=== PATIENT | female | born 1985 | race Caucasian/White ===

== ENCOUNTER 2016-11-05 18:17 | Inpatient (IN) | payer OTHER ==
[2016-11-06] MEDS ORDERED: Mineral Oil Sterile, TOPICAL* 25 ML BTL ONE (03:20)
[2016-11-06] MEDS ORDERED: Acetaminophen TAB* 325 MG PO PRN (07:33)
[2016-11-06] MEDS ORDERED: Glycerin ADULT SUPP PR PRN (07:33)
[2016-11-06] MEDS ORDERED: Oxytocin in LR* 20 UNITS/1,000 ML BAG IVPB SCH (08:00)
[2016-11-06] MEDS ORDERED: Simethicone CHEW TAB* 80 MG PO SCH (08:30)
[2016-11-06] MEDS: Ibuprofen TAB* 600 MG PO PRN ×3 (08:32→20:18)
[2016-11-06] MEDS: Witch Hazel PAD* JAR TOPICAL PRN (08:37)
[2016-11-06] MEDS: Dibucaine 1% 28.35 GM TUBE PR PRN (08:37)
[2016-11-06] MEDS ORDERED: OXYTOCIN* 10 UNITS/ML 1 ML VIAL ONE (09:26)
[2016-11-06] MEDS: Docusate CAP* 100 MG PO SCH ×2 (11:22→20:19)
[2016-11-07] MEDS: Ibuprofen TAB* 600 MG PO PRN ×3 (06:06→18:02)
[2016-11-07 07:07] LABS: Hematocrit 28 % (35-47); Hemoglobin 9.5 g/dl (12.0-16.0); Mean Corpuscular HGB Conc 33 g/dl (31-36); Mean Corpuscular Hemoglobin 31 pg (27-31); Mean Corpuscular Volume 92 fL (80-97); Mean Platelet Volume 9 um3 (7.4-10.4); Red Blood Count 3.08 10^6/ul (4.0-5.4); Red Cell Distribution Width 13 % (10.5-15)
--- NOTE | 2016-11-07 07:29 | PTEDU ---
Patient Name: SHONDA ARREDONDO SHONDA ARREDONDO selected video: Follow Me Mum: [facility] to view on 017 at 7:28:49 AM [id number]
--- NOTE | 2016-11-07 08:23 | PTEDU ---
Patient Name: SHONDA ARREDONDO SHONDA ARREDONDO selected video: Follow Me Mum: [facility] [place] [facility] to view on 017 at 8:22:51 [id number]
[2016-11-07] MEDS: Docusate CAP* 100 MG PO SCH ×3 (09:34→21:19)
[2016-11-07] MEDS: Ferrous Gluconate TAB* 324 MG TAB PO SCH ×2 (09:34→21:19)
[2016-11-08] MEDS: Ibuprofen TAB* 600 MG PO PRN ×2 (00:27→09:06)
[2016-11-08 08:12] VITALS: BP 111/57
[2016-11-08] MEDS: Docusate CAP* 100 MG PO SCH (09:01)
[2016-11-08] MEDS: Ferrous Gluconate TAB* 324 MG TAB PO SCH (09:01)
[2016-11-08] MEDS: Dibucaine 1% 28.35 GM TUBE PR PRN (10:41)
[2016-11-08] MEDS: Witch Hazel PAD* JAR TOPICAL PRN (10:41)
== END 2016-11-08 11:20 | disposition home or self-care (01) | DRG 775 ==
LOC: MCHOBOUT 18:17 → MCHOB 19:20
PROVIDERS: ADMIT Nurse Practitioner; ATTEND Nurse Practitioner
PROC: 4A1HX4Z Monitoring of Products of Conception, Cardiac Electrical Activity, External Approach (ICD-10-PCS; principal; 2016-11-05)
PROC: 10E0XZZ Delivery of Products of Conception, External Approach (ICD-10-PCS; 2016-11-05)
PROC: 0KQM0ZZ Repair Perineum Muscle, Open Approach (ICD-10-PCS; 2016-11-05)
PROC: 0W8NXZZ Division of Female Perineum, External Approach (ICD-10-PCS; 2016-11-05)
DX: O48.0 Post-term pregnancy (principal); O90.81 Anemia of the puerperium; O70.1 Second degree perineal laceration during delivery; Z37.0 Single live birth; Z3A.40 40 weeks gestation of pregnancy
CPT/HCPCS: 36415; 85025; A9270-GY; J2590

== ENCOUNTER 2019-07-25 06:00 | Inpatient (IN) | payer BC ==
--- OUTSIDE RECORDS SUMMARY | 2019-07-25 06:04 | XMS REPORT | Continuity of Care Document ---
:1985 External Reference #:[id number] Author Name Abida Perez MD (transmitted by agent of provider Makayla Serrano) Address [address] [place] [address] Problems Active Problems Provider Date Multigravida Danika Moncada CNM Onset: 03/26/2019 Placenta previa Danika Moncada CNM Onset: 03/26/2019 Social History Type Date Description Comments Sex Unknown Cigarette Use Does Not Smoke Cigarettes ETOH Use Alcohol Use Prior To 1 Glass of Wine Per Day Tobacco Use Start: Unknown Patient has never smoked Recreational Drug Use Does Not Use Drugs Smoking Status Reviewed: 07/20/19 Patient has never smoked Exercise Type/Frequency Exercises regularly Seat Belt/Car Seat Always uses seat belt EDITH: 11/05/2016 Estimated Date of Based on LMP Delivery Allergies, Adverse Reactions, Alerts Description No Known Drug Allergies Medications Active Medications SIG Qnty Indications Ordering Provider Date Breast Pump electric breast 1units Z39.1 Maryanne Pappas, 04/27/2019 Misc pump for lactating CNM mother Vitamins Unknown Medications Administered in Office Medication SIG Qnty Indications Ordering Provider Date Doc Med RSN No Tbco SCRN Abida Perez MD 07/20/2019 Injection PT SCRN Tbco Id as Non User Abida Perez MD 07/20/2019 Injection Immunizations CPT Code Status Date Vaccine Lot # [id number] Given 06/22/2019 Tetnus, Diptheria Toxoids And Acellular Pertussis, [id number] PT > 7Yrs Old [id number] Given 08/10/2016 Tetnus, Diptheria Toxoids And Acellular Pertussis, [id number] PT > 7Yrs Old Vital Signs Date Vital Result Comment 07/20/2019 3:02pm BP Systolic 124 mmHg BP Diastolic 76 mmHg Body Temperature 98.4 F Heart Rate 82 /min Respiratory Rate 16 /min Height 65.50 inches 5'5.50" Weight 176.00 lb BMI (Body Mass Index) 28.8 kg/m2 Last Menstrual Period 1291670 2 Parity 1 01/19/2019 1:12pm BP Systolic 112 mmHg BP Diastolic 68 mmHg Height 65.50 inches 5'5.50" Weight 137.00 lb BMI (Body Mass Index) 22.4 kg/m2 Last Menstrual Period 0046924 2 Parity 1 Results Test Acquired Date Facility Test Result H/L Range Note CBC Auto 07/19/2019 [facility] White Blood 11.8 10^3/uL High 3.5-10.8 [place] [address] Count [phone] Red Blood Count 3.60 10^6/uL Low 3.70-4.87 Hemoglobin 11.4 g/dL Low 12.0-16.0 Hematocrit 32 % Low 35-47 Mean Corpuscular Volume 90 fL Normal 80-97 Mean Corpuscular Hemoglobin 32 pg High 27-31 Mean Corpuscular HGB Conc 35 g/dL Normal 31-36 Red Cell Distribution Width 13 % Normal 10-15 Platelet Count 188 10^3/uL Normal 150-450 Mean Platelet Volume 8.0 fL Normal 7.4-10.4 Abs Neutrophils 9.0 10^3/uL High 1.5-7.7 Abs Lymphocytes 1.6 10^3/uL Normal 1.0-4.8 Abs Monocytes 1.1 10^3/uL High 0-0.8 Abs Eosinophils 0.1 10^3/uL Normal 0-0.6 Abs Basophils 0.1 10^3/uL Normal 0-0.2 Abs Nucleated RBC 0.0 10^3/uL Granulocyte % 76.3 % Lymphocyte % 13.1 % Monocyte % 9.1 % Eosinophil % 0.8 % Basophil % 0.7 % Nucleated Red Blood Cells % 0.0 Manual 07/19/2019 [facility] Immature 9.0 % Normal 0-9 [place] [address] Granulocytes [phone] Neutrophil % 67.0 % Band % 5.0 % Normal 0-8 Lymphocytes % 17.0 % Monocytes % 6.0 % Eosinophils % 1.0 % Metamyelocytes % 2.0 % Normal 0-2 Myelocytes % 2.0 % High 0-1 RBC Morphology Normal Normal Type And Screen 07/19/2019 [facility] Patient Blood [place] [address] [phone] Antibody Screen NEGATIVE Laboratory test 07/19/2019 [facility] 0.0 1 [place] [address] Hemoglobin [phone] Stain Laboratory test 07/11/2019 [facility] Genital For GRP SEE RESULT 2 [place] [address] B Strep Only BELOW [phone] Laboratory test 06/01/2019 [facility] Glucose 1 HR 98 mg/dL Normal 70-16 3 [place] [address] Post Prandial 0 [phone] CBC With No 06/01/2019 [facility] White Blood 10.0 Normal 3.5- 1 [place] [address] Count 10^3/uL 0.8 [phone] Red Blood Count 3.61 10^6/uL Low 3.70-4.87 Hemoglobin 11.4 g/dL Low 12.0-16.0 Hematocrit 34 % Low 35-47 Mean Corpuscular Volume 93 fL Normal 80-97 Mean Corpuscular Hemoglobin 32 pg High 27-31 Mean Corpuscular HGB Conc 34 g/dL Normal 31-36 Red Cell Distribution Width 13 % Normal 10-15 Platelet Count 191 10^3/uL Normal 150-450 Mean Platelet Volume 8.0 fL Normal 7.4-10.4 Laboratory test finding 03/26/2019 [facility] PDF Report SEE IMAGE [id number] Serum Integrated 03/26/2019 [facility] Interpretation: SEE NOTE 4 Screen, Part 2(MA) Risk for Ontd <1:5000 Age Risk Down Syndrome 1:480 GUILLAUME Down Syndrome Risk <1:5000 <1:270 GUILLAUME Trisomy 18 Risk <1:5000 <1:100 Calc'd Gestational Age 19.9 Afp, Serum 52.4 ng/mL Afp MoM 0.90 5 hCG, Serum 21.3 IU/mL hCG MoM 1.02 Estriol, Free 1.73 ng/mL Estriol MoM 0.95 Inhibin A, Dimeric 151 pg/mL Inhibin A MoM 0.78 Elise-A 65598.5 ng/mL 6 Elise-A MoM 14.50 7 Referring Physician Name CHARLOTTE Referring Physician Phone ON TEST REQ ABOV <SEE NOTE> 8 Referring Physician Npi [id number] Specimen # from Part 1 [id number] Date of 1985 Collection Date 03/26/2019 Maternal Weight 137 lbs Est'd Date of Delivery 08/14/2019 Mother's Ethnic Origin Insulin Depend Diabetic NO Repeat Specimen NO Number of Fetuses 1 Hx Of Neural Tube Defects NOT GIVEN Cigarette smoker NO 9 Laboratory test 02/19/2019 [facility] Miscellaneous Test See Comment [address] [place] [address] [phone] Zika Screen 02/05/2019 [facility] Zika Screen [place], SEE RESULT 11 [place] [place] [address] Serum BELOW [phone] Zika Screen [place], Urine SEE RESULT BELOW 12 Laboratory test finding 02/02/2019 [facility] PDF Report SEE IMAGE [id number] Serum Integrated 02/02/2019 [facility] Comment: SEE NOTE 13 Screen, Part 1 ([place]) Referring Physician Name DANIKA CHOUDHURYKIRILLCAROL Referring Physician Phone ON ABOVE Referring Physician Npi [id number] Date of 1985 Collection Date 02/02/2019 Maternal Weight 137 lbs Est'd Date of Delivery 08/14/2019 EDITH Determined by LMP Mother's Ethnic Origin Number of Fetuses 1 Insulin Depend Diabetic NO Repeat Specimen NO Hx Of Neural Tube Defects NOT GIVEN Prev Down Synd NO Donor Egg NOT GIVEN Donor Age: Egg Retrieval NOT GIVEN Cigarette smoker NO 1 Hemoglobin Interpretation: % Cells Volume of Maternal Hemorrhage 0.0 - 0.0045 Up to 15 ml 0.0046 - 0.0090 15 - 30 ml 0.0091 - 0.0135 30 - 45 ml 0.0136 - 0.0180 45 - 60 ml 0.0181 - 0.0225 60 - 75 ml 2 SEE RESULT BELOW Name: SHONDA ARREDONDO : [address]: Ricci Rudolph DO Acct: [id number] Unit: [id number] AGE: 33 Location: [facility] Re07/11/19 SEX: F Status: REG REF SPEC: [id number] VON: 07/11/19-[address]: Ricci Rudolph DO REQ: [id number] RECD: 07/11/19 STATUS: COMP _ SOURCE: RAJ/ANEESH/GOLD SPDESC: ORDERED: Blanca Seguran COMMENTS: [id number] QUERIES: Is Patient Penicillin Allergic? N Is patient penicillin allergic and/or sensitivities needed? N Provider Requisition # C77#[id number]_ Procedure Result Reported Site Group B Strep Culture Screen Final 07/13/19- 0809 ML Group B Strep Screen Negative * [facility] - Main Lab . END OF REPORT DEPARTMENT OF PATHOLOGY, [address] [place] [address] Phi Vazquez M.D. Director [facility] # [id number] 3 [id number] SCREEN NEGATIVE FOR OPEN NTD, DOWN SYNDROME AND TRISOMY 18. 5 Reference Range: <2.50 IDD <1.90 TWINS <4.00 TWINS IDD <3.50 TRIPLETS <4.50 6 This test was performed using a kit that has not been cleared or approved by the FDA. The analytical performance characteristics of this test have been determined by [employer] [facility]. This test should not be used for diagnosis without confirmation by other medically established means. 7 The Serum Integrated Screen combines ELISE-A in the first trimester with AFP, unconjugated estriol, intact hCG and Inhibin A in the second trimester. This provides a useful screening test for detection of open neural tube defects, Down syndrome and Trisomy 18. It should be noted that normal results can never guarantee the of a normal baby and that 2 to 3 percent of newborns have some type of physical or mental defect, many of which are undetectable through any known diagnostic technique. Interpretation reviewed by: Sherley Baltazar, Ph.D., [facility]. 8 ON TEST REQ ABOVE 9 This is a screening test, not a diagnostic test. This risk assessment is based on demographic data provided by the ordering physician. Please notify the laboratory promptly if any data are incorrect. It has been observed that patients who smoke cigarettes during may have a slightly increased risk of having a false positive GUILLAUME screen for Down Syndrome or trisomy 18. If you have questions concerning this report: For clinical consultation, call ; For technical questions, call ext [phone]; For recalculations, fax to . For additional information, please refer to http://[employer]/faq/FAQ78 (This link is being provided for informational/educational purposes only.) 10 Test Result Flag Unit RefValue Controlled Substance Monitoring, U List Patient's Not Provided Current Medications ADDITIONAL INFORMATION Accuracy and completeness of declared medications on reports solely dependent on information submitted by client. Creatinine, U 23.2 mg/dL Specific [place] 1.006 pH 5.4 Oxidants Negative REFERENCE VALUE Cutoff: 200 mg/L Comment Normal Amphetamines Negative ng/mL REFERENCE VALUE Cutoff: 500 Barbiturates Negative ng/mL REFERENCE VALUE Cutoff: 200 Cocaine Negative ng/mL REFERENCE VALUE Cutoff: 150 Phencyclidine Negative ng/mL Cutoff: 25 Tetrahydrocannabinol Negative ng/mL Cutoff: 50 ADDITIONAL INFORMATION This report is intended for use in clinical monitoring or management of patients. It is not intended for use in employment-related testing. Codeine Not Detected ng/mL Cutoff: 25 Tylenol 3 Tzluxtf-2-kstg- Not Detected ng/mL glucuronide Metabolite of codeine REFERENCE VALUE Cutoff: 100 Morphine Not Detected ng/mL Cutoff: 25 Luana Ham MS Contin; Also a minor metabolite (10%) of codeine and can be seen in low concentrations (<2,000 ng/mL) with poppy seed ingestion. Pzwsyfqi-0-mces- Not Detected ng/mL glucuronide Metabolite of morphine REFERENCE VALUE Cutoff: 100 6-monoacetylmorphine Not Detected ng/mL Cutoff: 25 Metabolite of heroin Hydrocodone Not Detected ng/mL Cutoff: 25 Lortab, [place], Vicodin; Also a very minor metabolite of codeine and impurity (<1%) of oxycodone. Norhydrocodone Not Detected ng/mL Cutoff: 25 Metabolite of hydrocodone Dihydrocodeine Not Detected ng/mL Cutoff: 25 Metabolite of hydrocodone Hydromorphone Not Detected ng/mL Cutoff: 25 Dilaudid, Exalgo; Also a metabolite of hydrocodone and a minor (<5%) metabolite of morphine. Hydromorphone-3- Not Detected ng/mL beta-glucuronide Metabolite of hydromorphone REFERENCE VALUE Cutoff: 100 Oxycodone Not Detected ng/mL Cutoff: 25 Endocet, Percocet, Oxycontin Noroxycodone Not Detected ng/mL Cutoff: 25 Metabolite of oxycodone Oxymorphone Not Detected ng/mL Cutoff: 25 Numorphan, Opana; Also a metabolite of oxycodone. Ywavgfhppqe-0-vndg- Not Detected ng/mL glucuronide Metabolite of oxymorphone REFERENCE VALUE Cutoff: 100 Noroxymorphone Not Detected ng/mL Cutoff: 25 Metabolite of oxymorphone Fentanyl Not Detected ng/mL Cutoff: 2 Actiq, Duragesic, Fentora Norfentanyl Not Detected ng/mL Cutoff: 2 Metabolite of fentanyl Meperidine Not Detected ng/mL Cutoff: 25 Demerol Normeperidine Not Detected ng/mL Cutoff: 25 Metabolite of meperidine Naloxone Not Detected ng/mL Cutoff: 25 Narcan Flyhydru-8-whwa- Not Detected ng/mL glucuronide Metabolite of naloxone REFERENCE VALUE Cutoff: 100 Methadone Not Detected ng/mL Cutoff: 25 Dolophine EDDP Not Detected ng/mL Cutoff: 25 Metabolite of methadone Propoxyphene Not Detected ng/mL Cutoff: 25 Darvon, Darvocet Norpropoxyphene Not Detected ng/mL Cutoff: 25 Metabolite of propoxyphene Tramadol Not Detected ng/mL Cutoff: 25 Tradol, Ultram, Ultracet O-desmethyltramadol Not Detected ng/mL Cutoff: 25 Metabolite of tramadol Tapentadol Not Detected ng/mL Cutoff: 25 Nucynta N- Not Detected ng/mL Cutoff: 50 desmethyltapentadol Metabolite of tapentadol Tapentadol-beta- Not Detected ng/mL glucuronide Metabolite of tapentadol REFERENCE VALUE Cutoff: 100 Buprenorphine Not Detected ng/mL Cutoff: 5 Buprenex, Suboxone Norbuprenorphine Not Detected ng/mL Cutoff: 5 Metabolite of buprenorphine Norbuprenorphine Not Detected ng/mL Cutoff: 20 glucuronide Metabolite of buprenorphine Opioid See Comment Interpretation No opioids were detected. The absence of expected drug(s) and/or drug metabolite(s) may indicate non-compliance, altered pharmacokinetics, inappropriate timing of specimen collection relative to drug administration, diluted/adulterated urine, or limitations of testing. ADDITIONAL INFORMATION This test was developed and its performance characteristics determined by [facility] in a manner consistent with CLIA requirements. This test has not been cleared or approved by the U.S. Food and Drug Administration. Alprazolam Not Detected ng/mL Cutoff: 10 Xanax Alpha- Not Detected ng/mL Cutoff: 10 Hydroxyalprazolam Metabolite of Alprazolam Alpha- Not Detected ng/mL Cutoff: 50 Hydroxyalprazolam Glucuronide Metabolite of Alprazolam Chlordiazepoxide Not Detected ng/mL Cutoff: 10 Librium Clobazam Not Detected ng/mL Cutoff: 10 Frisium, Onfi N-Desmethylclobazam Not Detected ng/mL Metabolite of Clobazam REFERENCE VALUE Cutoff: 200 Clonazepam Not Detected ng/mL Cutoff: 10 Klonopin, Rivotril 7-aminoclonazepam Not Detected ng/mL Cutoff: 10 Metabolite of Clonazepam Diazepam Not Detected ng/mL Cutoff: 10 Valium Nordiazepam Not Detected ng/mL Cutoff: 10 Metabolite of Chlordiazepoxide, Diazepam, or Prazepam. Flunitrazepam Not Detected ng/mL Cutoff: 10 Rohypnol 7-aminoflunitrazepam Not Detected ng/mL Cutoff: 10 Metabolite of Flunitrazepam Flurazepam Not Detected ng/mL Cutoff: 10 Dalmane 2-Hydroxy Ethyl Not Detected ng/mL Cutoff: 10 Flurazepam Metabolite of Flurazepam Lorazepam Not Detected ng/mL Cutoff: 10 Ativan Lorazepam Not Detected ng/mL Cutoff: 50 Glucuronide Metabolite of Lorazepam Midazolam Not Detected ng/mL Cutoff: 10 Versed Alpha-Hydroxy Not Detected ng/mL Cutoff: 10 Midazolam Metabolite of Midazolam Oxazepam Not Detected ng/mL Cutoff: 10 Serax; Also a metabolite of Chlordiazepoxide, Diazepam, or Temazepam. Oxazepam Glucuronide Not Detected ng/mL Cutoff: 50 Metabolite of Oxazepam Prazepam Not Detected ng/mL Cutoff: 10 Centrax Temazepam Not Detected ng/mL Cutoff: 10 Restoril; Also a metabolite of Diazepam. Temazepam Not Detected ng/mL Cutoff: 50 Glucuronide Metabolite of Temazepam Triazolam Not Detected ng/mL Cutoff: 10 Halcion Alpha-Hydroxy Not Detected ng/mL Cutoff: 10 Triazolam Metabolite of Triazolam Zolpidem Not Detected ng/mL Cutoff: 10 Ambien Zolpidem Phenyl-4- Not Detected ng/mL Cutoff: 10 Carboxylic acid Metabolite of Zolpidem Benzodiazepine See Comment Interpretation No benzodiazepines were detected. The absence of expected drug(s) and/or drug metabolite(s) may indicate non-compliance, altered pharmacokinetics, inappropriate timing of specimen collection relative to drug administration, diluted/adulterated urine, or limitations of testing. ADDITIONAL INFORMATION This test was developed and its performance characteristics determined by [facility] in a manner consistent with CLIA requirements. This test has not been cleared or approved by the U.S. Food and Drug Administration. Test Performed by: [facility] [place] [address] Sales Trader: Nadir Goodson M.D. Ph.D.; CLIA# [id number] 11 SEE RESULT BELOW Name: SHONDA ARREDONDO : [address]: Briseyda Lozano MD Acct: [id number] Unit: [id number] AGE: 33 Location: [facility] Re02/05/19 SEX: F Status: REG REF SPEC: [id number] VON: 02/05/[address] [facility] [address]: Briseyda Lozano MD REQ: [id number] RECD: 02/05/19 STATUS: COMP _ SOURCE: SERUM SPDESC: ORDERED: Zika Screen, S COMMENTS: [id number] Procedure Result Reported Site Zika Screen [facility], Serum Final 02/13/19- 0825 ML Zika virus RNA by real-time RT-PCR*:NOT DETECTED Zika Serology Zika IgM Rapid Test No serologic evidence of recent Zika virus infection detected.If this specimen was collected < 8 days after symptom onset or < 3 weeks after exposure, negative results shouldbe confirmed by collecting another specimen in 3 weeks. If the specimen was collected > 8 days after symptomonset or > 3 weeks after exposure, negative results suggest the absence of current or recent infection. [id number] collected: Negative Please see additional information about zika virus at: Fact Sheet for Patients: Understanding Results from theZika IgM Rapid Test http://[employer]/wp-content/uploads//For-patients.p df Fact Sheet for Healthcare Providers: Interpreting Zika IgM Rapid Test Results http://[employer]/wp-content/uploads//Sqo-cjqtne-now e-workes.pdf For detailed test interpretation guidance, please visit: https://health.[place].gov/diseases/zika_virus/providers.htm CONTINUED ON NEXT PAGE DEPARTMENT OF PATHOLOGY, [address] [place] [address] Phi Vazquez M.D. Director [facility] # [id number] Patient: SHONDA ARREDONDO [id number] (Continued) Specimen: [id number] Collected: 02/05/19 Received: 02/05/19 (Continued) Procedure Result Reported Site Zika Screen [facility], Serum Final (continued) 02/13/19824 Flavivirus Polyvalent Microsphere Immunofluorescence Assay (IgG+IgM+IgA)* Results suggest the absence of Zika and dengue antibodies. If recent infection is suspected collect another specimen in three weeks. Zika Polyvalent Microsphere Immunofluorescence Assay [id number] collected 02/05/19Result:Non-Reactive Dengue Polyvalent Microsphere Immunofluorescence Assay [id number] collected 02/05/19Result:Non-Reactive * The performance characteristics of this test were determined by the [facility]. It has not been cleared or approved by the U.S.Food and Drug Administration. Cross reactivity frequently occurs in serologic testing. Test Performed by: [facility] of [address] [address] * ML - Main Lab . END OF REPORT DEPARTMENT OF PATHOLOGY, [address] [place] [address] Phi Vazquez M.D. Director [facility] # [id number] 12 SEE RESULT BELOW Name: SHONDA ARREDONDO : [address]: Briseyda Lozano MD Acct: [id number] Unit: [id number] AGE: 33 Location: [facility] Re02/05/19 SEX: F Status: REG REF SPEC: [id number] VNO: 02/05/[address] [facility] [address]: Briseyda Lozano MD REQ: [id number] RECD: 02/05/19 STATUS: COMP _ SOURCE: URINE SPDESC: ORDERED: Zika Screen, Ur COMMENTS: [id number] Procedure Result Reported Site Zika Screen [facility], Urine Final 02/13/19- 0826 ML Zika virus RNA by real-time RT-PCR*:NOT DETECTED * The performance characteristics of this test were determined by the [facility]. It has not been cleared or approved by the U.S.Food and Drug Administration. Cross reactivity frequently occurs in serologic testing. Test Performed by: [facility] [address] [place] [address] * ML - Main Lab . END OF REPORT DEPARTMENT OF PATHOLOGY, [address] [place] [address] Phi Vazquez M.D. Director [facility] # [id number] 13 Thank you for submitting this patients Part 1 specimen. Please submit her Part 2 specimen between 02/20/2019-04/16/2019 (15.0 and 22.9 weeks gestation) with 02/20/2019-03/05/2019 (15.0 and 16.9 weeks gestation) being optimal. When submitting Part 2, please include the following Specimen # from Part 1: [id number] This test was developed and its analytical performance characteristics have been determined by [employer] [facility]. It has not been cleared or approved by FDA. This assay has been validated pursuant to the CLIA regulations and is used for clinical purposes. For additional information, please refer to http://education.[employer].Prelert/faq/FAQ91 (This link is being provided for informational/educational purposes only.) It has been observed that patients who smoke cigarettes during may have a slightly increased risk of having a false positive GUILLAUME screen for Down Syndrome or trisomy 18. If you have questions concerning this report: For clinical consultation, call ; For technical questions, call ext [phone]; For recalculations, fax to . Procedures Date Code Description Status 07/20/2019 08285 Biophysical Profile Without Non Stress Test Completed 07/05/2019 87123 Biophysical Profile Without Non Stress Test Completed 07/05/2019 24984 Echography Uterus Follow-Up Or Repeat Completed 06/28/2019 63244 Biophysical Profile W/ NST Completed 06/28/2019 09546 Non-Stress Test Completed 06/22/2019 40698 Biophysical Profile Without Non Stress Test Completed 06/22/2019 33832 Echography Uterus Limited Completed 06/08/2019 16228 Biophysical Profile Without Non Stress Test Completed 06/08/2019 53248 Echography Uterus Follow-Up Or Repeat Completed 03/26/2019 60737 Echography Uterus Complete Completed Medical Devices Description No Information Available Encounters Type Date Location Provider Dx Diagnosis Office Visit 07/20/2019 [facility] Office Abida Perez, O34.211 Matern care for low 3:00p MD transverse scar from prev del Assessments Date Code Description Provider 07/20/2019 O44.13 Complete placenta previa with hemorrhage, Abida Perez MD third trimester 07/20/2019 O34.211 Maternal care for low transverse scar from Abida Perez MD previous delivery 07/20/2019 O44.13 Complete placenta previa with hemorrhage, Ultrasounds third trimester 07/11/2019 O44.03 Complete placenta previa NOS or without Ricci Rudolph JR, DO hemorrhage, third trimester 07/05/2019 O44.13 Complete placenta previa with hemorrhage, Mary Ann Rios MD third trimester 07/05/2019 O44.03 Complete placenta previa NOS or without Mary Ann Rios MD hemorrhage, third trimester 07/05/2019 O44.13 Complete placenta previa with hemorrhage, Ultrasounds third trimester 06/28/2019 Z36.9 Encounter for screening, Dennis Estes M.D. unspecified 06/28/2019 O44.13 Complete placenta previa with hemorrhage, Dennis Estes M.D. third trimester 06/28/2019 O44.13 Complete placenta previa with hemorrhage, Ultrasounds third trimester 06/22/2019 O44.13 Complete placenta previa with hemorrhage, Mary Ann Rios MD third trimester 06/22/2019 Z23 Encounter for immunization Mary Ann Rios MD 06/22/2019 O44.13 Complete placenta previa with hemorrhage, Mary Ann Rios MD third trimester 06/22/2019 O44.13 Complete placenta previa with hemorrhage, Ultrasounds third trimester 06/22/2019 O41.03x1 Oligohydramnios, third trimester, fetus 1 Mary Ann Rios MD 06/08/2019 O44.02 Complete placenta previa NOS or without Ricci Ronni CABRERA, DO hemorrhage, second trimester 06/08/2019 O44.03 Complete placenta previa NOS or without Xiomara Rivera, CNM hemorrhage, third trimester 06/08/2019 O44.02 Complete placenta previa NOS or without Ultrasounds hemorrhage, second trimester 06/01/2019 Z36.9 Encounter for screening, Mary Ann Rios MD unspecified 06/01/2019 Z36.9 Encounter for screening, Laboratory unspecified 04/23/2019 O44.02 Complete placenta previa NOS or without Danika Moncada CNM hemorrhage, second trimester 03/26/2019 Z36.9 Encounter for screening, Mary Ann Rios MD unspecified 03/26/2019 Z36.3 Encounter for screening for Briseyda Lozano MD malformations 03/26/2019 Z36.3 Encounter for screening for Ultrasounds malformations 03/26/2019 O44.02 Complete placenta previa NOS or without Danika Moncada CNM hemorrhage, second trimester 03/26/2019 Z36.9 Encounter for screening, Laboratory unspecified 02/19/2019 Z34.82 Encounter for supervision of other normal Maryanne Pappas CNM , second trimester 02/05/2019 Z36.9 Encounter for screening, Briseyda Lozano MD unspecified 02/05/2019 Z36.9 Encounter for screening, Laboratory unspecified 02/02/2019 Z36.9 Encounter for screening, Briseyda Lozano MD unspecified 02/02/2019 Z36.9 Encounter for screening, Laboratory unspecified 02/02/2019 Z34.81 Encounter for supervision of other normal Danika Moncada CNM , first trimester Plan of Treatment Future Appointment(s):08/28/2019 11:00 am - Abida Perez MD at [facility] 2:00 pm - Danika Moncada CNM at [facility]07/25/2019 7:45 am - Abida Perez MD [place] [facility] [place] R007/20/2019 - Abida Perez MDO34.211 Maternal care for low transverse scar from previous deliveryComments:Plans PCS. Reviewed how/when to call prior to that. Reviewed risks of procedure including but not limited to hemorrhage, infection, pain blood clots and injury to nearby organs. Consents signed and questions answered. Reviewed recovery and importance of no heavy lifting or straining.RTO 1wk andthen 1mo for post-op visit. Functional Status Description No Information Available Mental Status Description No Information Available Referrals Description No Information Available
--- OUTSIDE RECORDS SUMMARY | 2019-07-25 06:04 | XMS REPORT | Continuity of Care Document ---
:1985 External Reference #:[id number] Author Name Ultrasounds (transmitted by agent of provider Makayla Serrano) Address [address] [place] [address] Problems Active Problems Provider Date Multigravida Danika [...] Date Breast Pump electric breast 1units Z39.1 Arnolgabriel Pradoes, 04/27/2019 Misc pump for lactating CNM mother Vitamins Unknown Medications Administered in Office Medication SIG Qnty Indications Ordering Provider Date PT SCRN Tbco Id as Non User Abida Perez MD 07/20/2019 Injection Immunizations CPT Code Status Date Vaccine Lot # [id number] Given 06/22/2019 Tetnus, Diptheria Toxoids And Acellular Pertussis, [id number] PT > 7Yrs Old [address] Given 08/10/2016 Tetnus, Diptheria Toxoids And Acellular Pertussis, [id number] PT > 7Yrs Old Vital Signs Date Vital Result Comment 07/20/2019 3:02pm BP Systolic 124 mmHg BP Diastolic 76 mmHg Body Temperature 98.4 F Heart Rate 82 /min Respiratory Rate 16 /min Height 65.50 inches 5'5.50" Weight 176.00 lb BMI (Body Mass Index) 28.8 kg/m2 Last Menstrual Period [id number] 2 Parity 1 01/19/2019 1:12pm BP Systolic 112 mmHg BP Diastolic 68 mmHg Height 65.50 inches 5'5.50" Weight 137.00 lb BMI (Body Mass Index) 22.4 kg/m2 Last Menstrual Period 9648982 2 Parity 1 Results Test Acquired Date Facility Test Result H/L Range Note CBC Auto 07/19/2019 [facility] White Blood 11.8 10^3/uL High 3.5-10.8 [place] [address] Count [phone] Red Blood Count 3.60 10^6/uL Low 3.70-4.87 [...] Red Blood Cells % 0.0 Manual 07/19/2019 [facility] Immature 9.0 % Normal 0-9 [place] [address] Granulocytes [phone] Neutrophil % 67.0 % Band % 5.0 % Normal 0-8 Lymphocytes % 17.0 % Monocytes % 6.0 % Eosinophils % 1.0 % Metamyelocytes % 2.0 % Normal 0-2 Myelocytes % 2.0 % High 0-1 RBC Morphology Normal Normal Type And Screen 07/19/2019 [facility] Patient [place] [address] [phone] Antibody Screen NEGATIVE Laboratory test 07/19/2019 [facility] 0.0 1 [place] [address] Hemoglobin [phone] Stain Laboratory test 07/11/2019 [facility] Genital For GRP SEE RESULT 2 [place] [address] B Strep Only BELOW [phone] Laboratory test 06/01/2019 [facility] Glucose 1 HR 98 mg/dL Normal 70-16 3 [place] [address] Post Prandial 0 [phone] CBC With No 06/01/2019 [facility] White Blood 10.0 Normal 3.5- 1 [place] [address] Count 10^3/uL 0.8 [phone] Red Blood Count 3.61 10^6/uL Low 3.70-4.87 [...] [facility] Enhanced PDF Report SEE IMAGE [id number] Serum Integrated 03/26/2019 [facility] Interpretation: SEE NOTE 4 Screen, Part 2(IN) Risk for Ontd <1:5000 Age Risk Down Syndrome 1:480 GUILLAUME Down Syndrome Risk <1:5000 <1:270 GUILLAUME Trisomy 18 Risk <1:5000 <1:100 Calc'd Gestational Age 19.9 Afp, Serum 52.4 ng/mL Afp MoM 0.90 5 hCG, Serum 21.3 IU/mL hCG MoM 1.02 Estriol, Free 1.73 ng/mL Estriol MoM 0.95 Inhibin A, Dimeric 151 pg/mL Inhibin A MoM 0.78 Elise-A 56155.5 ng/mL 6 Elise-A MoM 14.50 7 Referring Physician Name MACARALD Referring Physician Phone ON TEST REQ ABOV <SEE NOTE> 8 Referring Physician Npi [id number] Specimen # from Part 1 [id number] Date of 1985 Collection Date 03/26/2019 Maternal Weight 137 lbs Est'd Date of Delivery 08/14/2019 Mother's Ethnic Origin Insulin Depend Diabetic NO Repeat Specimen NO Number of Fetuses 1 Hx Of Neural Tube Defects NOT GIVEN Cigarette smoker NO 9 Laboratory test 02/19/2019 [facility] Miscellaneous Test See Comment [address] [place] [address] [phone] Zika Screen 02/05/2019 [facility] Zika Screen [place], SEE RESULT 11 [place] ([facility] [place] [place] [address] Serum BELOW [phone] Zika Screen [place], Urine SEE RESULT BELOW 12 Laboratory test finding 02/02/2019 [facility] Enhanced PDF Report SEE IMAGE [id number] Serum Integrated 02/02/2019 [facility] Comment: SEE NOTE 13 Screen, Part 1 (IN) Referring Physician Name DANIKA MONCADA Referring Physician Phone ON ABOVE Referring Physician Npi [id number] Date of 1985 Collection Date 02/02/2019 Maternal [...] [address]: Ricci Rudolph DO Acct: [id number] Unit: [id number] AGE: 33 Location: [facility] Re07/11/19 SEX: F Status: REG REF SPEC: [id number] VON: 07/11/19-[address]: Ricci Rudolph DO REQ: [id number] RECD: 07/11/19 STATUS: COMP _ SOURCE: CER/VAG/RE SPDESC: ORDERED: Grp B Strp Scrn COMMENTS: [id number] QUERIES: Is Patient Penicillin Allergic? N Is patient penicillin allergic and/or sensitivities needed? N Provider Requisition # C77#[id number] Procedure Result Reported Site Group B Strep Culture Screen Final 07/13/19- 0809 ML Group B Strep Screen Negative * ML - Main Lab . END OF REPORT DEPARTMENT OF PATHOLOGY, [address] [place] [address] Phi Vazquez M.D. Director [facility] # [id number] 3 [id number] SCREEN NEGATIVE FOR OPEN NTD, DOWN SYNDROME AND TRISOMY 18. 5 Reference Range: <2.50 IDD <1.90 TWINS <4.00 TWINS IDD <3.50 TRIPLETS <4.50 6 This test was performed using a kit that has not been cleared or approved by the FDA. The analytical performance characteristics of this test have been determined by [facility]. This test should not be used for diagnosis without confirmation by other medically established means. 7 The Serum Integrated Screen combines ELIES-A in the first trimester with AFP, unconjugated [...] technique. Interpretation reviewed by: Sherley Baltazar, Ph.D., [facility] [place] [facility]. 8 ON TEST REQ ABOVE 9 This [...] call ; For technical questions, call ext [phone]; For recalculations, fax to . For additional information, please refer to http://[employer].CubeTree/faq/FAQ25 (This link is being provided for informational/educational purposes only.) 10 Test Result Flag Unit RefValue Controlled Substance Monitoring, U List Patient's Not Provided Current Medications ADDITIONAL INFORMATION Accuracy and completeness of declared medications on reports solely dependent on information submitted by client. Creatinine, U 23.2 mg/dL Specific [place] 1.006 pH 5.4 Oxidants Negative REFERENCE VALUE [...] Not Detected ng/mL Cutoff: 25 Tylenol 3 Mmoypkw-7-gbsa- Not Detected ng/mL glucuronide Metabolite of codeine REFERENCE VALUE Cutoff: 100 Morphine Not Detected ng/mL Cutoff: 25 Luana Ham MS Contin; Also a minor metabolite (10%) of codeine and can be seen in low concentrations (<2,000 ng/mL) with poppy seed ingestion. Lwastvoc-9-pwwz- Not Detected ng/mL glucuronide Metabolite of morphine REFERENCE VALUE Cutoff: 100 6-monoacetylmorphine Not Detected ng/mL Cutoff: 25 Metabolite of heroin Hydrocodone Not Detected ng/mL Cutoff: 25 Lortab, [place], Vicodin; Also a very minor metabolite of [...] Numorphan, Opana; Also a metabolite of oxycodone. Pvmrkxpfihp-1-qqzb- Not Detected ng/mL glucuronide Metabolite of oxymorphone REFERENCE VALUE Cutoff: 100 Noroxymorphone Not Detected ng/mL Cutoff: 25 Metabolite of oxymorphone Fentanyl Not Detected ng/mL Cutoff: 2 Actiq, Duragesic, [place] Norfentanyl Not Detected ng/mL Cutoff: 2 Metabolite of fentanyl Meperidine Not Detected ng/mL Cutoff: 25 Demerol Normeperidine Not Detected ng/mL Cutoff: 25 Metabolite of meperidine Naloxone Not Detected ng/mL Cutoff: 25 Narcan Salgwukv-6-jyqx- Not Detected ng/mL glucuronide Metabolite of naloxone [...] developed and its performance characteristics determined by [facility] in a manner consistent with CLIA requirements. [...] developed and its performance characteristics determined by [facility] in a manner consistent with CLIA requirements. This test has not been cleared or approved by the U.S. Food and Drug Administration. Test Performed by: [facility] [address] [place] [address] Skein Yarn Dyer: Nadir Goodson M.D. Ph.D.; CLIA# [id number] 11 SEE RESULT BELOW Name: ARNULFOSHONDA UNDERWOOD : [address]: Briseyda Lozano MD Acct: [id number] Unit: [id number] AGE: 33 Location: [facility] Re02/05/19 SEX: F Status: REG REF SPEC: [id number] VON: 02/05/[address]: Briseyda Lozano MD REQ: [id number] RECD: 02/05/19 STATUS: COMP _ SOURCE: SERUM SPDESC: ORDERED: Nathaniel Burton S COMMENTS: [id number] Procedure Result Reported Site Zika Screen [facility], Serum Final 02/13/19- 0825 ML Zika virus [...] the absence of current or recent infection. [id number] collected: Negative Please see additional information about zika virus at: Fact Sheet for Patients: Understanding Results from theZika IgM Rapid Test http://Magiq/wp-content/uploads//For-patients.p df Fact Sheet for Healthcare Providers: Interpreting Zika IgM Rapid Test Results http://Magiq/wp-content/uploads//Ido-crpsin-myl e-workes.pdf For detailed test interpretation guidance, please visit: https://health.[place].gov/diseases/zika_virus/providers.htm CONTINUED ON NEXT PAGE DEPARTMENT OF PATHOLOGY, [address] [place] [address] Phi Vazquez M.D. Director [facility] # [id number] Patient: SHONDA ARREDONDO [id number] (Continued) Specimen: [id number] Collected: 02/05/19 Received: 02/05/19-1244 (Continued) Procedure Result Reported Site Zika Screen [facility], Serum Final (continued) 02/13/19824 Flavivirus Polyvalent Microsphere Immunofluorescence Assay (IgG+IgM+IgA)* Results suggest the absence of Zika and dengue antibodies. If recent infection is suspected collect another specimen in three weeks. Zika Polyvalent Microsphere Immunofluorescence Assay [id number] collected 02/05/19Result:Non-Reactive Dengue Polyvalent Microsphere Immunofluorescence Assay [id number] collected 02/05/19Result:Non-Reactive * The performance characteristics of this test were determined by the [facility]. It has not been cleared or approved by the U.S.Food and Drug Administration. Cross reactivity frequently occurs in serologic testing. Test Performed by: [address] [address] * - [facility] . END OF REPORT DEPARTMENT OF PATHOLOGY, [address] [place] [address] Phi Vazquez M.D. Director [facility] # [id number] 12 SEE RESULT BELOW Name: SHONDA ARREDONDO : [address]: Briseyda Lozano MD Acct: [id number] Unit: [id number] AGE: 33 Location: [facility] Re02/05/19 SEX: F Status: REG REF SPEC: [id number] VON: 02/05/19-[address]: Briseyda Lozano MD REQ: [id number] RECD: 02/05/19 STATUS: COMP _ SOURCE: URINE SPDC: ORDERED: Zika Screen, Ur COMMENTS: [id number] Procedure Result Reported Site Zika Screen [facility], Urine Final 02/13/19- 08 ML Zika virus RNA by real-time RT-PCR*:NOT DETECTED * The performance characteristics of this test were determined by the [facility]. It has not been cleared or approved by the U.S.Food and Drug Administration. Cross reactivity frequently occurs in serologic testing. Test Performed by: [facility] [address] [place] [address] * [facility] - Main Lab . END OF REPORT DEPARTMENT OF PATHOLOGY, [address] [place] [address] Phi Vazquez M.D. Director [facility] # [id number] 13 Thank you for submitting this patients Part 1 specimen. Please submit her Part 2 specimen between 02/20/2019-04/16/2019 (15.0 and 22.9 weeks gestation) with 02/20/2019-03/05/2019 (15.0 and 16.9 weeks gestation) being optimal. When submitting Part 2, please include the following Specimen # from Part 1: [id number] This test was developed and its analytical performance characteristics have been determined by [facility]. It has not been cleared or approved by FDA. This assay has been validated pursuant to the CLIA regulations and is used for clinical purposes. For additional information, please refer to http://education.Alkymos.com/faq/FAQ91 (This link is being provided for informational/educational purposes only.) It has been observed that patients who smoke cigarettes during may have a slightly increased risk of having a false positive GUILLAUME screen for Down Syndrome or trisomy 18. If you have questions concerning this report: For clinical consultation, call ; For technical questions, call ext [phone]; For recalculations, fax to . Procedures Date Code Description Status 07/20/2019 52197 Biophysical Profile Without Non Stress Test Completed 07/05/2019 22654 Biophysical Profile Without Non Stress Test Completed 07/05/2019 93918 Echography Uterus Follow-Up Or Repeat Completed 06/28/2019 61568 Biophysical Profile W/ NST Completed 06/28/2019 19535 Non-Stress Test Completed 06/22/2019 95521 Biophysical Profile Without Non Stress Test Completed 06/22/2019 71705 Echography Uterus Limited Completed 06/08/2019 59212 Biophysical Profile Without Non Stress Test Completed 06/08/2019 73379 Echography Uterus Follow-Up Or Repeat Completed 03/26/2019 95030 Echography Uterus Complete Completed Medical Devices Description [...] Complete placenta previa NOS or without Ricci Cookamada CABRERA, DO hemorrhage, second trimester 06/08/2019 O44.03 Complete placenta previa NOS or without Xiomarajessica Rivera, CNM hemorrhage, third trimester 06/08/2019 O44.02 Complete placenta previa NOS or without Ultrasounds hemorrhage, second trimester 06/01/2019 Z36.9 Encounter for screening, Mary Ann Rios MD unspecified 06/01/2019 Z36.9 Encounter for screening, Laboratory unspecified 04/23/2019 O44.02 Complete placenta previa NOS or without Danika Moncada, CNM hemorrhage, second trimester 03/26/2019 Z36.9 Encounter for screening, Mary Ann Rios MD unspecified 03/26/2019 Z36.3 Encounter for screening for Briseyda Lozano MD malformations 03/26/2019 Z36.3 Encounter for screening for Ultrasounds malformations 03/26/2019 O44.02 Complete placenta previa NOS or without Danika Moncada, CNM hemorrhage, second trimester 03/26/2019 Z36.9 Encounter [...] 11:00 am - Abida Perez MD at [facility] 2:00 pm - Danika Moncada CNM at [facility]07/25/2019 7:45 am - Abida Perez MD at [place] 4471307/20/2019 - Abida Perez MDO34.211 Maternal care for [...]
--- OUTSIDE RECORDS SUMMARY | 2019-07-25 06:05 | XMS REPORT | Continuity of Care Document ---
:1985 External Reference #:[id number] Author Name Abida Perez MD Address [address] [place] [address] Problems Active Problems Provider Date Multigravida Danika [...] CPT Code Status Date Vaccine Lot # [id number] Given 06/22/2019 Tetnus, Diptheria Toxoids And Acellular Pertussis, [id number] PT > 7Yrs Old [address] Given 08/10/2016 Tetnus, Diptheria Toxoids And Acellular Pertussis, [id number] PT > 7Yrs Old Vital Signs Date Vital Result Comment 07/20/2019 3:02pm BP Systolic 124 mmHg BP Diastolic 76 mmHg Body Temperature 98.4 F Heart Rate 82 /min Respiratory Rate 16 /min Height 65.50 inches 5'5.50" Weight 176.00 lb BMI (Body Mass Index) 28.8 kg/m2 Last Menstrual Period 1379504 2 Parity 1 01/19/2019 1:12pm BP Systolic 112 mmHg BP Diastolic 68 mmHg Height 65.50 inches 5'5.50" Weight 137.00 lb BMI (Body Mass Index) 22.4 kg/m2 Last Menstrual Period 7726106 2 Parity 1 Results Test Acquired Date Facility Test Result H/L Range Note CBC Auto 07/19/2019 [facility] White Blood 11.8 10^3/uL High 3.5-10.8 [place] [address] Count [phone] Red Blood Count 3.60 10^6/uL Low 3.70-4.87 [...] Red Blood Cells % 0.0 Manual 07/19/2019 [facility] Immature 9.0 % Normal 0-9 [place] [address] Granulocytes [phone] Neutrophil % 67.0 % Band % 5.0 % Normal 0-8 Lymphocytes % 17.0 % Monocytes % 6.0 % Eosinophils % 1.0 % Metamyelocytes % 2.0 % Normal 0-2 Myelocytes % 2.0 % High 0-1 RBC Morphology Normal Normal Type And Screen 07/19/2019 [facility] Patient [place] [address] [phone] Antibody Screen NEGATIVE Laboratory test 07/19/2019 [facility] 0.0 1 [place] [address] Hemoglobin [phone] Stain Laboratory test 07/11/2019 [facility] Genital For GRP SEE RESULT 2 [place] [address] B Strep Only BELOW [phone] CBC With No 06/01/2019 [facility] White Blood 10.0 Normal 3.5- 1 [place] [address] Count 10^3/uL 0.8 [phone] Red Blood Count 3.61 10^6/uL Low 3.70-4.87 Hemoglobin 11.4 g/dL Low 12.0-16.0 Hematocrit 34 % Low 35-47 Mean Corpuscular Volume 93 fL Normal 80-97 Mean Corpuscular Hemoglobin 32 pg High 27-31 Mean Corpuscular HGB Conc 34 g/dL Normal 31-36 Red Cell Distribution Width 13 % Normal 10-15 Platelet Count 191 10^3/uL Normal 150-450 Mean Platelet Volume 8.0 fL Normal 7.4-10.4 Laboratory test 06/01/2019 [facility] Glucose 1 HR 98 mg/dL Normal 70-160 3 [place] [address] Post Prandial [phone] Laboratory test 03/26/2019 [facility] PDF SEE IMAGE finding Report [id number] Serum Integrated 03/26/2019 [facility] Interpretatio SEE NOTE 4 Screen, Part n: 2(NH) Risk for Ontd <1:5000 Age Risk Down Syndrome 1:480 GUILLAUME Down Syndrome Risk <1:5000 <1:270 GUILLAUME Trisomy 18 Risk <1:5000 <1:100 Calc'd Gestational Age 19.9 Afp, Serum 52.4 ng/mL Afp MoM 0.90 5 hCG, Serum 21.3 IU/mL hCG MoM 1.02 Estriol, Free 1.73 ng/mL Estriol MoM 0.95 Inhibin A, Dimeric 151 pg/mL Inhibin A MoM 0.78 Elise-A 90785.5 ng/mL 6 Elise-A MoM 14.50 7 Referring Physician Name MACARALD Referring Physician Phone ON TEST REQ ABOV <SEE NOTE> 8 Referring Physician Npi [id number] Specimen # from Part 1 [id number] Date of 1985 Collection Date 03/26/2019 Maternal Weight 137 lbs Est'd Date of Delivery 08/14/2019 Mother's Ethnic Origin Insulin Depend Diabetic NO Repeat Specimen NO Number of Fetuses 1 Hx Of Neural Tube Defects NOT GIVEN Cigarette smoker NO 9 Laboratory test 02/19/2019 [facility] Miscellaneous Test See Comment 10 [place] [address] [phone] Zika Screen 02/05/2019 [facility] Zika Screen Nysdoh, SEE RESULT 11 Nysdoh ([facility] [place] [place] [address] Serum BELOW [phone] Zika Screen Nysdoh, Urine SEE RESULT BELOW 12 Laboratory test finding 02/02/2019 [facility] PDF Report SEE IMAGE [id number] Serum Integrated 02/02/2019 [facility] Comment: SEE NOTE 13 Screen, Part 1 (NH) Referring Physician Name DANIKA MONCADA Referring Physician Phone ON ABOVE Referring Physician Npi [id number] Date of 1985 Collection Date 02/02/2019 Maternal Weight 137 lbs Est'd Date of Delivery 08/14/2019 EDITH Determined by LMP Mother's Ethnic Origin Number of Fetuses 1 Insulin Depend Diabetic NO Repeat Specimen NO Hx Of Neural Tube Defects NOT GIVEN Prev Down Synd NO Donor Egg NOT GIVEN Donor Age: Egg Retrieval NOT GIVEN Cigarette smoker NO Urine Culture 01/19/2019 [facility] Urine SEE RESULT 14 [place] [address] Culture BELOW Sensitivities [phone] HIV 1&2 p24 01/19/2019 [facility] HIV 4th [place] [address] Generation [phone] Lead 01/19/2019 [facility] Lead,Venous, < 1.0 g/dL 0.0-4.9 15 [place] [address] B [phone] Venous/Capillary Venous Submitting Laboratory Phone [phone] Type And Screen 01/19/2019 [facility] Patient [place] [address] [phone] Antibody Screen NEGATIVE CBC With No 01/19/2019 [facility] White Blood 8.9 10^3/uL Normal 3.5-10.8 [place] [address] Count [phone] Red Blood Count 4.06 10^6/uL Normal 3.70-4.87 Hemoglobin 12.9 g/dL Normal 12.0-16.0 Hematocrit 38 % Normal 35-47 Mean Corpuscular Volume 92 fL Normal 80-97 Mean Corpuscular Hemoglobin 32 pg High 27-31 Mean Corpuscular HGB Conc 34 g/dL Normal 31-36 Red Cell Distribution Width 13 % Normal 10-15 Platelet Count 241 10^3/uL Normal 150-450 Mean Platelet Volume 7.8 fL Normal 7.4-10.4 PNL No 01/19/2019 [facility] Rubella Screen [place] [address] [phone] Hemoglobin A1c 5.3 % Normal 4.0-5.6 17 Hepatitis B Surface Ag Nonreactive Nonreactive Syphillis Igg W/Reflex RPR Negative Negative Laboratory test 01/19/2019 [facility] PDF Report SEE IMAGE finding [id number] Sma Carrier Screen 01/19/2019 [facility] Technical Results NEGATIVE Negative 18 SMN1 2 COPIES SMN2 2 COPIES Interpretation SEE NOTE 19 Cfvantage(R) Cystic Fibrosis 01/19/2019 [facility] Ethnicity: Expanded SC CF Result NEGATIVE Negative 20 Interpretation SEE NOTE 21 Additional Information SEE NOTE 22 Mutations Analyzed SEE NOTE 23 GC/Chlamydia Dna 01/19/2019 [facility] Chlamydia [place] [address] trachomatis Esperanza [phone] Neisseria gonorrhoeae (GC) Esperanza Negative Negative Laboratory test 01/19/2019 [facility] Cytology SEE RESULT BELOW 24 [place] [address] [phone] Hemoglobin Interpretation: % Cells Volume of Maternal Hemorrhage 0.0 - 0.0045 Up to 15 ml 0.0046 - 0.0090 15 - 30 ml 0.0091 - 0.0135 30 - 45 ml 0.0136 - 0.0180 45 - 60 ml 0.0181 - 0.0225 60 - 75 ml 2 SEE RESULT BELOW Name: SHONDA ARREDONDO : [address]: Ricci Rudolph DO Acct: [id number] Unit: [id number] AGE: 33 Location: [facility] Re07/11/19 SEX: F Status: REG REF SPEC: [id number] VON: 07/11/19-[address]: Ricci Rudolph DO REQ: [id number] RECD: 07/11/19 STATUS: COMP _ SOURCE: RAJ/ANEESH/RE SPDESC: ORDERED: Grp B Strp Scrn COMMENTS: [id number] QUERIES: Is Patient Penicillin Allergic? N Is patient penicillin allergic and/or sensitivities needed? N Provider Requisition # C77#[id number]_ Procedure Result Reported Site Group B Strep Culture Screen Final 07/13/19- 0809 ML Group B Strep Screen Negative * ML - Main Lab . END OF REPORT DEPARTMENT OF PATHOLOGY, [address] [place] [address] Phi Vazquez M.D. Director [facility] # [id number] 3 [id number] SCREEN NEGATIVE FOR OPEN NTD, DOWN SYNDROME AND TRISOMY 18. 5 Reference Range: <2.50 IDD <1.90 TWINS <4.00 TWINS IDD <3.50 TRIPLETS <4.50 6 This test was performed using a kit that has not been cleared or approved by the FDA. The analytical performance characteristics of this test have been determined by [facility]. This test should not be used for [...] technique. Interpretation reviewed by: Sherley Baltazar, Ph.D., [facility]. 8 ON TEST REQ ABOVE 9 This [...] call ; For technical questions, call ext [phone]; For recalculations, fax to . For additional information, please refer to http://[email or web address]/faq/FAQ45 (This link is being provided for informational/educational purposes only.) 10 Test Result Flag Unit RefValue Controlled Substance Monitoring, U List Patient's Not Provided Current Medications ADDITIONAL INFORMATION Accuracy and completeness of declared medications on reports solely dependent on information submitted by client. Creatinine, U 23.2 mg/dL Specific Thicket 1.006 pH 5.4 Oxidants Negative REFERENCE VALUE [...] Not Detected ng/mL Cutoff: 25 Tylenol 3 Oqosdhv-0-pmyz- Not Detected ng/mL glucuronide Metabolite of codeine REFERENCE VALUE Cutoff: 100 Morphine Not Detected ng/mL Cutoff: 25 Luana Ham MS Contin; Also a minor metabolite (10%) of codeine and can be seen in low concentrations (<2,000 ng/mL) with poppy seed ingestion. Plwnxzfn-5-vomz- Not Detected ng/mL glucuronide Metabolite of morphine REFERENCE VALUE Cutoff: 100 6-monoacetylmorphine Not Detected ng/mL Cutoff: 25 Metabolite of heroin Hydrocodone Not Detected ng/mL Cutoff: 25 Lortab, Tullos, Vicodin; Also a very minor metabolite of [...] Numorphan, Opana; Also a metabolite of oxycodone. Dnnxpbuvvya-8-qvzi- Not Detected ng/mL glucuronide Metabolite of oxymorphone REFERENCE VALUE Cutoff: 100 Noroxymorphone Not Detected ng/mL Cutoff: 25 Metabolite of oxymorphone Fentanyl Not Detected ng/mL Cutoff: 2 Actiq, Duragesic, Fentora Norfentanyl Not Detected ng/mL Cutoff: 2 Metabolite of fentanyl Meperidine Not Detected ng/mL Cutoff: 25 Demerol Normeperidine Not Detected ng/mL Cutoff: 25 Metabolite of meperidine Naloxone Not Detected ng/mL Cutoff: 25 Narcan Mkhesuhq-5-bbvh- Not Detected ng/mL glucuronide Metabolite of naloxone [...] developed and its performance characteristics determined by [facility] in a manner consistent with [...] developed and its performance characteristics determined by [facility] in a manner consistent with CLIA requirements. This test has not been cleared or approved by the U.S. Food and Drug Administration. Test Performed by: [facility] [address] [place] [place] [address] Strategic Accounts Manager: Nadir Goodson M.D. Ph.D.; CLIA# [id number] 11 SEE RESULT BELOW Name: SHONDA ARREDONDO : [address]: Briseyda Lozano MD Acct: [id number] Unit: [id number] AGE: 33 Location: [facility] Re02/05/19 SEX: F Status: REG REF SPEC: [id number] VON: 02/05/[address]: Briseyda Lozano MD REQ: [id number] RECD: 02/05/195 STATUS: COMP _ SOURCE: SERUM SPDESC: ORDERED: Zika Screen, S COMMENTS: [id number] Procedure Result Reported Site Zika Screen [facility], Serum Final 02/13/19- 824 ML Zika virus RNA by real-time RT-PCR*:NOT [...] the absence of current or recent infection. [id number] collected: Negative Please see additional information about zika virus at: Fact Sheet for Patients: Understanding Results from theZika IgM Rapid Test http://[employer]/wp-content/uploads//For-patients.p df Fact Sheet for Healthcare Providers: Interpreting Zika IgM Rapid Test Results http://[employer]/wp-content/uploads//Txj-dxtchc-ugw e-workes.pdf For detailed test interpretation guidance, please visit: https://health.[place].gov/diseases/zika_virus/providers.htm CONTINUED ON NEXT PAGE DEPARTMENT OF PATHOLOGY, [address] [place] [address] Phi Vazquez M.D. Director [facility] # [id number] Patient: ARNULFOSHONDA [id number] (Continued) Specimen: [id number] Collected: 02/05/19 Received: 02/05/19 (Continued) Procedure Result Reported Site Zika Screen [facility], Serum Final (continued) 02/13/19824 Flavivirus Polyvalent Microsphere Immunofluorescence Assay (IgG+IgM+IgA)* Results suggest the absence of Zika and dengue antibodies. If recent infection is suspected collect another specimen in three weeks. Zika Polyvalent Microsphere Immunofluorescence Assay [id number] collected 02/05/19Result:Non-Reactive Dengue Polyvalent Microsphere Immunofluorescence Assay [id number] collected 02/05/19Result:Non-Reactive * The performance characteristics of this test were determined by the [facility]. It has not been cleared or approved by the U.S.Food and Drug Administration. Cross reactivity frequently occurs in serologic testing. Test Performed by: [facility] of [address] [address] * ML - [facility] . END OF REPORT DEPARTMENT OF PATHOLOGY, [address] [place] [address] Phi Vazquez M.D. Director [facility] # [id number] 12 SEE RESULT BELOW Name: SHONDA ARREDONDO : [address]: Briseyda Lozano MD Acct: [id number] Unit: [id number] AGE: 33 Location: [facility] Re02/05/19 SEX: F Status: REG REF SPEC: [id number] VON: 02/05/[address]: Briseyda Lozano MD REQ: [id number] RECD: 02/05/19 STATUS: COMP _ SOURCE: URINE [facility]: ORDERED: Zika Screen, Ur COMMENTS: [id number] Procedure Result Reported Site Zika [facility], Urine Final 02/13/19- 825 ML Zika virus RNA by real-time RT-PCR*:NOT DETECTED * The performance characteristics of this test were determined by the [facility]. It has not been cleared or approved by the U.S.Food and Drug Administration. Cross reactivity frequently occurs in serologic testing. Test Performed by: [facility] of [facility] [address] [place] [address] * ML - Main Lab . END OF REPORT DEPARTMENT OF PATHOLOGY, [address] [place] [address] Phi Vazquez M.D. Director [facility] # [id number] 13 Thank you for submitting this patients Part 1 specimen. Please submit her Part 2 specimen between 02/20/2019-04/16/2019 (15.0 and 22.9 weeks gestation) with 02/20/2019-03/05/2019 (15.0 and 16.9 weeks gestation) being optimal. When submitting Part 2, please include the following Specimen # from Part 1: [id number] This test was developed and its analytical performance characteristics have been determined by [facility]. It has not been cleared or approved by FDA. This assay has been validated pursuant to the CLIA regulations and is used for clinical purposes. For additional information, please refer to http://education.Ads Click.com/faq/FAQ91 (This link is being provided for informational/educational purposes only.) It has been observed that patients who smoke cigarettes during may have a slightly increased risk of having a false positive GUILLAUME screen for Down Syndrome or trisomy 18. If you have questions concerning this report: For clinical consultation, call ; For technical questions, call ext [phone]; For recalculations, fax to [phone]. 14 SEE RESULT BELOW Name: SHONDA ARREDONDO : [address]: Xiomara Rivera CNM Acct: [id number] Unit: [id number] AGE: 33 Location: [facility] Re01/19/19 SEX: F Status: REG REF SPEC: [id number] VON: 01/19/[address]: Xiomara Rivera CNM REQ: [id number] RECD: 01/19/19 STATUS: COMP _ SOURCE: URINE SPDESC: ORDERED: Urine Culture COMMENTS: [id number] Urine Source: Random Procedure Result Reported Site Urine Culture Final 01/20/19- 1629 ML No Growth (<1,000 CFU/mL) * ML - Main Lab . END OF REPORT DEPARTMENT OF PATHOLOGY, [address] [place] [address] Phi Vazquez M.D. Director [facility] # [id number] 15 ADDITIONAL INFORMATION Testing performed by Inductively Coupled Plasma-Mass Spectrometry (ICP-MS). This test was developed and its performance characteristics determined by [facility] in a manner consistent with CLIA requirements. This test has not been cleared or approved by the U.S. Food and Drug Administration. 16 Test Performed by: [facility] [place] [address] Strategic Accounts Manager: Nadir Goodson M.D. Ph.D.; CLIA# [id number] 17 Therapeutic target for the treatment of diabetes mellitus patients is <7% HBA1C, and in selective patients <6.0%. Please refer to [place] [employer] diabetic care guidelines for further information. 18 NEGATIVE; AT LEAST TWO COPIES OF THE SMN1 GENE DETECTED 19 This analysis identified at least two (2) copies of the SMN1 gene. This result does not rule out carrier status or a diagnosis of spinal muscular atrophy (SMA).* This testing cannot differentiate between individuals who have all copies of the SMN1 gene on one chromosome and NONE on the opposite chromosome as well as other mutations in the SMN1 gene. The risk for mutations that cause SMA other than the deletions tested depends greatly on family history and clinical presentation. Risk to be a carrier Ethnicity Detection Prior 2 SMN1 3 SMN1 rate carrier copy copy risk result result 95% 1 in 35 1 in 632 1 in 3500 Ashkenazi 90% 1 in 41 1 in 350 1 in 4000 Confucianism 93% 1 in 53 1 in 628 1 in 5000 71% 1 in 66 1 in 121 1 in 3000 Cymraes 91% 1 in 117 1 in 1061 1 in [address] SUPPLEMENTAL INFORMATION Spinal muscular atrophy (SMA) is a family of disorders that are characterized by progressive muscle weakness due to loss of anterior horn cells. A deletion of exon 7 in the SMN1 gene causes 95% of SMA. New mutations account for approximately 2% of SMA. SMN2 genes are able to produce a protein identical to that of the SMN1 gene, but at a reduced (10-20%) capacity. As a result the number of copies of SMN2 has been shown to influence the severity of the disease. This assay detects the copy number of the two common genes (SMN1 and SMN2) recommended by the [place] (ACMG) for population-based SMA carrier screening. Health care providers, please contact your local [facility]' genetic counselor or call [facility] [employer] at [email or web address] ) for assistance with the interpretation of these results. METHODOLOGY: The copy number of the SMA genes (SMN1 and SMN2) is detected by quantitative PCR. Although rare, false positive or false negative results may occur. All results should be interpreted in context of clinical findings, relevant history, and other laboratory data. Laboratory results and submitted clinical information reviewed by Shaggy Hinton, Ph.D., FACMG, [facility], [facility]. This test was developed and its analytical performance characteristics have been determined by [facility]. It has not been cleared or approved by FDA. This assay has been validated pursuant to the CLIA regulations and is used for clinical purposes. 20 NEGATIVE; NONE OF THE MUTATIONS LISTED BELOW WERE DETECTED 21 This result does not rule out the presence of a mutation or a diagnosis of cystic fibrosis disease (CF). The risk for mutations that cause CF other than the ones tested depends greatly on family history, clinical presentation, and ethnicity. Detection rates and residual risk estimates are based on a subset of 78 mutations from the panel, which includes the 23 ACMG/ACOG-recommended mutations. Exact figures are currently unavailable for all mutations on the [employer] Systems[employer](TM) Cystic Fibrosis Expanded Screen. Detection rates may be slightly higher and residual risk rates may be slightly lower than the figures in this table since the estimates are based on a subset of mutations. Racial/Ethnic Detection Carrier Carrier Group Rate, % Rate Risk Before After Testing Negative Test Result Ashkenazi Confucianism 95 05/11461 Non- 90 05/12241 Cymraes 88 1 78 [place]ra[place] 53 199 Laboratory results and submitted clinical information reviewed by Omar Robledo MD, A, FAC, CGMBS. 22 This assay detects the CF mutations listed below, including the twenty-three core mutations recommended by the [employer] (ACMG) and the [place] [employer] Ob[employer] and [employer]nec[employer] (ACOG) for population-based CF carrier screening. While the additional mutations detected in this assay are rare in the general [place] population, the scientific and medical literature indicates that these mutations are associated with CF (Simran Ermelinda, 2013, 45:1160-7) and may have increased prevalence in some ethnic groups (Clin Chem, 57:841-8). The status of the intron 9 (formerly intron 8) polyT tract is reported only when the R117H mutation is detected. The mutations are detected by multiplex-polymerase chain reaction (PCR) amplification of specific CF gene regions, followed by nucleotide sequence analysis on a massively parallel sequencing platform. Although rare, false positive or false negative results may occur. All results should be interpreted in the context of clinical findings, relevant history, and other laboratory data. Health care providers, please contact your local [facility]' genetic counselor or call at [email or web address] ([phone]) for assistance with interpretation of these results. 23 M1V (c.1A>G), CFTRdele2,3, Q39X (c.115C>T), 296+2T>A (c.164+2T>A), E60X (c.178G>T), P67L (c.200C>T), R75X (c.223C>T), G85E (c.254G>A), 394delTT (c.262delTT), G91R (c.271G>A), 405+1G>A (c.273+1G>A), 406-1G>A (c.274-1G>A), E92K (c.274G>A), E92X (c.274G>T), Q98X (c.292C>T), 444delA (c.313delA), 457TAT>G (c.325delTATinsG), D110H (c.328G>C), R117C (c.349C>T), R117H (c.350G>A), Y122X (c.366T>A), 574delA (c.442delA), 621+1G>T (c.489+1G>T), 663delT (c.531delT), G178R (c.532G>A), 711+1G>T (c.579+1G>T), 711+3A>G (c.579+3A>G), 711+5G>A (c.579+5G>A), 712-1G>T (c.580-1G>T), H199Y (c.595C>T), P205S (c.613C>T), L206W (c.617T>G), Q220X (c.658C>T), 473tcr44 (c.725jvo03), 935delA (c.803delA), 936delTA (c.805delAT), L397uzb (c.933delCTT), 1078delT (c.948delT), G330X (c.988G>T), R334W (c.1000C>T), I336K (c.1007T>A), T338I (c.1013C>T), S341P (c.1021T>C), 1154insTC (c.1022insTC), 1161delC (c.1029delC), R347P (c.1040G>C), R347H (c.1040G>A), R352Q (c.1055G>A), 1213delT (c.1081delT), 1248+1G>A (c.1116+1G>A), 1259insA (c.1127insA), 1288insTA (c.1153insAT), W401X (c.1202G>A or c.1203G>A), 1341+1G>A (c.1209+1G>A), 9181sdp6 (c.1329insAGAT), A455E (c.1364C>A), 1525-1G>A (c.1393-1G>A), S466X (c.1397C>A or c.1397C>G), L467P (c.1400T>C), 1548delG (c.1418delG), G480C (c.1438G>T), S489X (c.1466C>A), S492F (c.1475C>T), 1609delCA (c.1477delCA), Q493X (c.1477C>T), D897tzh (c.1519delATC), T934wix (c.1521delCTT), 1677delTA (c.1545delTA), V520F (c.1558G>T), C524X (c.1572C>A), Q525X (c.1573C>T), 1717-1G>A (c.1585-1G>A), 1717-8G>A (c.1585-8G>A), G542X (c.1624G>T), S549R (c.1645A>C or c.1647T>G), S549N (c.1646G>A), G551D (c.1652G>A), Q552X (c.1654C>T), R553X (c.1657C>T), A559T (c.1675G>A), R560K (c.1679G>A), R560T (c.1679G>C), 1811+1.6kbA>G (c.1679+1.6kbA>G), 1812-1G>A (c.1680-1G>A), P574H (c.1721C>A), D579G (c.1736A>G), E585X (c.1753G>T), 1898+1G>T (c.1766+1G>T), 1898+1G>A (c.1766+1G>A), 1898+3A>G (c.1766+3A>G), 1898+5G>T (c.1766+5G>T), 2043delG (c.1911delG), 1573rcw2>A (c.3667qet7oshE), 5838zkb87boy2 (c.2922nfl02ahzNVKCW), 2108delA (c.1975delA), 2143delT (c.2012delT), 2183AA>G (c.2051delAAinsG), 2184insA (c.2052insA), 2184delA (c.2052delA), R709X (c.2125C>T), K710X (c.2128A>T), 2307insA (c.2175insA), L732X (c.2195T>G), 2347delG (c.2215delG), R764X (c.2290C>T), 2585delT (c.2453delT), E822X (c.2464G>T), 2622+1G>A (c.2490+1G>A), E831X (c.2491G>T), W846X (c.2537G>A), R851X (c.2551C>T), 2711delT (c.2583delT), 2789+5G>A (c.2657+5G>A), Q890X (c.2668C>T), 2869insG (c.2737insG), L927P (c.2780T>C), S945L (c.2834C>T), 3007delG (c.2875delG), G970R (c.2908G>C), 3120G>A (c.2988G>A), 3120+1G>A (c.2988+1G>A), 3121-1G>A (c.2989-1G>A), 3171delC (c.3039delC), 1201uhk5 (c.3067delATAGTG), 3272-26A>G (c.3140-26A>G), Y1162Y (c.3194T>C), M7447Z (c.3196C>T), B9380A (c.3197G>A), B2046K (c.3230T>C), S6181L (c.3266G>A), H6745L (c.3276C>A or c.3276C>G), J5273H (c.3278T>C), F6998B (c.3302T>A), R9639H (c.3310G>T), K9855S (c.3382A>T), O4131Q (c.3435G>A), B1037S (c.3472C>T), F3315T (c.3484C>T), 3659delC (c.3528delC), 0558mwq8 (c.3535delACCA), B5958P (c.3587C>G), A3353C (c.3611G>A or c.3612G>A), 3791delC (c.3659delC), 3821delT (c.3691delT), I4701J (c.3700A>G), H5270N (c.3712C>T), 3849+10kbC>T (c.3717+80329Z>T), A6099T (c.3731G>A), 3876delA (c.3744delA), Q0525O (c.3752G>A), V4564C (c.3764C>A), 3905insT (c.3773insT), Q2031T (c.3846G>A), B7236L (c.3848G>T), 4005+1G>A (c.3873+1G>A), 4016insT (c.3884insT), B7545L (c.3909C>G), O3935E (c.3937C>T), CRBJjllc20,23, 4209TGTT>AA (c.4077delTGTTinsAA), 4382delA (c.4251delA) This test was developed and its analytical performance characteristics have been determined by [facility] [facility]. It has not been cleared or approved by FDA. This assay has been validated pursuant to the CLIA regulations and is used for clinical purposes. For additional information, please refer to http://education.FOB.com/faq/UEU328 (This link is being provided for information/educational purposes only.) 24 SEE RESULT BELOW Name: ARNULFOSHONDA : [address]: Xiomara Rivera CNM Acct: [id number] Unit: [id number] AGE: 33 Location: [facility] Re01/19/19 SEX: F Status: REG REF SPEC: [id number] VON: 01/19/19-[address] [facility] [address]: Xiomara Rivera CNM REQ: [id number] RECD: 01/22/19 STATUS: SOUT _ ORDERED: TP IMAGE ANALYS, HPV/Thin Prep COMMENTS: [id number] FINAL DIAGNOSIS Negative for Intraepithelial lesion or Malignancy HPV RESULTS Date Time Test Result Flag (u) Normal Range 01/19/19 1457 HPV ESPERANZA Negative Negative The high-risk HPV types detected by the assay include: 16, 18, 31, 33, 35, 39, 45, 51, 52, 56, 58, 59, 66, and 68. SPECIMEN(S) RECEIVED A. Ectocervical/Endocervical CYTOLOGY ADEQUACY Specimen Adequacy: Satisfactory of evaluation Transformation zone component identified CYTOLOGY PATIENT INFORMATION Patient Information: HPV: High risk HPV RNA testing regardless of pap results. Actual Specimen Date: 01/19/19 Last Menstrual Date: 11/07/18 Date of Last Specimen: 04/13/16 ?: Y Post Menopausal?: N Hysterectomy?: N CONTINUED ON NEXT PAGE DEPARTMENT OF PATHOLOGY, [address] [place] [address] Phi Vazquez M.D. Director [facility] # [id number] Previous Abnormal Pap Smears?:N Signed by and Reported on: NIGEL Hill (ASCP) 1432 This Pap test was evaluated with the assistance of the wiMANPrep Test Imaging System. Due to cytologic findings at the woolen tester microscope, comprehensive manual rescreening by a Paediatric Physiotherapist may be required. The Pap Smear is a screening test designed to aid in the detection of premalignant and malignant conditions of the uterine cervix. It is not a diagnostic procedure and should not be used as the sole means of detecting cervical cancer. Both false- positive and false- negative reports do occur. Depending on your risk status, a Pap smear should be obtained and evaluated every 1-3 years. END OF REPORT DEPARTMENT OF PATHOLOGY, [address] [place] [address] Phi Vazquez M.D. Director [facility] # [id number] Procedures Date Code Description Status 07/20/2019 27422 Biophysical Profile Without Non Stress Test Completed 07/05/2019 24188 Biophysical Profile Without Non Stress Test Completed 07/05/2019 23015 Echography Uterus Follow-Up Or Repeat Completed 06/28/2019 30436 Biophysical Profile W/ NST Completed 06/28/2019 03007 Non-Stress Test Completed 06/22/2019 26490 Biophysical Profile Without Non Stress Test Completed 06/22/2019 97854 Echography Uterus Limited Completed 06/08/2019 37847 Biophysical Profile Without Non Stress Test Completed 06/08/2019 09928 Echography Uterus Follow-Up Or Repeat Completed 03/26/2019 00115 Echography Uterus Complete Completed 01/19/2019 33265 OB Ultrasound First Trimester Completed Medical Devices Description No Information Available Encounters Type Date Location Provider Dx Diagnosis Office Visit 07/20/2019 [facility] Office Abida Perez, O34.211 Matern care for low 3:00p MD transverse scar from prev del Assessments Date Code Description Provider 07/20/2019 O34.211 Maternal care for low transverse [...] or without Ricci Rudolph JR, DO hemorrhage, second trimester 06/08/2019 O44.03 Complete placenta previa NOS or without TOSHIA CharlesM hemorrhage, third trimester 06/08/2019 O44.02 Complete placenta [...] Complete placenta previa NOS or without Danika Monacda CNM hemorrhage, second trimester 03/26/2019 Z36.9 Encounter [...] normal Danika Moncada CNM , first trimester 01/19/2019 O26.91 related conditions, unspecified, Briseyda Lozano MD first trimester 01/19/2019 Z34.81 Encounter for supervision of other normal Xiomara HaileymarcelinoLUIS , first trimester 01/19/2019 O26.91 related conditions, unspecified, Ultrasounds first trimester Plan of Treatment Future Appointment(s):08/28/2019 11:00 am - Abida Perez MD at [facility] 2:00 pm - Danika Moncada CNM at [facility]07/25/2019 7:45 am - Abida Perez MD at [place] [id number]/20/2019 - Abida Perez MDO34.211 Maternal care for [...]
--- OUTSIDE RECORDS SUMMARY | 2019-07-25 06:05 | XMS REPORT | Continuity of Care Document ---
:1985 External Reference #:[id number] Author Name Ultrasounds (transmitted by agent of provider Makayla Serrano) Address [address] [place] [address] Problems Active Problems Provider Date Multigravida Danika Moncada CNM Onset: 03/26/2019 Placenta previa Danika Moncada CNM Onset: 03/26/2019 Social History Type Date Description Comments Sex Unknown Cigarette Use Does Not Smoke Cigarettes ETOH Use Alcohol Use Prior To 1 Glass of Wine Per Day Tobacco Use Start: Unknown Patient has never smoked Recreational Drug Use Does Not Use Drugs Exercise Type/Frequency Exercises regularly Seat Belt/Car Seat Always uses seat belt EDITH: 11/05/2016 Estimated Date of Based on LMP Delivery Allergies, Adverse Reactions, Alerts Description No Known Drug Allergies Medications Active Medications SIG Qnty Indications Ordering Provider Date Breast Pump electric breast 1units Z39.1 Maryanne Pappas, 04/27/2019 Misc pump for lactating CNM mother Vitamins Unknown Immunizations CPT Code Status Date Vaccine Lot # [id number] Given 06/22/2019 Tetnus, Diptheria Toxoids And Acellular Pertussis, [id number] PT > 7Yrs Old [address] Given 08/10/2016 Tetnus, Diptheria Toxoids And Acellular Pertussis, [id number] PT > 7Yrs Old Vital Signs Date Vital Result Comment 01/19/2019 1:12pm BP Systolic 112 mmHg BP Diastolic 68 mmHg Height 65.50 inches 5'5.50" Weight 137.00 lb BMI (Body Mass Index) 22.4 kg/m2 Last Menstrual Period [id number] 2 Parity 1 12/15/2016 10:50am BP Systolic 108 mmHg BP Diastolic 68 mmHg Height 65.50 inches 5'5.50" Weight 152.00 lb BMI (Body Mass Index) 24.9 kg/m2 Last Menstrual Period 7644818 1 Parity 1 Results Test Acquired Date Facility Test Result H/L Range Note Laboratory test 06/01/2019 [facility] Glucose 1 HR 98 mg/dL Normal 70-160 1 [place] [address] Post Prandial [phone] CBC With No 06/01/2019 [facility] White Blood 10.0 Normal 3.5- 10.8 [place] [address] Count 10^3/uL [phone] Red Blood Count 3.61 10^6/uL Low 3.70-4.87 Hemoglobin 11.4 g/dL Low 12.0-16.0 Hematocrit 34 % Low 35-47 Mean Corpuscular Volume 93 fL Normal 80-97 Mean Corpuscular Hemoglobin 32 pg High 27-31 Mean Corpuscular HGB Conc 34 g/dL Normal 31-36 Red Cell Distribution Width 13 % Normal 10-15 Platelet Count 191 10^3/uL Normal 150-450 Mean Platelet Volume 8.0 fL Normal 7.4-10.4 Serum Integrated Screen, Part 03/26/2019 [facility] Interpretation: SEE NOTE 2 2([place]) Risk for Ontd <1:5000 Age Risk Down Syndrome 1:480 GUILLAUME Down Syndrome Risk <1:5000 <1:270 GUILLAUME Trisomy 18 Risk <1:5000 <1:100 Calc'd Gestational Age 19.9 Afp, Serum 52.4 ng/mL Afp MoM 0.90 3 hCG, Serum 21.3 IU/mL hCG MoM 1.02 Estriol, Free 1.73 ng/mL Estriol MoM 0.95 Inhibin A, Dimeric 151 pg/mL Inhibin A MoM 0.78 Elise-A 99503.5 ng/mL 4 Elise-A MoM 14.50 5 Referring Physician Name CHARLOTTE Referring Physician Phone ON TEST REQ ABOV <SEE NOTE> 6 Referring Physician Npi [id number] Specimen # from Part 1 [id number] Date of 1985 Collection Date 03/26/2019 Maternal Weight 137 lbs Est'd Date of Delivery 08/14/2019 Mother's Ethnic Origin Insulin Depend Diabetic NO Repeat Specimen NO Number of Fetuses 1 Hx Of Neural Tube Defects NOT GIVEN Cigarette smoker NO 7 Laboratory test 03/26/2019 [facility] Enhanced PDF Report SEE IMAGE finding [id number] Laboratory test 02/19/2019 [facility] Miscellaneous Test See Comment 8 [place] [address] [phone] Zika Screen Nysdoh 02/05/2019 [facility] Zika Screen Nysdoh, SEE RESULT 9 ([facility] [place] [place] [address] Serum BELOW [phone] Zika Screen Nysdoh, Urine SEE RESULT BELOW 10 Laboratory test finding 02/02/2019 [facility] Enhanced PDF Report SEE IMAGE [id number] Serum Integrated 02/02/2019 [facility] Comment: SEE NOTE 11 Screen, Part 1 ([place]) Referring Physician Name DANIKA MONCADA Referring Physician Phone ON ABOVE Referring Physician Npi [id number] Date of 1985 Collection Date 02/02/2019 Maternal Weight 137 lbs Est'd Date of Delivery 08/14/2019 EDITH Determined by LMP Mother's Ethnic Origin Number of Fetuses 1 Insulin Depend Diabetic NO Repeat Specimen NO Hx Of Neural Tube Defects NOT GIVEN Prev Down Synd NO Donor Egg NOT GIVEN Donor Age: Egg Retrieval NOT GIVEN Cigarette smoker NO Urine Culture 01/19/2019 [facility] Urine SEE RESULT 12 [place] [address] Culture BELOW Sensitivities [phone] HIV 1&2 p24 01/19/2019 [facility] HIV 4th [place] [address] Generation [phone] Lead 01/19/2019 [facility] Lead,Venous, < 1.0 g/dL 0.0-4.9 13 [place] [address] B [phone] Venous/Capillary Venous Submitting Laboratory Phone [phone] Type And Screen 01/19/2019 [facility] Patient [place] [address] [phone] Antibody Screen NEGATIVE CBC With No 01/19/2019 [facility] White Blood 8.9 10^3/uL Normal 3.5-10.8 [place] [address] Count [phone] Red Blood Count 4.06 10^6/uL Normal 3.70-4.87 Hemoglobin 12.9 g/dL Normal 12.0-16.0 Hematocrit 38 % Normal 35-47 Mean Corpuscular Volume 92 fL Normal 80-97 Mean Corpuscular Hemoglobin 32 pg High 27-31 Mean Corpuscular HGB Conc 34 g/dL Normal 31-36 Red Cell Distribution Width 13 % Normal 10-15 Platelet Count 241 10^3/uL Normal 150-450 Mean Platelet Volume 7.8 fL Normal 7.4-10.4 PNL No 01/19/2019 [facility] Rubella Screen [place] [address] [phone] Hemoglobin A1c 5.3 % Normal 4.0-5.6 15 Hepatitis B Surface Ag Nonreactive Nonreactive Syphillis Igg W/Reflex RPR Negative Negative Laboratory test 01/19/2019 [facility] Enhanced PDF Report SEE IMAGE finding [id number] Sma Carrier Screen 01/19/2019 [facility] Technical Results NEGATIVE Negative 16 SMN1 2 COPIES SMN2 2 COPIES Interpretation SEE NOTE 17 Cfvantage(R) Cystic Fibrosis 01/19/2019 [facility] Ethnicity: Expanded SC CF Result NEGATIVE Negative 18 Interpretation SEE NOTE 19 Additional Information SEE NOTE 20 Mutations Analyzed SEE NOTE 21 GC/Chlamydia Dna 01/19/2019 [facility] Chlamydia [place] [address] trachomatis Esperanza [phone] Neisseria gonorrhoeae (GC) Esperanza Negative Negative Laboratory test 01/19/2019 [facility] Cytology SEE RESULT BELOW [address] [place] [address] [phone] 1 [id number] SCREEN NEGATIVE FOR OPEN NTD, DOWN SYNDROME AND TRISOMY 18. 3 Reference Range: <2.50 IDD <1.90 TWINS <4.00 TWINS IDD <3.50 TRIPLETS <4.50 4 This test was performed using a kit that has not been cleared or approved by the FDA. The analytical performance characteristics of this test have been determined by [employer] [facility]. This test should not be used for diagnosis without confirmation by other medically established means. 5 The Serum Integrated Screen combines ELISE-A in [...] technique. Interpretation reviewed by: Sherley Baltazar, Ph.D., [facility]. 6 ON TEST REQ ABOVE 7 This is a screening test, not a [...] call ; For technical questions, call ext [phone]; For recalculations, fax to . For additional information, please refer to http://education.eBioscience/faq/FAQ99 (This link is being provided for informational/educational purposes only.) 8 Test Result Flag Unit RefValue Controlled Substance Monitoring, U List Patient's Not Provided Current Medications ADDITIONAL INFORMATION Accuracy and completeness of declared medications on reports solely dependent on information submitted by client. Creatinine, U 23.2 mg/dL Specific [place] 1.006 pH 5.4 Oxidants Negative REFERENCE VALUE [...] Not Detected ng/mL Cutoff: 25 Tylenol 3 Dksugmw-4-vlhf- Not Detected ng/mL glucuronide Metabolite of codeine REFERENCE VALUE Cutoff: 100 Morphine Not Detected ng/mL Cutoff: 25 Luana Ham MS Contin; Also a minor metabolite (10%) of codeine and can be seen in low concentrations (<2,000 ng/mL) with poppy seed ingestion. Sqltcopn-2-drxe- Not Detected ng/mL glucuronide Metabolite of morphine REFERENCE VALUE Cutoff: 100 6-monoacetylmorphine Not Detected ng/mL Cutoff: 25 Metabolite of heroin Hydrocodone Not Detected ng/mL Cutoff: 25 Lortab, [place], Vicodin; Also a very minor metabolite of [...] Numorphan, Opana; Also a metabolite of oxycodone. Igsxgdoidac-7-wsao- Not Detected ng/mL glucuronide Metabolite of oxymorphone REFERENCE VALUE Cutoff: 100 Noroxymorphone Not Detected ng/mL Cutoff: 25 Metabolite of oxymorphone Fentanyl Not Detected ng/mL Cutoff: 2 Actiq, Duragesic, Fentora Norfentanyl Not Detected ng/mL Cutoff: 2 Metabolite of fentanyl Meperidine Not Detected ng/mL Cutoff: 25 Demerol Normeperidine Not Detected ng/mL Cutoff: 25 Metabolite of meperidine Naloxone Not Detected ng/mL Cutoff: 25 Narcan Bphikhny-0-iitg- Not Detected ng/mL glucuronide Metabolite of naloxone [...] developed and its performance characteristics determined by [facility] in a manner consistent with CLIA requirements. [...] developed and its performance characteristics determined by [facility] in a manner consistent with CLIA requirements. This test has not been cleared or approved by the U.S. Food and Drug Administration. Test Performed by: [facility] [address] [place] [address] Workers Compensation Legal Secretary: Nadir Goodson M.D. Ph.D.; CLIA# [id number] 9 SEE RESULT BELOW Name: SHONDA ARREDONDO : [address]: Briseyda Lozano MD Acct: [id number] Unit: [id number] AGE: 33 Location: [facility] Re02/05/19 SEX: F Status: REG REF SPEC: [id number] VON: 02/05/[address]: Briseyda Lozano MD REQ: [id number] RECD: 02/05/19 STATUS: COMP _ SOURCE: SERUM SPDESC: ORDERED: Jeffry Flaherty COMMENTS: [id number] Procedure Result Reported Site Natan Kim Final 02/13/19- 0825 ML Zika virus RNA [...] the absence of current or recent infection. [id number] collected: Negative Please see additional information about zika virus at: Fact Sheet for Patients: Understanding Results from theZika IgM Rapid Test http://Medlanes/wp-content/uploads//For-patients.p df Fact Sheet for Healthcare Providers: Interpreting Zika IgM Rapid Test Results http://Medlanes/wp-content/uploads//Dvn-rjxwzf-zxv e-workes.pdf For detailed test interpretation guidance, please visit: https://health.[place].gov/diseases/zika_virus/providers.htm CONTINUED ON NEXT PAGE DEPARTMENT OF PATHOLOGY, [address] [place] [address] Phi Vazquez M.D. Director [facility] # [id number] Patient: SHONDA ARREDONDO [id number] (Continued) Specimen: [id number] Collected: 02/05/19 Received: 02/05/19 (Continued) Procedure Result Reported Site [facility]ika Screen [facility] Final (continued) 02/13/19824 Flavivirus Polyvalent Microsphere Immunofluorescence Assay (IgG+IgM+IgA)* Results suggest the absence of Zika and dengue antibodies. If recent infection is suspected collect another specimen in three weeks. Zika Polyvalent Microsphere Immunofluorescence Assay [id number] collected 02/05/19Result:Non-Reactive Dengue Polyvalent Microsphere Immunofluorescence Assay [id number] collected 02/05/19Result:Non-Reactive * The performance characteristics of this test were determined by the [facility]. It has not been cleared or approved by the U.S.Food and Drug Administration. Cross reactivity frequently occurs in serologic testing. Test Performed by: [facility] [address] [place] [address] * ML - Main Lab . END OF REPORT DEPARTMENT OF PATHOLOGY, [address] [place] [address] Phi Vazquez M.D. Director [facility] # [id number] 10 SEE RESULT BELOW Name: ARNULFOSHONDA : [address]: Briseyda Lozano MD Acct: [id number] Unit: [id number] AGE: 33 Location: [facility] Re02/05/19 SEX: F Status: REG REF SPEC: [id number] VON: 02/05/19 [facility] DR: Briseyda Lozano MD REQ: [id number] RECD: 02/05/19 STATUS: COMP _ SOURCE: URINE SPDESC: ORDERED: Zika Screen, Ur COMMENTS: [id number] Procedure Result Reported Site Zika Screen FRANCIS, Urine Final 02/13/19- 0826 ML Zika virus RNA by real-time RT-PCR*:NOT DETECTED * The performance characteristics of this test were determined by the [facility]. It has not been cleared or approved by the U.S.Food and Drug Administration. Cross reactivity frequently occurs in serologic testing. Test Performed by: [facility] [address] [place] [address] * ML - Main Lab . END OF REPORT DEPARTMENT OF PATHOLOGY, [address] [place] [address] Phi Vazquez M.D. Director [facility] # [id number] 11 Thank you for submitting this patients Part 1 specimen. Please submit her Part 2 specimen between 02/20/2019-04/16/2019 (15.0 and 22.9 weeks gestation) with 02/20/2019-03/05/2019 (15.0 and 16.9 weeks gestation) being optimal. When submitting Part 2, please include the following Specimen # from Part 1: [id number] This test was developed and its analytical performance characteristics have been determined by [employer] [facility]. It has not been cleared or approved by FDA. This assay has been validated pursuant to the CLIA regulations and is used for clinical purposes. For additional information, please refer to http://education.Prevoty.Dragon Inside/faq/FAQ91 (This link is being provided for informational/educational purposes only.) It has been observed that patients who smoke cigarettes during may have a slightly increased risk of having a false positive GUILLAUME screen for Down Syndrome or trisomy 18. If you have questions concerning this report: For clinical consultation, call ; For technical questions, call ext [phone]; For recalculations, fax to [phone]. 12 SEE RESULT BELOW Name: ARNULFOSHONDA : [address]: Xiomara Rivera CNM Acct: [id number] Unit: [id number] AGE: 33 Location: [facility] Re01/19/19 SEX: F Status: REG REF SPEC: [id number] VON: 01/19/[address]: Xoimara Rivera CNM REQ: [id number] RECD: 01/19/19 STATUS: COMP _ SOURCE: URINE SPDESC: ORDERED: Urine Culture COMMENTS: [id number] Urine Source: Random Procedure Result Reported Site Urine Culture Final 01/20/19- 1629 ML No Growth (<1,000 CFU/mL) * ML - Main Lab . END OF REPORT DEPARTMENT OF PATHOLOGY, [address] [place] [address] Phi Vazquez M.D. Director [facility] # [id number] 13 ADDITIONAL INFORMATION Testing performed by Inductively Coupled Plasma-Mass Spectrometry (ICP-MS). This test was developed and its performance characteristics determined by [facility] in a manner consistent with CLIA requirements. This test has not been cleared or approved by the U.S. Food and Drug Administration. 14 Test Performed by: [facility] - [address] [address] Workers Compensation Legal Secretary: Nadir Goodson M.D. Ph.D.; CLIA# [id number] 15 Therapeutic target for the treatment of diabetes mellitus patients is <7% HBA1C, and in selective patients <6.0%. Please refer to [place] [employer] diabetic care guidelines for further information. 16 NEGATIVE; AT LEAST TWO COPIES OF THE SMN1 GENE DETECTED 17 This analysis identified at least two (2) [...] 41 1 in 350 1 in 4000 Quaker 93% 1 in 53 1 in 628 1 in 5000 71% 1 in 66 1 in 121 1 in 3000 Ethiopian 91% 1 in 117 1 in 1061 1 in 17532 SUPPLEMENTAL INFORMATION Spinal muscular atrophy (SMA) is [...] genes (SMN1 and SMN2) recommended by the [employer] (ACMG) for population-based SMA carrier screening. Health care providers, please contact your local [employer] genetic counselor or call [facility] at [phone] ([phone]) for assistance with the interpretation of these results. METHODOLOGY: The copy number of the SMA genes (SMN1 and SMN2) is detected by quantitative PCR. Although rare, false positive or false negative results may occur. All results should be interpreted in context of clinical findings, relevant history, and other laboratory data. Laboratory results and submitted clinical information reviewed by Shaggy Hinton, Ph.D., FACMG, HCLD, MB. This test was developed and its analytical performance characteristics have been determined by [employer] [facility]. It has not been cleared or approved by FDA. This assay has been validated pursuant to the CLIA regulations and is used for clinical purposes. 18 NEGATIVE; NONE OF THE MUTATIONS LISTED BELOW WERE DETECTED 19 This result does not rule out the [...] currently unavailable for all mutations on the [employer]() Cystic Fibrosis Expanded Screen. Detection rates may be slightly higher and residual risk rates may be slightly lower than the figures in this table since the estimates are based on a subset of mutations. Racial/Ethnic Detection Carrier Carrier Group Rate, % Rate Risk Before After Testing Negative Test Result Ashkenazi Quaker 95 05/11 1 Non- 90 05/12 Ethiopian 88 78 Ethiopian 53 199 Laboratory results and submitted clinical information reviewed by Omar Robledo MD, A, FAC, CGMBS. 20 This assay detects the CF mutations listed below, including the twenty-three core mutations recommended by the [employer] [employer] (ACMG) and the [place] [employer] Obstetricians and Gynecologists (ACOG) for [...] Health care providers, please contact your local [employer] genetic counselor or call at [employer] ([phone]) for assistance with interpretation of these results. 21 M1V (c.1A>G), CFTRdele2,3, Q39X (c.115C>T), 296+2T>A (c.164+2T>A), [...] (c.595C>T), P205S (c.613C>T), L206W (c.617T>G), Q220X (c.658C>T), 745nkc60 (c.310bjz68), 935delA (c.803delA), 936delTA (c.805delAT), U807alb (c.933delCTT), 1078delT (c.948delT), G330X (c.988G>T), R334W (c.1000C>T), I336K (c.1007T>A), T338I (c.1013C>T), S341P (c.1021T>C), 1154insTC (c.1022insTC), 1161delC (c.1029delC), R347P (c.1040G>C), R347H (c.1040G>A), R352Q (c.1055G>A), 1213delT (c.1081delT), 1248+1G>A (c.1116+1G>A), 1259insA (c.1127insA), 1288insTA (c.1153insAT), W401X (c.1202G>A or c.1203G>A), 1341+1G>A (c.1209+1G>A), 6700mgv3 (c.1329insAGAT), A455E (c.1364C>A), 1525-1G>A (c.1393-1G>A), S466X (c.1397C>A or c.1397C>G), L467P (c.1400T>C), 1548delG (c.1418delG), G480C (c.1438G>T), S489X (c.1466C>A), S492F (c.1475C>T), 1609delCA (c.1477delCA), Q493X (c.1477C>T), D302oir (c.1519delATC), P596rzz (c.1521delCTT), 1677delTA (c.1545delTA), V520F (c.1558G>T), C524X (c.1572C>A), Q525X (c.1573C>T), 1717-1G>A (c.1585-1G>A), 1717-8G>A (c.1585-8G>A), G542X (c.1624G>T), S549R (c.1645A>C or c.1647T>G), S549N (c.1646G>A), G551D (c.1652G>A), Q552X (c.1654C>T), R553X (c.1657C>T), A559T (c.1675G>A), R560K (c.1679G>A), R560T (c.1679G>C), 1811+1.6kbA>G (c.1679+1.6kbA>G), 1812-1G>A (c.1680-1G>A), P574H (c.1721C>A), D579G (c.1736A>G), E585X (c.1753G>T), 1898+1G>T (c.1766+1G>T), 1898+1G>A (c.1766+1G>A), 1898+3A>G (c.1766+3A>G), 1898+5G>T (c.1766+5G>T), 2043delG (c.1911delG), 5814tfy5>A (c.8067rqh0jscA), 2101gfz02erz7 (c.9719awa18aqsLTMYW), 2108delA (c.1976delA), 2143delT (c.2011delT), 2183AA>G (c.2051delAAinsG), 2184insA (c.2052insA), 2184delA (c.2052delA), R709X (c.2125C>T), K710X (c.2128A>T), 2307insA (c.2175insA), L732X (c.2195T>G), 2347delG (c.2215delG), R764X (c.2290C>T), 2585delT (c.2453delT), E822X (c.2464G>T), 2622+1G>A (c.2490+1G>A), E831X (c.2491G>T), W846X (c.2537G>A), R851X (c.2551C>T), 2711delT (c.2583delT), 2789+5G>A (c.2657+5G>A), Q890X (c.2668C>T), 2869insG (c.2737insG), L927P (c.2780T>C), S945L (c.2834C>T), 3007delG (c.2875delG), G970R (c.2908G>C), 3120G>A (c.2988G>A), 3120+1G>A (c.2988+1G>A), 3121-1G>A (c.2989-1G>A), 3171delC (c.3039delC), 6869msn4 (c.3067delATAGTG), 3272-26A>G (c.3140-26A>G), K0492Q (c.3194T>C), M8316T (c.3196C>T), A1259J (c.3197G>A), O3534V (c.3230T>C), E6197R (c.3266G>A), L9280Y (c.3276C>A or c.3276C>G), R9125P (c.3278T>C), L8217O (c.3302T>A), J8441M (c.3310G>T), Q3892Q (c.3382A>T), P9143W (c.3435G>A), E1585J (c.3472C>T), L4373W (c.3484C>T), 3659delC (c.3528delC), 6195onh4 (c.3535delACCA), E8449M (c.3587C>G), S2333L (c.3611G>A or c.3612G>A), 3791delC (c.3659delC), 3821delT (c.3691delT), E8363I (c.3700A>G), E0183F (c.3712C>T), 3849+10kbC>T (c.3717+00696L>T), R1039O (c.3731G>A), 3876delA (c.3744delA), C8974F (c.3752G>A), K6482X (c.3764C>A), 3905insT (c.3773insT), U6403E (c.3846G>A), R9833C (c.3848G>T), 4005+1G>A (c.3873+1G>A), 4016insT (c.3884insT), T7267I (c.3909C>G), F6229P (c.3937C>T), DMVEecsl02,23, 4209TGTT>AA (c.4077delTGTTinsAA), 4382delA (c.4251delA) This test was developed and its analytical performance characteristics have been determined by [employer] [facility]. It has not been cleared or approved by FDA. This assay has been validated pursuant to the CLIA regulations and is used for clinical purposes. For additional information, please refer to http://education.eBioscience/faq/MSU472 (This link is being provided for information/educational purposes only.) 22 SEE RESULT BELOW Name: SHONDA ARREDONDO : [address]: Xiomara Rivera CNM Acct: [id number] Unit: [id number] AGE: 33 Location: [facility] Re01/19/19 SEX: F Status: REG REF SPEC: [id number] VON: 01/19/19-[address]: Xiomara Rivera CNM REQ: [id number] RECD: 01/22/19 STATUS: SOUT _ ORDERED: TP IMAGE ANALYS, HPV/Thin Prep COMMENTS: [id number] FINAL DIAGNOSIS Negative for Intraepithelial lesion or [...] CONTINUED ON NEXT PAGE DEPARTMENT OF PATHOLOGY, [address] [place] [address] Phi Vazquez M.D. Director [facility] # [id number] Previous Abnormal Pap Smears?:N Signed by and Reported on: NIGEL Hill (ASCP) 9612 This Pap test was evaluated with the assistance of the [employer] Test Imaging System. Due to cytologic findings at the talent rep microscope, comprehensive manual rescreening by a Clinical Evaluator may be required. The Pap Smear is [...] years. END OF REPORT DEPARTMENT OF PATHOLOGY, [address] [place] [address] Phi Vazquez M.D. Director [facility] # [id number] Procedures Date Code Description Status 06/28/2019 88233 Biophysical Profile W/ NST Completed 06/22/2019 05233 Biophysical Profile Without Non Stress Test Completed 06/22/2019 60334 Echography Uterus Limited Completed 06/08/2019 23153 Biophysical Profile Without Non Stress Test Completed 06/08/2019 98502 Echography Uterus Follow-Up Or Repeat Completed 03/26/2019 27596 Echography Uterus Complete Completed 01/19/2019 99158 OB Ultrasound First Trimester Completed Medical Devices Description No Information Available Encounters Description No Information Available Assessments Date Code Description Provider 06/28/2019 O44.13 Complete placenta previa with hemorrhage, [...] O44.02 Complete placenta previa NOS or without Ricciiesha Rudolph JR, DO hemorrhage, second trimester 06/08/2019 O44.03 Complete placenta previa NOS or without Xiomara Rivera, CNM hemorrhage, third trimester 06/08/2019 O44.02 Complete placenta previa NOS or without Ultrasounds hemorrhage, second trimester 06/01/2019 Z36.9 Encounter for screening, Mary Ann Rios MD unspecified 06/01/2019 Z36.9 Encounter for screening, Laboratory unspecified 04/23/2019 O44.02 Complete placenta previa NOS or without Danika Eduardocarald, CNM hemorrhage, second trimester 03/26/2019 Z36.9 Encounter for screening, Mary Ann Rios MD unspecified 03/26/2019 Z36.3 Encounter for screening for Briseyda Lozano MD malformations 03/26/2019 Z36.3 Encounter for screening for Ultrasounds malformations 03/26/2019 O44.02 Complete placenta previa NOS or without Danika Maccarald, CNM hemorrhage, second trimester 03/26/2019 Z36.9 Encounter for screening, Laboratory unspecified 02/19/2019 Z34.82 Encounter for supervision of other normal Maryanne Pappas, CNM , second trimester 02/05/2019 Z36.9 Encounter for screening, Briseyda Lozano MD unspecified 02/05/2019 Z36.9 Encounter for screening, Laboratory unspecified 02/02/2019 Z36.9 Encounter for screening, Briseyda Lozano MD unspecified 02/02/2019 Z36.9 Encounter for screening, Laboratory unspecified 02/02/2019 Z34.81 Encounter for supervision of other normal Danika Clarkmariselanaomi , CNM , first trimester 01/19/2019 O26.91 related conditions, unspecified, Briseyda Lozano MD first trimester 01/19/2019 Z34.81 Encounter for supervision of other normal Xiomaraihsan Rivera, CNM , first trimester 01/19/2019 O26.91 related conditions, unspecified, Ultrasounds first trimester Plan of Treatment Future Appointment(s):07/10/2019 10:45 am - Abida Perez MD at [facility] 9:15 am - Ultrasounds at [facility]07/18/2019 10:00 am - Abida Perez MD at [facility]07/05/2019 10:15 am - Mary Ann Rios MD at [facility] 9:45 am - Ultrasounds at [facility] Functional Status Description No Information Available Mental Status Description No Information Available Referrals Description No Information Available
--- OUTSIDE RECORDS SUMMARY | 2019-07-25 06:05 | XMS REPORT | Continuity of Care Document ---
:1985 External Reference #:[id number] Author Name Mary Ann Rios MD Address [address] [place] [address] Problems Active Problems Provider Date Multigravida Danika [...] Breast Pump electric breast 1units Z39.1 Maryanne Pradoes, 04/27/2019 Misc pump for lactating CNM mother Vitamins Unknown Immunizations CPT Code Status Date Vaccine Lot # [id number] Given 06/22/2019 Tetnus, Diptheria Toxoids And Acellular Pertussis, [id number] PT > 7Yrs Old [id number] Given 08/10/2016 Tetnus, Diptheria Toxoids And Acellular Pertussis, [id number] PT > 7Yrs Old Vital Signs Date Vital Result Comment 01/19/2019 1:12pm BP Systolic 112 mmHg BP Diastolic 68 mmHg Height 65.50 inches 5'5.50" Weight 137.00 lb BMI (Body Mass Index) 22.4 kg/m2 Last Menstrual Period [id number] 2 Parity 1 12/15/2016 10:50am BP Systolic 108 mmHg BP Diastolic 68 mmHg Height 65.50 inches 5'5.50" Weight 152.00 lb BMI (Body Mass Index) 24.9 kg/m2 Last Menstrual Period [id number] 1 Parity 1 Results Test Acquired Date Facility Test Result H/L Range Note Laboratory test 06/01/2019 [facility] Glucose 1 HR 98 mg/dL Normal 70-160 [address] [place] [address] Post Prandial [phone] CBC With No 06/01/2019 [facility] White Blood 10.0 Normal 3.5- 10.8 [place] [address] Count 10^3/uL [phone] Red Blood Count 3.61 10^6/uL Low 3.70-4.87 [...] 03/26/2019 [facility] Interpretation: SEE NOTE 2 2(MS) Risk for Ontd <1:5000 Age Risk Down Syndrome 1:480 GUILLAUME Down Syndrome Risk <1:5000 <1:270 GUILLAUME Trisomy 18 Risk <1:5000 <1:100 Calc'd Gestational Age 19.9 Afp, Serum 52.4 ng/mL Afp MoM 0.90 3 hCG, Serum 21.3 IU/mL hCG MoM 1.02 Estriol, Free 1.73 ng/mL Estriol MoM 0.95 Inhibin A, Dimeric 151 pg/mL Inhibin A MoM 0.78 Elise-A 91820.5 ng/mL 4 Elise-A MoM 14.50 5 Referring Physician Name CHARLOTTE Referring Physician Phone ON TEST REQ ABOV <SEE NOTE> 6 Referring Physician Npi [id number] Specimen # from Part 1 [id number] Date of 1985 Collection Date 03/26/2019 Maternal Weight 137 lbs Est'd Date of Delivery 08/14/2019 Mother's Ethnic Origin Insulin Depend Diabetic NO Repeat Specimen NO Number of Fetuses 1 Hx Of Neural Tube Defects NOT GIVEN Cigarette smoker NO 7 Laboratory test 03/26/2019 [facility] Enhanced PDF Report SEE IMAGE finding [id number] Laboratory test 02/19/2019 [facility] Miscellaneous Test See Comment [address] [place] [address] [phone] Zika Screen Nysdoh 02/05/2019 [facility] Zika Screen Nysdoh, SEE RESULT 9 ([facility] [place] [address] Serum BELOW [phone] Zika Screen Nysdoh, Urine SEE RESULT BELOW 10 Laboratory test finding 02/02/2019 [facility] Enhanced PDF Report SEE IMAGE [id number] Serum Integrated 02/02/2019 [facility] Comment: SEE NOTE 11 Screen, Part 1 (MS) Referring Physician Name DANIKA MONCADA Referring Physician Phone ON ABOVE Referring Physician Npi [id number] Date of 1985 Collection Date 02/02/2019 Maternal Weight 137 lbs Est'd Date of Delivery 08/14/2019 EDITH Determined by LMP Mother's Ethnic Origin Number of Fetuses 1 Insulin Depend Diabetic NO Repeat Specimen NO Hx Of Neural Tube Defects NOT GIVEN Prev Down Synd NO Donor Egg NOT GIVEN Donor Age: Egg Retrieval NOT GIVEN Cigarette smoker NO Urine Culture 01/19/2019 [facility] Urine SEE RESULT 12 [place] [address] Culture BELOW Sensitivities [phone] HIV 1&2 p24 01/19/2019 [facility] HIV 4th [place] [address] Generation [phone] Lead 01/19/2019 [facility] Lead,Venous, < 1.0 g/dL 0.0-4.9 13 [place] [address] B [phone] Venous/Capillary Venous Submitting Laboratory Phone [phone] Type And Screen 01/19/2019 [facility] Patient [place] [address] [phone] Antibody Screen NEGATIVE CBC With No 01/19/2019 [facility] White Blood 8.9 10^3/uL Normal 3.5-10.8 [place] [address] Count [phone] Red Blood Count 4.06 10^6/uL Normal 3.70-4.87 Hemoglobin 12.9 g/dL Normal 12.0-16.0 Hematocrit 38 % Normal 35-47 Mean Corpuscular Volume 92 fL Normal 80-97 Mean Corpuscular Hemoglobin 32 pg High 27-31 Mean Corpuscular HGB Conc 34 g/dL Normal 31-36 Red Cell Distribution Width 13 % Normal 10-15 Platelet Count 241 10^3/uL Normal 150-450 Mean Platelet Volume 7.8 fL Normal 7.4-10.4 PNL No 01/19/2019 [facility] Rubella Screen [place] [address] [phone] Hemoglobin A1c 5.3 % Normal 4.0-5.6 15 Hepatitis B Surface Ag Nonreactive Nonreactive Syphillis Igg W/Reflex RPR Negative Negative Laboratory test 01/19/2019 [facility] Enhanced PDF Report SEE IMAGE finding [id number] Sma Carrier Screen 01/19/2019 [facility] Technical Results NEGATIVE Negative 16 SMN1 2 COPIES SMN2 2 COPIES Interpretation SEE NOTE 17 Cfvantage(R) Cystic Fibrosis 01/19/2019 [facility] Ethnicity: Expanded SC CF Result NEGATIVE Negative 18 Interpretation SEE NOTE 19 Additional Information SEE NOTE 20 Mutations Analyzed SEE NOTE 21 GC/Chlamydia Dna 01/19/2019 [facility] Chlamydia [place] [address] trachomatis Esperanza [phone] Neisseria gonorrhoeae (GC) Esperanza Negative Negative Laboratory test 01/19/2019 [facility] Cytology SEE RESULT BELOW [address] [place] [address] [phone] 1 [id number] 2 SCREEN NEGATIVE FOR OPEN NTD, DOWN SYNDROME AND TRISOMY 18. 3 Reference Range: <2.50 IDD <1.90 TWINS <4.00 TWINS IDD <3.50 TRIPLETS <4.50 4 This test was performed using a kit that has not been cleared or approved by the FDA. The analytical performance characteristics of this test have been determined by [facility]. This test should not be used for [...] technique. Interpretation reviewed by: Sherley Baltazar, Ph.D., [facility]. 6 ON TEST REQ ABOVE 7 This [...] call ; For technical questions, call ext [phone]; For recalculations, fax to . For additional information, please refer to http://education.[employer]/faq/FAQ67 (This link is being provided for informational/educational purposes only.) 8 Test Result Flag Unit RefValue Controlled Substance Monitoring, U List Patient's Not Provided Current Medications ADDITIONAL INFORMATION Accuracy and completeness of declared medications on reports solely dependent on information submitted by client. Creatinine, U 23.2 mg/dL Specific [place] 1.006 pH 5.4 Oxidants Negative REFERENCE VALUE [...] Not Detected ng/mL Cutoff: 25 Tylenol 3 Zbvxmku-4-yplo- Not Detected ng/mL glucuronide Metabolite of codeine REFERENCE VALUE Cutoff: 100 Morphine Not Detected ng/mL Cutoff: 25 Luana Ham MS Contin; Also a minor metabolite (10%) of codeine and can be seen in low concentrations (<2,000 ng/mL) with poppy seed ingestion. Oqigfbxu-6-lixm- Not Detected ng/mL glucuronide Metabolite of morphine REFERENCE VALUE Cutoff: 100 6-monoacetylmorphine Not Detected ng/mL Cutoff: 25 Metabolite of heroin Hydrocodone Not Detected ng/mL Cutoff: 25 Lortab, [place], Vicodin; Also a very minor metabolite of [...] Numorphan, Opana; Also a metabolite of oxycodone. Fkfrmzjofum-4-jgvn- Not Detected ng/mL glucuronide Metabolite of oxymorphone REFERENCE VALUE Cutoff: 100 Noroxymorphone Not Detected ng/mL Cutoff: 25 Metabolite of oxymorphone Fentanyl Not Detected ng/mL Cutoff: 2 Actiq, Duragesic, [place] Norfentanyl Not Detected ng/mL Cutoff: 2 Metabolite of fentanyl Meperidine Not Detected ng/mL Cutoff: 25 Demerol Normeperidine Not Detected ng/mL Cutoff: 25 Metabolite of meperidine Naloxone Not Detected ng/mL Cutoff: 25 Narcan Evrszstv-2-rwim- Not Detected ng/mL glucuronide Metabolite of naloxone [...] and its performance characteristics determined by [facility] in a manner consistent with CLIA requirements. [...] and its performance characteristics determined by [facility] in a manner consistent with CLIA requirements. This test has not been cleared or approved by the U.S. Food and Drug Administration. Test Performed by: [facility] [address] [place] [address] Research Quality Assurance Specialist: Nadir Goodson M.D. Ph.D.; CLIA# [id number] 9 SEE RESULT BELOW Name: SHONDA ARREDONDO : [address]: Briseyda Lozano MD Acct: [id number] Unit: [id number] AGE: 33 Location: [facility] Re02/05/19 SEX: F Status: REG REF SPEC: [id number] VON: 02/05/[address]: Briseyda Lozano MD REQ: [id number] RECD: 02/05/19 STATUS: COMP _ SOURCE: SERUM SPDESC: ORDERED: Nathaniel Burton S COMMENTS: [id number] Procedure Result Reported Site Zika Screen [facility] Serum Final 02/13/19824 ML Zika virus RNA by real-time RT-PCR*:NOT [...] the absence of current or recent infection. [id number] collected: Negative Please see additional information about zika virus at: Fact Sheet for Patients: Understanding Results from theZika IgM Rapid Test http://BookBub/wp-content/uploads//For-patients.p df Fact Sheet for Healthcare Providers: Interpreting Zika IgM Rapid Test Results http://BookBub/wp-content/uploads//Dzp-ytayqg-hnl e-workes.pdf For detailed test interpretation guidance, please visit: https://health.[place].gov/diseases/zika_virus/providers.htm CONTINUED ON NEXT PAGE DEPARTMENT OF PATHOLOGY, [address] [place] [address] Phi Vazquez M.D. Director [facility] # [id number] Patient: SHONDA ARREDONDO [id number] (Continued) Specimen: [id number] Collected: 02/05/19 Received: 02/05/19 (Continued) Procedure Result Reported Site Zika Screen [facility], Serum Final (continued) 02/13/19824 Flavivirus Polyvalent Microsphere Immunofluorescence Assay (IgG+IgM+IgA)* Results suggest the absence of Zika and dengue antibodies. If recent infection is suspected collect another specimen in three weeks. Zika Polyvalent Microsphere Immunofluorescence Assay [id number] collected 02/05/19Result:Non-Reactive Dengue Polyvalent Microsphere Immunofluorescence Assay [id number] collected 02/05/19Result:Non-Reactive * The performance characteristics of this test were determined by the [facility]. It has not been cleared or approved by the U.S.Food and Drug Administration. Cross reactivity frequently occurs in serologic testing. Test Performed by: [facility] [address] [place] [address] * ML - [facility] . END OF REPORT DEPARTMENT OF PATHOLOGY, [address], [place], [place] [address] Phi Vazquez M.D. Director [facility] # [id number] 10 SEE RESULT BELOW Name: JHON ARREDONDOYN : [address]: Briseyda Lozano MD Acct: [id number] Unit: [id number] AGE: 33 Location: [facility] Re02/05/19 SEX: F Status: REG REF SPEC: [id number] VON: 02/05/[address] [facility] [address]: Briseyda Lozano MD REQ: [id number] RECD: 02/05/19 STATUS: COMP _ SOURCE: URINE SPDESC: ORDERED: Zika Screen, Ur COMMENTS: [id number] Procedure Result Reported Site Zika Screen [facility], Urine Final 02/13/19- 0826 ML Zika virus RNA by real-time RT-PCR*:NOT DETECTED * The performance characteristics of this test were determined by the [facility]. It has not been cleared or approved by the U.S.Food and Drug Administration. Cross reactivity frequently occurs in serologic testing. Test Performed by: [facility] [address] [place] [address] * ML - Main Lab . END OF REPORT DEPARTMENT OF PATHOLOGY, [address] [place] [address] Phi Vazquez M.D. Director [facility] # [id number] 11 Thank you for submitting this patients Part 1 specimen. Please submit her Part 2 specimen between 02/20/2019-04/16/2019 (15.0 and 22.9 weeks gestation) with 02/20/2019-03/05/2019 (15.0 and 16.9 weeks gestation) being optimal. When submitting Part 2, please include the following Specimen # from Part 1: [id number] This test was developed and its analytical performance characteristics have been determined by [facility]. It has not been cleared or approved by FDA. This assay has been validated pursuant to the CLIA regulations and is used for clinical purposes. For additional information, please refer to http://education.[employer]osia/faq/FAQ91 (This link is being provided for informational/educational purposes only.) It has been observed that patients who smoke cigarettes during may have a slightly increased risk of having a false positive GUILLAUME screen for Down Syndrome or trisomy 18. If you have questions concerning this report: For clinical consultation, call ; For technical questions, call ext [phone]; For recalculations, fax to [phone]. 12 SEE RESULT BELOW Name: SHONDA ARREDONDO : [address]: Xiomara Rivera CNM Acct: [id number] Unit: [id number] AGE: 33 Location: [facility] Re01/19/19 SEX: F Status: REG REF SPEC: [id number] VON: 01/19/[address]: Xiomara Rivera CNM REQ: [id number] RECD: 01/19/19 STATUS: COMP _ SOURCE: URINE SPDESC: ORDERED: Urine Culture COMMENTS: [id number] Urine Source: Random Procedure Result Reported Site Urine Culture Final 01/20/19- 1629 ML No Growth (<1,000 CFU/mL) * ML - Main Lab . END OF REPORT DEPARTMENT OF PATHOLOGY, [address] [place] [address] Phi Vazquez M.D. Director [facility] # [id number] 13 ADDITIONAL INFORMATION Testing performed by Inductively Coupled Plasma-Mass Spectrometry (ICP-MS). This test was developed and its performance characteristics determined by [facility] in a manner consistent with CLIA requirements. This test has not been cleared or approved by the U.S. Food and Drug Administration. 14 Test Performed by: [facility] - [address] [address] Research Quality Assurance Specialist: Nadir Goodson M.D. Ph.D.; CLIA# [id number] 15 Therapeutic target for the treatment of diabetes mellitus patients is <7% HBA1C, and in selective patients <6.0%. Please refer to [place] [employer] Association diabetic care guidelines for further [...] 41 1 in 350 1 in 4000 Sabianist 93% 1 in 53 1 in 628 1 in 5000 71% 1 in 66 1 in 121 1 in 3000 Argentine 91% 1 in 117 1 in 1061 1 in [address] SUPPLEMENTAL INFORMATION Spinal muscular atrophy (SMA) is [...] genes (SMN1 and SMN2) recommended by the [employer] (ACMG) for population-based SMA carrier screening. Health care providers, please contact your local [facility] genetic counselor or call [employer] [facility] Services at [email or web address] ([phone]) for assistance with the interpretation of these [...] analytical performance characteristics have been determined by [facility]. It has not been cleared or [...] currently unavailable for all mutations on the [facility] Cystic Fibrosis Expanded Screen. Detection rates may be slightly higher and residual risk rates may be slightly lower than the figures in this table since the estimates are based on a subset of mutations. Racial/Ethnic Detection Carrier Carrier Group Rate, % Rate Risk Before After Testing Negative Test Result Ashkenazi Sabianist 95 05/11 1 Non- 90 05/12 Argentine 88 78 Argentine 53 199 Laboratory results and submitted clinical information reviewed by Omar Robledo MD, MHA, FAC, CGMBS. 20 This assay detects the CF mutations listed below, including the twenty-three core mutations recommended by the [place] [employer] (ACMG) and the [place] [employer] Obstetricians [employer] Gynecologists (ACOG) for [...] Health care providers, please contact your local [facility] genetic counselor or call at [employer] ([phone]) for assistance with interpretation of these results. [...] (c.595C>T), P205S (c.613C>T), L206W (c.617T>G), Q220X (c.658C>T), 531pjw53 (c.041php11), 935delA (c.803delA), 936delTA (c.805delAT), A798jxe (c.933delCTT), 1078delT (c.948delT), G330X (c.988G>T), R334W (c.1000C>T), I336K (c.1007T>A), T338I (c.1013C>T), S341P (c.1021T>C), 1154insTC (c.1022insTC), 1161delC (c.1029delC), R347P (c.1040G>C), R347H (c.1040G>A), R352Q (c.1055G>A), 1213delT (c.1081delT), 1248+1G>A (c.1116+1G>A), 1259insA (c.1127insA), 1288insTA (c.1153insAT), W401X (c.1202G>A or c.1203G>A), 1341+1G>A (c.1209+1G>A), 3322cle6 (c.1329insAGAT), A455E (c.1364C>A), 1525-1G>A (c.1393-1G>A), S466X (c.1397C>A or c.1397C>G), L467P (c.1400T>C), 1548delG (c.1418delG), G480C (c.1438G>T), S489X (c.1466C>A), S492F (c.1475C>T), 1609delCA (c.1477delCA), Q493X (c.1477C>T), O964nkb (c.1519delATC), K620kdi (c.1521delCTT), 1677delTA (c.1545delTA), V520F (c.1558G>T), C524X (c.1572C>A), Q525X (c.1573C>T), 1717-1G>A (c.1585-1G>A), 1717-8G>A (c.1585-8G>A), G542X (c.1624G>T), S549R (c.1645A>C or c.1647T>G), S549N (c.1646G>A), G551D (c.1652G>A), Q552X (c.1654C>T), R553X (c.1657C>T), A559T (c.1675G>A), R560K (c.1679G>A), R560T (c.1679G>C), 1811+1.6kbA>G (c.1679+1.6kbA>G), 1812-1G>A (c.1680-1G>A), P574H (c.1721C>A), D579G (c.1736A>G), E585X (c.1753G>T), 1898+1G>T (c.1766+1G>T), 1898+1G>A (c.1766+1G>A), 1898+3A>G (c.1766+3A>G), 1898+5G>T (c.1766+5G>T), 2043delG (c.1911delG), 9843xyi3>A (c.3490ptf2yozY), 6396wjh05msw1 (c.6268vgy79fdxTFQFO), 2108delA (c.1976delA), 2143delT (c.2011delT), 2183AA>G (c.2051delAAinsG), 2184insA (c.2052insA), 2184delA (c.2052delA), R709X (c.2125C>T), K710X (c.2128A>T), 2307insA (c.2175insA), L732X (c.2195T>G), 2347delG (c.2215delG), R764X (c.2290C>T), 2585delT (c.2453delT), E822X (c.2464G>T), 2622+1G>A (c.2490+1G>A), E831X (c.2491G>T), W846X (c.2537G>A), R851X (c.2551C>T), 2711delT (c.2583delT), 2789+5G>A (c.2657+5G>A), Q890X (c.2668C>T), 2869insG (c.2737insG), L927P (c.2780T>C), S945L (c.2834C>T), 3007delG (c.2875delG), G970R (c.2908G>C), 3120G>A (c.2988G>A), 3120+1G>A (c.2988+1G>A), 3121-1G>A (c.2989-1G>A), 3171delC (c.3039delC), 3036dty4 (c.3067delATAGTG), 3272-26A>G (c.3140-26A>G), A0167N (c.3194T>C), K5215C (c.3196C>T), U5500Z (c.3197G>A), R3332H (c.3230T>C), W2321R (c.3266G>A), V8379Z (c.3276C>A or c.3276C>G), Z9929S (c.3278T>C), G3529P (c.3302T>A), G8371P (c.3310G>T), I0654V (c.3382A>T), O4671U (c.3435G>A), L9144P (c.3472C>T), I7342N (c.3484C>T), 3659delC (c.3528delC), 3211ipn9 (c.3535delACCA), S7809Q (c.3587C>G), A1550A (c.3611G>A or c.3612G>A), 3791delC (c.3659delC), 3821delT (c.3691delT), W9512F (c.3700A>G), X5409Y (c.3712C>T), 3849+10kbC>T (c.4347+68204V>T), L5103R (c.3731G>A), 3876delA (c.3744delA), M9871K (c.3752G>A), N9790B (c.3764C>A), 3905insT (c.3773insT), R3444A (c.3846G>A), E6083J (c.3848G>T), 4005+1G>A (c.3873+1G>A), 4016insT (c.3884insT), I8698O (c.3909C>G), M9142J (c.3937C>T), SNNPoitr51,23, 4209TGTT>AA (c.4077delTGTTinsAA), 4382delA (c.4251delA) This test was developed and its analytical performance characteristics have been determined by [facility]. It has not been cleared or approved by FDA. This assay has been validated pursuant to the CLIA regulations and is used for clinical purposes. For additional information, please refer to http://education.[employer]/faq/IXA641 (This link is being provided for information/educational purposes only.) 22 SEE RESULT BELOW Name: SHONDA ARREDONDO : [address]: Xiomara Rivera CNM Acct: [id number] Unit: [id number] AGE: 33 Location: [facility] Re01/19/19 SEX: F Status: REG REF SPEC: [id number] VON: 01/19/19-[address] [facility] DR: Xiomara Rivera CNM REQ: [id number] RECD: 01/22/19124 STATUS: SOUT _ ORDERED: TP IMAGE ANALYS, HPV/Thin Prep COMMENTS: [id number] FINAL DIAGNOSIS Negative for Intraepithelial lesion or [...] CONTINUED ON NEXT PAGE DEPARTMENT OF PATHOLOGY, [address] [place] [address] Phi Vazquez M.D. Director [facility] # [id number] Previous Abnormal Pap Smears?:N Signed by and Reported on: NIGEL Hill (ASCP) [id number] This Pap test was evaluated with the assistance of the [employer]P BiotechPrep Test Imaging System. Due to cytologic findings at the goldbeater microscope, comprehensive manual rescreening by a Post Office Clerk may be required. The Pap Smear is [...] years. END OF REPORT DEPARTMENT OF PATHOLOGY, [address] [place] [address] Phi Vazquez M.D. Director [facility] # [id number] Procedures Date Code Description Status 07/05/2019 88067 Biophysical Profile Without Non Stress Test Completed 07/05/2019 97009 Echography Uterus Follow-Up Or Repeat Completed 06/28/2019 85285 Biophysical Profile W/ NST Completed 06/28/2019 39643 Non-Stress Test Completed 06/22/2019 88911 Biophysical Profile Without Non Stress Test Completed 06/22/2019 06865 Echography Uterus Limited Completed 06/08/2019 55782 Biophysical Profile Without Non Stress Test Completed 06/08/2019 73633 Echography Uterus Follow-Up Or Repeat Completed 03/26/2019 53099 Echography Uterus Complete Completed 01/19/2019 48398 OB Ultrasound First Trimester Completed Medical Devices Description No Information Available Encounters Description No Information Available Assessments Date Code Description Provider 07/05/2019 O44.03 Complete placenta previa NOS or [...] placenta previa NOS or without Danika Moncada, LUIS hemorrhage, second trimester 03/26/2019 Z36.9 Encounter for [...] Encounter for supervision of other normal Xiomara Rivera CNM , first trimester 01/19/2019 O26.91 related conditions, unspecified, Ultrasounds first trimester Plan of Treatment Future Appointment(s):07/20/2019 2:00 pm - Nurses at [facility]07/20/2019 2: 30 pm - Ultrasounds at [facility]07/20/2019 3:00 pm - Abida Perez MD at [facility]08/28/2019 11:00 am - Abida Preez MD at [facility]08/01/2019 2 :00 pm - Danika Moncada CNM at [facility]07/25/2019 7:45 am - Abida Perez MD at [place] 1481507/10/2019 10:45 am - Abida Perez MD at [facility] Functional Status Description No Information Available Mental Status Description No Information Available Referrals Description No Information Available
--- OUTSIDE RECORDS SUMMARY | 2019-07-25 06:05 | XMS REPORT | Continuity of Care Document ---
:1985 External Reference #:[id number] Author Name Dennis Estes M.D. (transmitted by agent of provider Casie Rivera) Address [address] [place] [id number] Problems Active Problems Provider Date Multigravida Danika [...] Date Breast Pump electric breast 1units Z39.1 Arnoljanettefren Pradoes, 04/27/2019 Misc pump for lactating CNM mother Vitamins Unknown Immunizations CPT Code Status Date Vaccine Lot # 63600 Given 06/22/2019 Tetnus, Diptheria Toxoids And Acellular Pertussis, [id number] PT > 7Yrs Old [address] Given 08/10/2016 Tetnus, Diptheria Toxoids And Acellular Pertussis, [id number] PT > 7Yrs Old Vital Signs Date Vital Result Comment 01/19/2019 1:12pm BP Systolic 112 mmHg BP Diastolic 68 mmHg Height 65.50 inches 5'5.50" Weight 137.00 lb BMI (Body Mass Index) 22.4 kg/m2 Last Menstrual Period [id number] 2 Parity 1 12/15/2016 10:50am BP Systolic 108 mmHg BP Diastolic 68 mmHg Height 65.50 inches 5'5.50" Weight 152.00 lb BMI (Body Mass Index) 24.9 kg/m2 Last Menstrual Period 7636778 1 Parity 1 Results Test Acquired Date Facility Test Result H/L Range Note Laboratory test 06/01/2019 [facility] Glucose 1 HR 98 mg/dL Normal 70-160 1 [place] [address] Post Prandial [phone] CBC With No 06/01/2019 [facility] White Blood 10.0 Normal 3.5- 10.8 [place] [address] Count 10^3/uL [phone] Red Blood Count 3.61 10^6/uL Low 3.70-4.87 [...] 03/26/2019 [facility] Interpretation: SEE NOTE 2 2([place]) Risk for Ontd <1:5000 Age Risk Down Syndrome 1:480 GUILLAUME Down Syndrome Risk <1:5000 <1:270 GUILLAUME Trisomy 18 Risk <1:5000 <1:100 Calc'd Gestational Age 19.9 Afp, Serum 52.4 ng/mL Afp MoM 0.90 3 hCG, Serum 21.3 IU/mL hCG MoM 1.02 Estriol, Free 1.73 ng/mL Estriol MoM 0.95 Inhibin A, Dimeric 151 pg/mL Inhibin A MoM 0.78 Elise-A 07616.5 ng/mL 4 Elise-A MoM 14.50 5 Referring Physician Name CHARLOTTE Referring Physician Phone ON TEST REQ ABOV <SEE NOTE> 6 Referring Physician Npi [id number] Specimen # from Part 1 [id number] Date of 1985 Collection Date 03/26/2019 Maternal Weight 137 lbs Est'd Date of Delivery 08/14/2019 Mother's Ethnic Origin Insulin Depend Diabetic NO Repeat Specimen NO Number of Fetuses 1 Hx Of Neural Tube Defects NOT GIVEN Cigarette smoker NO 7 Laboratory test 03/26/2019 [facility] Enhanced PDF Report SEE IMAGE finding [id number] Laboratory test 02/19/2019 [facility] Miscellaneous Test See Comment 8 [place] [address] [phone] Zika Screen Nysdoh 02/05/2019 [facility] Zika Screen Nysdoh, SEE RESULT 9 ([facility] [place] [place] [address] Serum BELOW [phone] Zika Screen Nysdak, Urine SEE RESULT BELOW 10 Laboratory test finding 02/02/2019 [facility] Enhanced PDF Report SEE IMAGE [id number] Serum Integrated 02/02/2019 [facility] Comment: SEE NOTE 11 Screen, Part 1 ([place]) Referring Physician Name DANIKA LOUIECAROL Referring Physician Phone ON ABOVE Referring Physician Npi [id number] Date of 1985 Collection Date 02/02/2019 Maternal Weight 137 lbs Est'd Date of Delivery 08/14/2019 EDITH Determined by LMP Mother's Ethnic Origin Number of Fetuses 1 Insulin Depend Diabetic NO Repeat Specimen NO Hx Of Neural Tube Defects NOT GIVEN Prev Down Synd NO Donor Egg NOT GIVEN Donor Age: Egg Retrieval NOT GIVEN Cigarette smoker NO Urine Culture 01/19/2019 [facility] Urine SEE RESULT 12 [place] [address] Culture BELOW Sensitivities [phone] HIV 1&2 p24 01/19/2019 [facility] HIV 4th [place] [address] Generation [phone] Lead 01/19/2019 [facility] Lead,Venous, < 1.0 g/dL 0.0-4.9 13 [place] [address] B [phone] Venous/Capillary Venous Submitting Laboratory Phone [phone] Type And Screen 01/19/2019 [facility] Patient [place] [address] [phone] Antibody Screen NEGATIVE CBC With No 01/19/2019 [facility] White Blood 8.9 10^3/uL Normal 3.5-10.8 [place] [address] Count [phone] Red Blood Count 4.06 10^6/uL Normal 3.70-4.87 Hemoglobin 12.9 g/dL Normal 12.0-16.0 Hematocrit 38 % Normal 35-47 Mean Corpuscular Volume 92 fL Normal 80-97 Mean Corpuscular Hemoglobin 32 pg High 27-31 Mean Corpuscular HGB Conc 34 g/dL Normal 31-36 Red Cell Distribution Width 13 % Normal 10-15 Platelet Count 241 10^3/uL Normal 150-450 Mean Platelet Volume 7.8 fL Normal 7.4-10.4 PNL No 01/19/2019 [facility] Rubella Screen [place] [address] [phone] Hemoglobin A1c 5.3 % Normal 4.0-5.6 15 Hepatitis B Surface Ag Nonreactive Nonreactive Syphillis Igg W/Reflex RPR Negative Negative Laboratory test 01/19/2019 [facility] Enhanced PDF Report SEE IMAGE finding [id number] Sma Carrier Screen 01/19/2019 [facility] Technical Results NEGATIVE Negative 16 SMN1 2 COPIES SMN2 2 COPIES Interpretation SEE NOTE 17 Cfvantage(R) Cystic Fibrosis 01/19/2019 [facility] Ethnicity: Expanded SC CF Result NEGATIVE Negative 18 Interpretation SEE NOTE 19 Additional Information SEE NOTE 20 Mutations Analyzed SEE NOTE 21 GC/Chlamydia Dna 01/19/2019 [facility] Chlamydia [place] [address] trachomatis Esperanza [phone] Neisseria gonorrhoeae (GC) Esperanza Negative Negative Laboratory test 01/19/2019 [facility] Cytology SEE RESULT BELOW 22 finding [place], [place] [address] [phone] 1 [id number] 2 SCREEN NEGATIVE FOR OPEN NTD, DOWN SYNDROME AND TRISOMY 18. 3 Reference Range: <2.50 IDD <1.90 TWINS <4.00 TWINS IDD <3.50 TRIPLETS <4.50 4 This test was performed using a kit that has not been cleared or approved by the FDA. The analytical performance characteristics of this test have been determined by [facility]. This test should not be used for [...] technique. Interpretation reviewed by: Sherley Baltazar, Ph.D., [facility]. 6 ON TEST REQ ABOVE 7 [...] call ; For technical questions, call ext [phone]; For recalculations, fax to . For additional information, please refer to http://Aspen Evian.DotAlign/faq/FAQ87 (This link is being provided for informational/educational purposes only.) 8 Test Result Flag Unit RefValue Controlled Substance Monitoring, U List Patient's Not Provided Current Medications ADDITIONAL INFORMATION Accuracy and completeness of declared medications on reports solely dependent on information submitted by client. Creatinine, U 23.2 mg/dL Specific Austin 1.006 pH 5.4 Oxidants Negative REFERENCE VALUE [...] Not Detected ng/mL Cutoff: 25 Tylenol 3 Lqvyfzd-2-nyli- Not Detected ng/mL glucuronide Metabolite of codeine REFERENCE VALUE Cutoff: 100 Morphine Not Detected ng/mL Cutoff: 25 Luana Ham MS Contin; Also a minor metabolite (10%) of codeine and can be seen in low concentrations (<2,000 ng/mL) with poppy seed ingestion. Ibymqfsq-0-sgnb- Not Detected ng/mL glucuronide Metabolite of morphine REFERENCE VALUE Cutoff: 100 6-monoacetylmorphine Not Detected ng/mL Cutoff: 25 Metabolite of heroin Hydrocodone Not Detected ng/mL Cutoff: 25 Lortab, [place], Vicodin; Also a very minor metabolite of [...] Numorphan, Opana; Also a metabolite of oxycodone. Njnralyxzfe-1-hwxx- Not Detected ng/mL glucuronide Metabolite of oxymorphone REFERENCE VALUE Cutoff: 100 Noroxymorphone Not Detected ng/mL Cutoff: 25 Metabolite of oxymorphone Fentanyl Not Detected ng/mL Cutoff: 2 Actiq, Duragesic, Fentora Norfentanyl Not Detected ng/mL Cutoff: 2 Metabolite of fentanyl Meperidine Not Detected ng/mL Cutoff: 25 Demerol Normeperidine Not Detected ng/mL Cutoff: 25 Metabolite of meperidine Naloxone Not Detected ng/mL Cutoff: 25 Narcan Eqgvvbpv-1-vrje- Not Detected ng/mL glucuronide Metabolite of naloxone [...] developed and its performance characteristics determined by [facility] in a manner consistent with CLIA [...] developed and its performance characteristics determined by [facility] in a manner consistent with CLIA requirements. This test has not been cleared or approved by the U.S. Food and Drug Administration. Test Performed by: [facility] - [address] [address] Drum Tender: Nadir Goodson M.D. Ph.D.; CLIA# [id number] 9 SEE RESULT BELOW Name: SHONDA ARREDONDO : [address]: Briseyda Lozano MD Acct: [id number] Unit: [id number] AGE: 33 Location: [facility] Re02/05/19 SEX: F Status: REG REF SPEC: [id number] VON: 02/05/[address]: Briseyda Lozano MD REQ: [id number] RECD: 02/05/19 STATUS: COMP _ SOURCE: SERUM SPDESC: ORDERED: Zika Josephine, S COMMENTS: [id number] Procedure Result Reported Site Zika Screen [facility], Serum Final 02/13/19- 0825 ML [...] the absence of current or recent infection. [id number] collected: Negative Please see additional information about zika virus at: Fact Sheet for Patients: Understanding Results from theZika IgM Rapid Test http://Cedexis/wp-content/uploads//For-patients.p df Fact Sheet for Healthcare Providers: Interpreting Zika IgM Rapid Test Results http://Cedexis/wp-content/uploads//Gar-vzuvlz-qde e-workes.pdf For detailed test interpretation guidance, please visit: https://health.[place].gov/diseases/zika_virus/providers.htm CONTINUED ON NEXT PAGE DEPARTMENT OF PATHOLOGY, [address] [place] [address] Phi Vazquez M.D. Director [facility] # [id number] Patient: ARNULFOSHONDA [id number] (Continued) Specimen: [id number] Collected: 02/05/19 Received: 02/05/19 (Continued) Procedure Result Reported Site Zika Screen [facility] Final (continued) 02/13/19824 Flavivirus Polyvalent Microsphere Immunofluorescence Assay (IgG+IgM+IgA)* Results suggest the absence of Zika and dengue antibodies. If recent infection is suspected collect another specimen in three weeks. Zika Polyvalent Microsphere Immunofluorescence Assay [id number] collected 02/05/19Result:Non-Reactive Dengue Polyvalent Microsphere Immunofluorescence Assay [id number] collected 02/05/19Result:Non-Reactive * The performance characteristics of this test were determined by the [facility]. It has not been cleared or approved by the U.S.Food and Drug Administration. Cross reactivity frequently occurs in serologic testing. Test Performed by: [facility] [address] [place] [address] * [facility] - Main Lab . END OF REPORT DEPARTMENT OF PATHOLOGY, [address] [place] [address] Phi Vazquez M.D. Director [facility] # [id number] 10 SEE RESULT BELOW Name: ARNULFOSHONDA : [address]: Briseyda Lozano MD Acct: [id number] Unit: [id number] AGE: 33 Location: [facility] Re02/05/19 SEX: F Status: REG REF SPEC: [id number] VON: 02/05/[address] [facility] [address]: Briseyda Lozano MD REQ: [id number] RECD: 02/05/19 STATUS: COMP _ SOURCE: URINE SPDESC: ORDERED: Zika Screen, Ur COMMENTS: [id number] Procedure Result Reported Site Zika Screen [facility], Urine Final 02/13/19- 0826 ML Zika virus RNA by real-time RT-PCR*:NOT DETECTED * The performance characteristics of this test were determined by the [facility]. It has not been cleared or approved by the U.S.Food and Drug Administration. Cross reactivity frequently occurs in serologic testing. Test Performed by: [address] [address] * [facility] - Main Lab . END OF REPORT DEPARTMENT OF PATHOLOGY, [address] [place] [address] Phi Vazquez M.D. Director [facility] # [id number] 11 Thank you for submitting this patients Part 1 specimen. Please submit her Part 2 specimen between 02/20/2019-04/16/2019 (15.0 and 22.9 weeks gestation) with 02/20/2019-03/05/2019 (15.0 and 16.9 weeks gestation) being optimal. When submitting Part 2, please include the following Specimen # from Part 1: [id number] This test was developed and its analytical performance characteristics have been determined by [facility]. It has not been cleared or approved by FDA. This assay has been validated pursuant to the CLIA regulations and is used for clinical purposes. For additional information, please refer to http://education.SCI Marketview.Rapleaf/faq/FAQ91 (This link is being provided for informational/educational purposes only.) It has been observed that patients who smoke cigarettes during may have a slightly increased risk of having a false positive GUILLAUME screen for Down Syndrome or trisomy 18. If you have questions concerning this report: For clinical consultation, call ; For technical questions, call ext [phone]; For recalculations, fax to [phone]. 12 SEE RESULT BELOW Name: SHONDA ARREDONDO : [address]: Xiomara Rivera CNM Acct: [id number] Unit: [id number] AGE: 33 Location: [facility] Re01/19/19 SEX: F Status: REG REF SPEC: [id number] VON: 01/19/[address]: Xiomara Rivera CNM REQ: [id number] RECD: 01/19/19 STATUS: COMP _ SOURCE: URINE [facility]: ORDERED: Urine Culture COMMENTS: [id number] Urine Source: Random Procedure Result Reported Site Urine Culture Final 01/20/19- 1629 ML No Growth (<1,000 CFU/mL) * [facility] - Main Lab . END OF REPORT DEPARTMENT OF PATHOLOGY, [address] [place] [address] Phi Vazquez M.D. Director [facility] # [id number] 13 ADDITIONAL INFORMATION Testing performed by Inductively Coupled Plasma-Mass Spectrometry (ICP-MS). This test was developed and its performance characteristics determined by [facility] in a manner consistent with CLIA requirements. This test has not been cleared or approved by the U.S. Food and Drug Administration. 14 Test Performed by: [facility] - [address] [address] Drum Tender: Nadir Goodson M.D. Ph.D.; CLIA# [id number] 15 Therapeutic target for the treatment of diabetes mellitus patients is <7% HBA1C, and in selective patients <6.0%. Please refer to [place] Diabetes Association diabetic care guidelines for further [...] 41 1 in 350 1 in 4000 Mosque 93% 1 in 53 1 in 628 1 in 5000 71% 1 in 66 1 in 121 1 in 3000 Belgian 91% 1 in 117 1 in 1061 1 in [address] SUPPLEMENTAL INFORMATION Spinal muscular atrophy (SMA) is [...] genes (SMN1 and SMN2) recommended by the [place] [employer] (ACMG) for population-based SMA carrier screening. Health care providers, please contact your local [facility]' genetic counselor or call [facility] at [employer] ([phone]) for assistance with the interpretation of these [...] analytical performance characteristics have been determined by [facility]. It has not been cleared or approved [...] currently unavailable for all mutations on the Simulmedia() Cystic Fibrosis Expanded Screen. Detection rates may be slightly higher and residual risk rates may be slightly lower than the figures in this table since the estimates are based on a subset of mutations. Racial/Ethnic Detection Carrier Carrier Group Rate, % Rate Risk Before After Testing Negative Test Result Ashkenazi Mosque 95 05/11461 Non- 90 05/12 Belgian 88 1376 78 292 Belgian 53 Laboratory results and submitted clinical information reviewed by Omar Robledo MD, MHA, FACMG, CGMBS. 20 This assay detects the CF mutations listed below, including the twenty-three core mutations recommended by the [place] [employer] (ACMG) and the [place] Congress of Obstetricians and Gynecologists (ACOG) for [...] Health care providers, please contact your local [facility]' genetic counselor or call at [employer] ([phone]) for assistance with interpretation of these results. [...] (c.595C>T), P205S (c.613C>T), L206W (c.617T>G), Q220X (c.658C>T), 288dye48 (c.499bcz47), 935delA (c.803delA), 936delTA (c.805delAT), L833sfy (c.933delCTT), 1078delT (c.948delT), G330X (c.988G>T), R334W (c.1000C>T), I336K (c.1007T>A), T338I (c.1013C>T), S341P (c.1021T>C), 1154insTC (c.1022insTC), 1161delC (c.1029delC), R347P (c.1040G>C), R347H (c.1040G>A), R352Q (c.1055G>A), 1213delT (c.1081delT), 1248+1G>A (c.1116+1G>A), 1259insA (c.1127insA), 1288insTA (c.1153insAT), W401X (c.1202G>A or c.1203G>A), 1341+1G>A (c.1209+1G>A), 2803fox1 (c.1329insAGAT), A455E (c.1364C>A), 1525-1G>A (c.1393-1G>A), S466X (c.1397C>A or c.1397C>G), L467P (c.1400T>C), 1548delG (c.1418delG), G480C (c.1438G>T), S489X (c.1466C>A), S492F (c.1475C>T), 1609delCA (c.1477delCA), Q493X (c.1477C>T), U024mzt (c.1519delATC), J371kqx (c.1521delCTT), 1677delTA (c.1545delTA), V520F (c.1558G>T), C524X (c.1572C>A), Q525X (c.1573C>T), 1717-1G>A (c.1585-1G>A), 1717-8G>A (c.1585-8G>A), G542X (c.1624G>T), S549R (c.1645A>C or c.1647T>G), S549N (c.1646G>A), G551D (c.1652G>A), Q552X (c.1654C>T), R553X (c.1657C>T), A559T (c.1675G>A), R560K (c.1679G>A), R560T (c.1679G>C), 1811+1.6kbA>G (c.1679+1.6kbA>G), 1812-1G>A (c.1680-1G>A), P574H (c.1721C>A), D579G (c.1736A>G), E585X (c.1753G>T), 1898+1G>T (c.1766+1G>T), 1898+1G>A (c.1766+1G>A), 1898+3A>G (c.1766+3A>G), 1898+5G>T (c.1766+5G>T), 2043delG (c.1911delG), 5906zzf4>A (c.5457wwn0ofmJ), 8804wwv79gup5 (c.4046onn23zjsBCDBY), 2108delA (c.1975delA), 2143delT (c.2011delT), 2183AA>G (c.2051delAAinsG), 2184insA (c.2052insA), 2184delA (c.2052delA), R709X (c.2125C>T), K710X (c.2128A>T), 2307insA (c.2175insA), L732X (c.2195T>G), 2347delG (c.2215delG), R764X (c.2290C>T), 2585delT (c.2453delT), E822X (c.2464G>T), 2622+1G>A (c.2490+1G>A), E831X (c.2491G>T), W846X (c.2537G>A), R851X (c.2551C>T), 2711delT (c.2583delT), 2789+5G>A (c.2657+5G>A), Q890X (c.2668C>T), 2869insG (c.2737insG), L927P (c.2780T>C), S945L (c.2834C>T), 3007delG (c.2875delG), G970R (c.2908G>C), 3120G>A (c.2988G>A), 3120+1G>A (c.2988+1G>A), 3121-1G>A (c.2989-1G>A), 3171delC (c.3039delC), 6300tfr0 (c.3067delATAGTG), 3272-26A>G (c.3140-26A>G), O4763O (c.3194T>C), U4534N (c.3196C>T), Q4628E (c.3197G>A), R9836J (c.3230T>C), J6934B (c.3266G>A), V9761Q (c.3276C>A or c.3276C>G), U4376Q (c.3278T>C), Y7773Q (c.3302T>A), B3749X (c.3310G>T), P5771N (c.3382A>T), X0208G (c.3435G>A), H6581R (c.3472C>T), L1506Y (c.3484C>T), 3659delC (c.3528delC), 8364gvv8 (c.3535delACCA), D0848T (c.3587C>G), A1514R (c.3611G>A or c.3612G>A), 3791delC (c.3659delC), 3821delT (c.3691delT), X1141Y (c.3700A>G), J5664X (c.3712C>T), 3849+10kbC>T (c.3717+10930C>T), D7938H (c.3731G>A), 3876delA (c.3744delA), E4110H (c.3752G>A), L5468J (c.3764C>A), 3905insT (c.3773insT), U1564U (c.3846G>A), U2417H (c.3848G>T), 4005+1G>A (c.3873+1G>A), 4016insT (c.3884insT), F7847I (c.3909C>G), M5005D (c.3937C>T), MMCOplzs20,23, 4209TGTT>AA (c.4077delTGTTinsAA), 4382delA (c.4251delA) This test was developed and its analytical performance characteristics have been determined by [facility]. It has not been cleared or approved by FDA. This assay has been validated pursuant to the CLIA regulations and is used for clinical purposes. For additional information, please refer to http://education.SCI Marketview.Rapleaf/faq/RKC263 (This link is being provided for information/educational purposes only.) 22 SEE RESULT BELOW Name: SHONDA ARREDONDO : [address]: Xiomara Rivera CNM Acct: [id number] Unit: [id number] AGE: 33 Location: [facility] Re01/19/19 SEX: F Status: REG REF SPEC: [id number] VON: 01/19/19-[address]: Xiomara Rivera CNM REQ: [id number] RECD: 01/22/19 STATUS: SOUT _ ORDERED: TP IMAGE ANALYS, HPV/Thin Prep COMMENTS: [id number] FINAL DIAGNOSIS Negative for Intraepithelial lesion or [...] CONTINUED ON NEXT PAGE DEPARTMENT OF PATHOLOGY, [address] [place] [address] Phi Vazquez M.D. Director [facility] # [id number] Previous Abnormal Pap Smears?:N Signed by and Reported on: NIGEL Hill (ASCP) 4209 This Pap test was evaluated with the assistance of the ThinPrep Test Imaging System. Due to cytologic findings at the bobbin washer microscope, comprehensive manual rescreening by a Forest Technology Professor may be required. The Pap Smear is [...] years. END OF REPORT DEPARTMENT OF PATHOLOGY, [address] [place] [address] Phi Vazquez M.D. Director [facility] # [id number] Procedures Date Code Description Status 06/28/2019 57101 Biophysical Profile W/ NST Completed 06/28/2019 01459 Non-Stress Test Completed 06/22/2019 18486 Biophysical Profile Without Non Stress Test Completed 06/22/2019 28745 Echography Uterus Limited Completed 06/08/2019 52099 Biophysical Profile Without Non Stress Test Completed 06/08/2019 45642 Echography Uterus Follow-Up Or Repeat Completed 03/26/2019 08881 Echography Uterus Complete Completed 01/19/2019 45735 OB Ultrasound First Trimester Completed Medical Devices Description No Information Available Encounters Description No Information Available Assessments Date Code Description Provider 06/28/2019 Z36.9 Encounter for screening, Dennis Estes [...] placenta previa NOS or without Ricci Ronni JR, DO hemorrhage, second trimester 06/08/2019 O44.03 [...] Complete placenta previa NOS or without Danika Cristiald, CNM hemorrhage, second trimester 03/26/2019 Z36.9 Encounter [...] 10:45 am - Abida Perez MD at [facility] 9:15 am - Ultrasounds at [facility]07/18/2019 10:00 am - Abida Perez MD at [facility]07/05/2019 10:15 am - Mary Ann Rios MD at [facility] 9:45 am - Ultrasounds at [facility] Functional Status Description No Information Available Mental Status Description No Information Available Referrals Description No Information Available
--- OUTSIDE RECORDS SUMMARY | 2019-07-25 06:05 | XMS REPORT | Continuity of Care Document ---
:1985 External Reference #:[id number] Author Name Ultrasounds (transmitted by agent of provider Casie Rivera) Address [address] [place] [address] Problems Active Problems Provider Date Multigravida Danika [...] CPT Code Status Date Vaccine Lot # [id number] Given 06/22/2019 Tetnus, Diptheria Toxoids And Acellular Pertussis, [id number] PT > 7Yrs Old [id number] Given 08/10/2016 Tetnus, Diptheria Toxoids And Acellular Pertussis, [id number] PT > 7Yrs Old Vital Signs Date Vital Result Comment 01/19/2019 1:12pm BP Systolic 112 mmHg BP Diastolic 68 mmHg Height 65.50 inches 5'5.50" Weight 137.00 lb BMI (Body Mass Index) 22.4 kg/m2 Last Menstrual Period 1136135 2 Parity 1 12/15/2016 10:50am BP Systolic 108 mmHg BP Diastolic 68 mmHg Height 65.50 inches 5'5.50" Weight 152.00 lb BMI (Body Mass Index) 24.9 kg/m2 Last Menstrual Period 6612017 1 Parity 1 Results Test Acquired Date Facility Test Result H/L Range Note Laboratory test 06/01/2019 [facility] Glucose 1 HR 98 mg/dL Normal 70-160 1 [place] [address] Post Prandial [phone] CBC With No 06/01/2019 [facility] White Blood 10.0 Normal 3.5- 10.8 [place] [address] Count 10^3/uL [phone] Red Blood Count 3.61 10^6/uL Low 3.70-4.87 [...] 03/26/2019 [facility] Interpretation: SEE NOTE 2 2(CO) Risk for Ontd <1:5000 Age Risk Down Syndrome 1:480 GUILLAUME Down Syndrome Risk <1:5000 <1:270 GUILLAUME Trisomy 18 Risk <1:5000 <1:100 Calc'd Gestational Age 19.9 Afp, Serum 52.4 ng/mL Afp MoM 0.90 3 hCG, Serum 21.3 IU/mL hCG MoM 1.02 Estriol, Free 1.73 ng/mL Estriol MoM 0.95 Inhibin A, Dimeric 151 pg/mL Inhibin A MoM 0.78 Elise-A 90407.5 ng/mL 4 Elise-A MoM 14.50 5 Referring Physician Name CHARLOTTE Referring Physician Phone ON TEST REQ ABOV <SEE NOTE> 6 Referring Physician Npi [id number] Specimen # from Part 1 [id number] Date of 1985 Collection Date 03/26/2019 Maternal Weight 137 lbs Est'd Date of Delivery 08/14/2019 Mother's Ethnic Origin Insulin Depend Diabetic NO Repeat Specimen NO Number of Fetuses 1 Hx Of Neural Tube Defects NOT GIVEN Cigarette smoker NO 7 Laboratory test 03/26/2019 [facility] Enhanced PDF Report SEE IMAGE finding [id number] Laboratory test 02/19/2019 [facility] Miscellaneous Test See Comment [address] [place] [address] [phone] Zika Screen Nysdoh 02/05/2019 [facility] Zika Screen Nysdoh, SEE RESULT 9 ([facility] [place] [address] Serum BELOW [phone] Zika Screen Nysdoh, Urine SEE RESULT BELOW 10 Laboratory test finding 02/02/2019 [facility] Enhanced PDF Report SEE IMAGE [id number] Serum Integrated 02/02/2019 [facility] Comment: SEE NOTE 11 Screen, Part 1 (CO) Referring Physician Name DANIKA MONCADA Referring Physician Phone ON ABOVE Referring Physician Npi [id number] Date of 1985 Collection Date 02/02/2019 Maternal Weight 137 lbs Est'd Date of Delivery 08/14/2019 EDITH Determined by LMP Mother's Ethnic Origin Number of Fetuses 1 Insulin Depend Diabetic NO Repeat Specimen NO Hx Of Neural Tube Defects NOT GIVEN Prev Down Synd NO Donor Egg NOT GIVEN Donor Age: Egg Retrieval NOT GIVEN Cigarette smoker NO Urine Culture 01/19/2019 [facility] Urine SEE RESULT [address] [place] [address] Culture BELOW Sensitivities [phone] HIV 1&2 p24 01/19/2019 [facility] HIV 4th [place] [address] Generation [phone] Lead 01/19/2019 [facility] Lead,Venous, < 1.0 g/dL 0.0-4.9 13 [place] [address] B [phone] Venous/Capillary Venous Submitting Laboratory Phone [phone] Type And Screen 01/19/2019 [facility] Patient [place] [address] [phone] Antibody Screen NEGATIVE CBC With No 01/19/2019 [facility] White Blood 8.9 10^3/uL Normal 3.5-10.8 [place] [address] Count [phone] Red Blood Count 4.06 10^6/uL Normal 3.70-4.87 Hemoglobin 12.9 g/dL Normal 12.0-16.0 Hematocrit 38 % Normal 35-47 Mean Corpuscular Volume 92 fL Normal 80-97 Mean Corpuscular Hemoglobin 32 pg High 27-31 Mean Corpuscular HGB Conc 34 g/dL Normal 31-36 Red Cell Distribution Width 13 % Normal 10-15 Platelet Count 241 10^3/uL Normal 150-450 Mean Platelet Volume 7.8 fL Normal 7.4-10.4 PNL No 01/19/2019 [facility] Rubella Screen [place] [address] [phone] Hemoglobin A1c 5.3 % Normal 4.0-5.6 15 Hepatitis B Surface Ag Nonreactive Nonreactive Syphillis Igg W/Reflex RPR Negative Negative Laboratory test 01/19/2019 [facility] Enhanced PDF Report SEE IMAGE finding [id number] Sma Carrier Screen 01/19/2019 [facility] Technical Results NEGATIVE Negative 16 SMN1 2 COPIES SMN2 2 COPIES Interpretation SEE NOTE 17 Cfvantage(R) Cystic Fibrosis 01/19/2019 [facility] Ethnicity: Expanded SC CF Result NEGATIVE Negative 18 Interpretation SEE NOTE 19 Additional Information SEE NOTE 20 Mutations Analyzed SEE NOTE 21 GC/Chlamydia Dna 01/19/2019 [facility] Chlamydia [place] [address] trachomatis Esperanza [phone] Neisseria gonorrhoeae (GC) Esperanza Negative Negative Laboratory test 01/19/2019 [facility] Cytology SEE RESULT BELOW [address] [place] [address] [phone] 1 [id number] SCREEN NEGATIVE FOR OPEN NTD, DOWN SYNDROME AND TRISOMY 18. 3 Reference Range: <2.50 IDD <1.90 TWINS <4.00 TWINS IDD <3.50 TRIPLETS <4.50 4 This test was performed using a kit that has not been cleared or approved by the FDA. The analytical performance characteristics of this test have been determined by [facility]. This test should not be used [...] technique. Interpretation reviewed by: Sherley Baltazar, Ph.D., [facility]. 6 ON TEST REQ ABOVE 7 [...] call ; For technical questions, call ext [phone]; For recalculations, fax to . For additional information, please refer to http://education.[employer]/faq/FAQ34 (This link is being provided for informational/educational purposes only.) 8 Test Result Flag Unit RefValue Controlled Substance Monitoring, U List Patient's Not Provided Current Medications ADDITIONAL INFORMATION Accuracy and completeness of declared medications on reports solely dependent on information submitted by client. Creatinine, U 23.2 mg/dL Specific [place] 1.006 pH 5.4 Oxidants Negative REFERENCE VALUE [...] Not Detected ng/mL Cutoff: 25 Tylenol 3 Xesfaiq-8-gkli- Not Detected ng/mL glucuronide Metabolite of codeine REFERENCE VALUE Cutoff: 100 Morphine Not Detected ng/mL Cutoff: 25 Luana Ham MS Contin; Also a minor metabolite (10%) of codeine and can be seen in low concentrations (<2,000 ng/mL) with poppy seed ingestion. Ykvcimmq-1-kral- Not Detected ng/mL glucuronide Metabolite of morphine REFERENCE VALUE Cutoff: 100 6-monoacetylmorphine Not Detected ng/mL Cutoff: 25 Metabolite of heroin Hydrocodone Not Detected ng/mL Cutoff: 25 Lortab, [place], Vicodin; Also a very minor metabolite of [...] Numorphan, Opana; Also a metabolite of oxycodone. Gbydiwtxzlr-2-iqon- Not Detected ng/mL glucuronide Metabolite of oxymorphone REFERENCE VALUE Cutoff: 100 Noroxymorphone Not Detected ng/mL Cutoff: 25 Metabolite of oxymorphone Fentanyl Not Detected ng/mL Cutoff: 2 Actiq, Duragesic, Fentora Norfentanyl Not Detected ng/mL Cutoff: 2 Metabolite of fentanyl Meperidine Not Detected ng/mL Cutoff: 25 Demerol Normeperidine Not Detected ng/mL Cutoff: 25 Metabolite of meperidine Naloxone Not Detected ng/mL Cutoff: 25 Narcan Bqxdutci-1-qmgc- Not Detected ng/mL glucuronide Metabolite of naloxone [...] developed and its performance characteristics determined by [facility] in a manner consistent with CLIA requirements. [...] developed and its performance characteristics determined by [facility] in a manner consistent with CLIA requirements. This test has not been cleared or approved by the U.S. Food and Drug Administration. Test Performed by: [facility] [address] [place] [address] City Planning Aide: Nadir Goodson M.D. Ph.D.; CLIA# [id number] 9 SEE RESULT BELOW Name: SHONDA ARREDONDO : [address]: Briseyda Lozano MD Acct: [id number] Unit: [id number] AGE: 33 Location: [facility] Re02/05/19 SEX: F Status: REG REF SPEC: [id number] VON: 02/05/[address]: Briseyda Lozano MD REQ: [id number] RECD: 02/05/19 STATUS: COMP _ SOURCE: SERUM SPDESC: ORDERED: Jeffry Flaherty COMMENTS: [id number] Procedure Result Reported Site Natan Kim Final [...] the absence of current or recent infection. [id number] collected: Negative Please see additional information about zika virus at: Fact Sheet for Patients: Understanding Results from theZika IgM Rapid Test http://[employer]/wp-content/uploads//For-patients.p df Fact Sheet for Healthcare Providers: Interpreting Zika IgM Rapid Test Results http://[employer]/wp-content/uploads//Dyq-luuogw-ugb e-workes.pdf For detailed test interpretation guidance, please visit: https://health.[place].gov/diseases/zika_virus/providers.htm CONTINUED ON NEXT PAGE DEPARTMENT OF PATHOLOGY, [address] [place] [address] Phi Vazquez M.D. Director [facility] # [id number] Patient: SHONDA ARREDONDO [id number] (Continued) Specimen: [id number] Collected: 02/05/19 Received: 02/05/19 (Continued) Procedure Result Reported Site Zika Screen [facility], [facility] Final (continued) 02/13/19824 Flavivirus Polyvalent Microsphere Immunofluorescence Assay (IgG+IgM+IgA)* Results suggest the absence of Zika and dengue antibodies. If recent infection is suspected collect another specimen in three weeks. Zika Polyvalent Microsphere Immunofluorescence Assay [id number] collected 02/05/19Result:Non-Reactive Dengue Polyvalent Microsphere Immunofluorescence Assay [id number] collected 02/05/19Result:Non-Reactive * The performance characteristics of this test were determined by the [facility]. It has not been cleared or approved by the U.S.Food and Drug Administration. Cross reactivity frequently occurs in serologic testing. Test Performed by: [facility] [address] [place] [address] * ML - Main Lab . END OF REPORT DEPARTMENT OF PATHOLOGY, [address] [place] [address] Phi Vazquez M.D. Director [facility] # [id number] 10 SEE RESULT BELOW Name: ARNULFOSHONDA : [address]: Briseyda Lozano MD Acct: [id number] Unit: [id number] AGE: 33 Location: [facility] Re02/05/19 SEX: F Status: REG REF SPEC: [id number] VON: 02/05/[address] [facility] [address]: Briseyda Lozano MD REQ: [id number] RECD: 02/05/19 STATUS: COMP _ SOURCE: URINE SPDESC: ORDERED: Zika Screen, Ur COMMENTS: [id number] Procedure Result Reported Site Zika Screen FRANCIS, Urine Final 02/13/19- 0826 ML Zika virus RNA by real-time RT-PCR*:NOT DETECTED * The performance characteristics of this test were determined by the [facility]. It has not been cleared or approved by the U.S.Food and Drug Administration. Cross reactivity frequently occurs in serologic testing. Test Performed by: [facility] [address] [place] [address] * ML - Main Lab . END OF REPORT DEPARTMENT OF PATHOLOGY, [address] [place] [address] Phi Vazquez M.D. Director [facility] # [id number] 11 Thank you for submitting this patients Part 1 specimen. Please submit her Part 2 specimen between 02/20/2019-04/16/2019 (15.0 and 22.9 weeks gestation) with 02/20/2019-03/05/2019 (15.0 and 16.9 weeks gestation) being optimal. When submitting Part 2, please include the following Specimen # from Part 1: [id number] This test was developed and its analytical performance characteristics have been determined by [facility]. It has not been cleared or approved by FDA. This assay has been validated pursuant to the CLIA regulations and is used for clinical purposes. For additional information, please refer to http://education.[employer].World Vital Records/faq/FAQ91 (This link is being provided for informational/educational purposes only.) It has been observed that patients who smoke cigarettes during may have a slightly increased risk of having a false positive GUILLAUME screen for Down Syndrome or trisomy 18. If you have questions concerning this report: For clinical consultation, call ; For technical questions, call ext [phone]; For recalculations, fax to [phone]. 12 SEE RESULT BELOW Name: ARNULFOSHONDA : [address]: Xiomara Rivera CNM Acct: [id number] Unit: [id number] AGE: 33 Location: [facility] Re01/19/19 SEX: F Status: REG REF SPEC: [id number] VON: 01/19/[address]: Xiomara Rivera CNM REQ: [id number] RECD: 01/19/19 STATUS: COMP _ SOURCE: URINE SPDESC: ORDERED: Urine Culture COMMENTS: [id number] Urine Source: Random Procedure Result Reported Site Urine Culture Final 01/20/19- 1629 ML No Growth (<1,000 CFU/mL) * [facility] - Main Lab . END OF REPORT DEPARTMENT OF PATHOLOGY, [address] [place] [address] Phi Vazquez M.D. Director [facility] # [id number] 13 ADDITIONAL INFORMATION Testing performed by Inductively Coupled Plasma-Mass Spectrometry (ICP-MS). This test was developed and its performance characteristics determined by [facility] in a manner consistent with CLIA requirements. This test has not been cleared or approved by the U.S. Food and Drug Administration. 14 Test Performed by: [facility] - [address] [address] City Planning Aide: Nadir Goodson M.D. Ph.D.; CLIA# [id number] 15 Therapeutic target for the treatment of diabetes mellitus patients is <7% HBA1C, and in selective patients <6.0%. Please refer to [place] [employer] diabetic care guidelines for further [...] 41 1 in 350 1 in 4000 Protestant 93% 1 in 53 1 in 628 1 in 5000 71% 1 in 66 1 in 121 1 in 3000 Swazi 91% 1 in 117 1 in 1061 1 in [address] SUPPLEMENTAL INFORMATION Spinal muscular atrophy (SMA) is [...] genes (SMN1 and SMN2) recommended by the [place] [employer] (ACMG) for population-based SMA carrier screening. Health care providers, please contact your local [facility] genetic counselor or call [facility] [employer] at [phone] Rocket ([phone]) for assistance with the interpretation of these [...] analytical performance characteristics have been determined by [facility]. It has not been cleared or [...] currently unavailable for all mutations on the Grafoidwaldorf() Cystic Fibrosis Expanded Screen. Detection rates may be slightly higher and residual risk rates may be slightly lower than the figures in this table since the estimates are based on a subset of mutations. Racial/Ethnic Detection Carrier Carrier Group Rate, % Rate Risk Before After Testing Negative Test Result Ashkenazi Protestant 95 05/11 1 Non- 90 05/12 Swazi 88 78 Swazi 53 199 Laboratory results and submitted clinical information reviewed by Omar Robledo MD, A, FAC, CGMBS. 20 This assay detects the CF mutations listed below, including the twenty-three core mutations recommended by the [place] [employer] (ACMG) and the [place] [employer] of Obstetric[employer]nec[employer] (ACOG) for [...] Health care providers, please contact your local [facility] genetic counselor or call at [employer] ([phone]) for assistance with interpretation of these results. [...] (c.595C>T), P205S (c.613C>T), L206W (c.617T>G), Q220X (c.658C>T), 355jbf47 (c.850fab51), 935delA (c.803delA), 936delTA (c.805delAT), A341nsr (c.933delCTT), 1078delT (c.948delT), G330X (c.988G>T), R334W (c.1000C>T), I336K (c.1007T>A), T338I (c.1013C>T), S341P (c.1021T>C), 1154insTC (c.1022insTC), 1161delC (c.1029delC), R347P (c.1040G>C), R347H (c.1040G>A), R352Q (c.1055G>A), 1213delT (c.1081delT), 1248+1G>A (c.1116+1G>A), 1259insA (c.1127insA), 1288insTA (c.1153insAT), W401X (c.1202G>A or c.1203G>A), 1341+1G>A (c.1209+1G>A), 8815vub0 (c.1329insAGAT), A455E (c.1364C>A), 1525-1G>A (c.1393-1G>A), S466X (c.1397C>A or c.1397C>G), L467P (c.1400T>C), 1548delG (c.1418delG), G480C (c.1438G>T), S489X (c.1466C>A), S492F (c.1475C>T), 1609delCA (c.1477delCA), Q493X (c.1477C>T), K282cli (c.1519delATC), G579pis (c.1521delCTT), 1677delTA (c.1545delTA), V520F (c.1558G>T), C524X (c.1572C>A), Q525X (c.1573C>T), 1717-1G>A (c.1585-1G>A), 1717-8G>A (c.1585-8G>A), G542X (c.1624G>T), S549R (c.1645A>C or c.1647T>G), S549N (c.1646G>A), G551D (c.1652G>A), Q552X (c.1654C>T), R553X (c.1657C>T), A559T (c.1675G>A), R560K (c.1679G>A), R560T (c.1679G>C), 1811+1.6kbA>G (c.1679+1.6kbA>G), 1812-1G>A (c.1680-1G>A), P574H (c.1721C>A), D579G (c.1736A>G), E585X (c.1753G>T), 1898+1G>T (c.1766+1G>T), 1898+1G>A (c.1766+1G>A), 1898+3A>G (c.1766+3A>G), 1898+5G>T (c.1766+5G>T), 2043delG (c.1911delG), 0300mxn3>A (c.8532oan3fpyP), 3189oin72lrm8 (c.7954ntp93noaCOLNK), 2108delA (c.1976delA), 2143delT (c.2011delT), 2183AA>G (c.2051delAAinsG), 2184insA (c.2052insA), 2184delA (c.2052delA), R709X (c.2125C>T), K710X (c.2128A>T), 2307insA (c.2175insA), L732X (c.2195T>G), 2347delG (c.2215delG), R764X (c.2290C>T), 2585delT (c.2453delT), E822X (c.2464G>T), 2622+1G>A (c.2490+1G>A), E831X (c.2491G>T), W846X (c.2537G>A), R851X (c.2551C>T), 2711delT (c.2583delT), 2789+5G>A (c.2657+5G>A), Q890X (c.2668C>T), 2869insG (c.2737insG), L927P (c.2780T>C), S945L (c.2834C>T), 3007delG (c.2875delG), G970R (c.2908G>C), 3120G>A (c.2988G>A), 3120+1G>A (c.2988+1G>A), 3121-1G>A (c.2989-1G>A), 3171delC (c.3039delC), 8662orj1 (c.3067delATAGTG), 3272-26A>G (c.3140-26A>G), K9917Z (c.3194T>C), X7698J (c.3196C>T), F1449L (c.3197G>A), G6772B (c.3230T>C), O4180Y (c.3266G>A), K5315A (c.3276C>A or c.3276C>G), W4411K (c.3278T>C), Z3418Q (c.3302T>A), W8378Q (c.3310G>T), N3785S (c.3382A>T), I1096V (c.3435G>A), A7515F (c.3472C>T), Z4732U (c.3484C>T), 3659delC (c.3528delC), 1675blw2 (c.3535delACCA), R8398I (c.3587C>G), X8589H (c.3611G>A or c.3612G>A), 3791delC (c.3659delC), 3821delT (c.3691delT), S8875G (c.3700A>G), L8073W (c.3712C>T), 3849+10kbC>T (c.3717+40683E>T), A3317D (c.3731G>A), 3876delA (c.3744delA), A4334C (c.3752G>A), A5256R (c.3764C>A), 3905insT (c.3773insT), X8868M (c.3846G>A), G0604B (c.3848G>T), 4005+1G>A (c.3873+1G>A), 4016insT (c.3884insT), O8500R (c.3909C>G), W2398X (c.3937C>T), ECOPbbtb91,23, 4209TGTT>AA (c.4077delTGTTinsAA), 4382delA (c.4251delA) This test was developed and its analytical performance characteristics have been determined by [facility]. It has not been cleared or approved by FDA. This assay has been validated pursuant to the CLIA regulations and is used for clinical purposes. For additional information, please refer to http://education.[employer]/faq/PEH649 (This link is being provided for information/educational purposes only.) 22 SEE RESULT BELOW Name: SHONDA ARREDONDO : [address]: Xiomara Rivera CNM Acct: [id number] Unit: [id number] AGE: 33 Location: [facility] Re01/19/19 SEX: F Status: REG REF SPEC: [id number] VON: 01/19/19-[address]: Xiomara Rivera CNM REQ: [id number] RECD: 01/22/19 STATUS: SOUT _ ORDERED: TP IMAGE ANALYS, HPV/Thin Prep COMMENTS: [id number] FINAL DIAGNOSIS Negative for Intraepithelial lesion or [...] CONTINUED ON NEXT PAGE DEPARTMENT OF PATHOLOGY, [address] [place] [address] Phi Vazquez M.D. Director [facility] # [id number] Previous Abnormal Pap Smears?:N Signed by and Reported on: NIGEL Hill (ASCP) 6862 This Pap test was evaluated with the assistance of the [employer] Test Imaging System. Due to cytologic findings at the flight line mechanic microscope, comprehensive manual rescreening by a Lead Systems Developer may be required. The Pap Smear is [...] years. END OF REPORT DEPARTMENT OF PATHOLOGY, [address] [place] [address] Phi Vazquez M.D. Director [facility] # [id number] Procedures Date Code Description Status 07/05/2019 62174 Biophysical Profile Without Non Stress Test Completed 07/05/2019 79041 Echography Uterus Follow-Up Or Repeat Completed 06/28/2019 57191 Biophysical Profile W/ NST Completed 06/28/2019 49240 Non-Stress Test Completed 06/22/2019 14671 Biophysical Profile Without Non Stress Test Completed 06/22/2019 25601 Echography Uterus Limited Completed 06/08/2019 63631 Biophysical Profile Without Non Stress Test Completed 06/08/2019 95615 Echography Uterus Follow-Up Or Repeat Completed 03/26/2019 07154 Echography Uterus Complete Completed 01/19/2019 48999 OB Ultrasound First Trimester Completed Medical Devices Description No Information Available Encounters Description No Information Available Assessments Date Code Description Provider 07/05/2019 O44.13 Complete placenta previa with hemorrhage, [...] Complete placenta previa NOS or without Danika Macmariselaald, CNM hemorrhage, second trimester 03/26/2019 Z36.9 Encounter [...] Encounter for supervision of other normal Xiomara Rivera, LUIS , first trimester 01/19/2019 O26.91 related conditions, unspecified, Ultrasounds first trimester Plan of Treatment Future Appointment(s):07/11/2019 11:30 am - Ricci Rudolph JR, DO at [facility] 2:00 pm - Nurses at [facility]07/20/2019 2:30 pm - Ultrasounds at [facility]07/20/2019 3:00 pm - Abida Perez MD at [facility]08/28/2019 11 :00 am - Abida Perez MD at [facility]08/01/2019 2:00 pm - Danika Moncada CNM at [facility]07/25/2019 7:45 am - Abida Perez MD at [facility] O R Functional Status Description No Information Available Mental Status Description No Information Available Referrals Description No Information Available
--- OUTSIDE RECORDS SUMMARY | 2019-07-25 06:05 | XMS REPORT | Continuity of Care Document ---
:1985 External Reference #:[id number] Author Name Ricci Rudolph JR, DO (transmitted by agent of provider Claudia Summers) Address [address] [place] [address] Problems Active Problems Provider Date Multigravida Danika [...] CPT Code Status Date Vaccine Lot # [id number] Given 06/22/2019 Tetnus, Diptheria Toxoids And Acellular Pertussis, [id number] PT > 7Yrs Old [id number] Given 08/10/2016 Tetnus, Diptheria Toxoids And Acellular Pertussis, [id number] PT > 7Yrs Old Vital Signs Date Vital Result Comment 01/19/2019 1:12pm BP Systolic 112 mmHg BP Diastolic 68 mmHg Height 65.50 inches 5'5.50" Weight 137.00 lb BMI (Body Mass Index) 22.4 kg/m2 Last Menstrual Period [id number] 2 Parity 1 12/15/2016 10:50am BP Systolic 108 mmHg BP Diastolic 68 mmHg Height 65.50 inches 5'5.50" Weight 152.00 lb BMI (Body Mass Index) 24.9 kg/m2 Last Menstrual Period 9788848 1 Parity 1 Results Test Acquired Date Facility Test Result H/L Range Note Laboratory test 07/11/2019 [facility] Genital For <pending> [place] [address] GRP B Strep [phone] Only Laboratory test 06/01/2019 [facility] Glucose 1 HR 98 mg/dL Normal 70-160 1 [place] [address] Post Prandial [phone] CBC With No 06/01/2019 [facility] White Blood 10.0 Normal 3.5- 10.8 [place] [address] Count 10^3/uL [phone] Red Blood Count 3.61 10^6/uL Low 3.70-4.87 [...] 03/26/2019 [facility] Interpretation: SEE NOTE 2 2([place]) Risk for Ontd <1:5000 Age Risk Down Syndrome 1:480 GUILLAUME Down Syndrome Risk <1:5000 <1:270 GUILLAUME Trisomy 18 Risk <1:5000 <1:100 Calc'd Gestational Age 19.9 Afp, Serum 52.4 ng/mL Afp MoM 0.90 3 hCG, Serum 21.3 IU/mL hCG MoM 1.02 Estriol, Free 1.73 ng/mL Estriol MoM 0.95 Inhibin A, Dimeric 151 pg/mL Inhibin A MoM 0.78 Elise-A 22462.5 ng/mL 4 Elise-A MoM 14.50 5 Referring Physician Name CHARLOTTE Referring Physician Phone ON TEST REQ ABOV <SEE NOTE> 6 Referring Physician Npi [id number] Specimen # from Part 1 [id number] Date of 1985 Collection Date 03/26/2019 Maternal Weight 137 lbs Est'd Date of Delivery 08/14/2019 Mother's Ethnic Origin Insulin Depend Diabetic NO Repeat Specimen NO Number of Fetuses 1 Hx Of Neural Tube Defects NOT GIVEN Cigarette smoker NO 7 Laboratory test 03/26/2019 [facility] Enhanced PDF Report SEE IMAGE finding [id number] Laboratory test 02/19/2019 [facility] Miscellaneous Test See Comment 8 [place] [address] [phone] Zika Screen Nysdoh 02/05/2019 [facility] Zika Screen Nysdoh, SEE RESULT 9 ([facility] [place] [address] Serum BELOW [phone] Zika Screen Nysdoh, Urine SEE RESULT BELOW 10 Laboratory test finding 02/02/2019 [facility] Enhanced PDF Report SEE IMAGE [id number] Serum Integrated 02/02/2019 [facility] Comment: SEE NOTE 11 Screen, Part 1 ([place]) Referring Physician Name DANIKA MONCADA Referring Physician Phone ON ABOVE Referring Physician Npi [id number] Date of 1985 Collection Date 02/02/2019 Maternal Weight 137 lbs Est'd Date of Delivery 08/14/2019 EDITH Determined by LMP Mother's Ethnic Origin Number of Fetuses 1 Insulin Depend Diabetic NO Repeat Specimen NO Hx Of Neural Tube Defects NOT GIVEN Prev Down Synd NO Donor Egg NOT GIVEN Donor Age: Egg Retrieval NOT GIVEN Cigarette smoker NO Urine Culture 01/19/2019 [facility] Urine SEE RESULT 12 [place] [address] Culture BELOW Sensitivities [phone] HIV 1&2 p24 01/19/2019 [facility] HIV 4th [place] [address] Generation [phone] Lead 01/19/2019 [facility] Lead,Venous, < 1.0 g/dL 0.0-4.9 13 [place] [address] B [phone] Venous/Capillary Venous Submitting Laboratory Phone [phone] Type And Screen 01/19/2019 [facility] Patient [place] [address] [phone] Antibody Screen NEGATIVE CBC With No 01/19/2019 [facility] White Blood 8.9 10^3/uL Normal 3.5-10.8 [place] [address] Count [phone] Red Blood Count 4.06 10^6/uL Normal 3.70-4.87 Hemoglobin 12.9 g/dL Normal 12.0-16.0 Hematocrit 38 % Normal 35-47 Mean Corpuscular Volume 92 fL Normal 80-97 Mean Corpuscular Hemoglobin 32 pg High 27-31 Mean Corpuscular HGB Conc 34 g/dL Normal 31-36 Red Cell Distribution Width 13 % Normal 10-15 Platelet Count 241 10^3/uL Normal 150-450 Mean Platelet Volume 7.8 fL Normal 7.4-10.4 PNL No 01/19/2019 [facility] Rubella Screen Immune Immune Urine [place], [place] [address]73 [phone] Hemoglobin A1c 5.3 % Normal 4.0-5.6 15 Hepatitis B Surface Ag Nonreactive Nonreactive Syphillis Igg W/Reflex RPR Negative Negative Laboratory test 01/19/2019 [facility] Enhanced PDF Report SEE IMAGE finding [id number] Sma Carrier Screen 01/19/2019 [facility] Technical Results NEGATIVE Negative 16 SMN1 2 COPIES SMN2 2 COPIES Interpretation SEE NOTE 17 Cfvantage(R) Cystic Fibrosis 01/19/2019 [facility] Ethnicity: Expanded SC CF Result NEGATIVE Negative 18 Interpretation SEE NOTE 19 Additional Information SEE NOTE 20 Mutations Analyzed SEE NOTE 21 GC/Chlamydia Dna 01/19/2019 [facility] Chlamydia [place] [address] trachomatis Esperanza [phone] Neisseria gonorrhoeae (GC) Esperanza Negative Negative Laboratory test 01/19/2019 [facility] Cytology SEE RESULT BELOW 22 [place] [address] [phone] 1 [id number] SCREEN NEGATIVE FOR OPEN NTD, DOWN SYNDROME AND TRISOMY 18. 3 Reference Range: <2.50 IDD <1.90 TWINS <4.00 TWINS IDD <3.50 TRIPLETS <4.50 4 This test was performed using a kit that has not been cleared or approved by the FDA. The analytical performance characteristics of this test have been determined by [facility]. This test should not be [...] technique. Interpretation reviewed by: Sherley Baltazar, Ph.D., [facility]. 6 ON TEST REQ ABOVE 7 [...] call ; For technical questions, call ext [phone]; For recalculations, fax to . For additional information, please refer to http://education.[address]/faq/FAQ93 (This link is being provided for informational/educational purposes only.) 8 Test Result Flag Unit RefValue Controlled Substance Monitoring, U List Patient's Not Provided Current Medications ADDITIONAL INFORMATION Accuracy and completeness of declared medications on reports solely dependent on information submitted by client. Creatinine, U 23.2 mg/dL Specific [place] 1.006 pH 5.4 Oxidants Negative REFERENCE VALUE [...] Not Detected ng/mL Cutoff: 25 Tylenol 3 Srytvqq-4-jnfg- Not Detected ng/mL glucuronide Metabolite of codeine REFERENCE VALUE Cutoff: 100 Morphine Not Detected ng/mL Cutoff: 25 Luana Ham, MS Contin; Also a minor metabolite (10%) of codeine and can be seen in low concentrations (<2,000 ng/mL) with poppy seed ingestion. Ulmrwvty-4-vzvy- Not Detected ng/mL glucuronide Metabolite of morphine REFERENCE VALUE Cutoff: 100 6-monoacetylmorphine Not Detected ng/mL Cutoff: 25 Metabolite of heroin Hydrocodone Not Detected ng/mL Cutoff: 25 Lortab, [place], Vicodin; Also a very minor metabolite of [...] Numorphan, Opana; Also a metabolite of oxycodone. Ldgunpvzfvc-0-bjcm- Not Detected ng/mL glucuronide Metabolite of oxymorphone REFERENCE VALUE Cutoff: 100 Noroxymorphone Not Detected ng/mL Cutoff: 25 Metabolite of oxymorphone Fentanyl Not Detected ng/mL Cutoff: 2 Actiq, Duragesic, Fentora Norfentanyl Not Detected ng/mL Cutoff: 2 Metabolite of fentanyl Meperidine Not Detected ng/mL Cutoff: 25 Demerol Normeperidine Not Detected ng/mL Cutoff: 25 Metabolite of meperidine Naloxone Not Detected ng/mL Cutoff: 25 Narcan Zrmcitzi-0-pfmm- Not Detected ng/mL glucuronide Metabolite of naloxone [...] developed and its performance characteristics determined by [facility] in a manner consistent with CLIA [...] developed and its performance characteristics determined by [facility] in a manner consistent with CLIA requirements. This test has not been cleared or approved by the U.S. Food and Drug Administration. Test Performed by: [facility] [address] [place] [address] Abrasive Worker: Nadir Goodson M.D. Ph.D.; CLIA# [id number] 9 SEE RESULT BELOW Name: SHONDA ARREDONDO : [address]: Briseyda Lozano MD Acct: [id number] Unit: [id number] AGE: 33 Location: [facility] Re02/05/19 SEX: F Status: REG REF SPEC: [id number] VON: 02/05/[address]: Briseyda Lozano MD REQ: [id number] RECD: 02/05/19 STATUS: COMP _ SOURCE: SERUM SPDESC: ORDERED: Nathaniel Burton S COMMENTS: [id number] Procedure Result Reported Site Zika Screen FRANCIS, Serum Final 02/13/19- 0825 ML Zika virus [...] the absence of current or recent infection. [id number] collected: Negative Please see additional information about zika virus at: Fact Sheet for Patients: Understanding Results from theZika IgM Rapid Test http://[facility]/wp-content/uploads//For-patients.p df Fact Sheet for Healthcare Providers: Interpreting Zika IgM Rapid Test Results http://[facility]/wp-content/uploads//Aic-wwvobz-dnf e-workes.pdf For detailed test interpretation guidance, please visit: https://health.[place].gov/diseases/zika_virus/providers.htm CONTINUED ON NEXT PAGE DEPARTMENT OF PATHOLOGY, [address] [place] [address] Phi Vazquez M.D. Director [facility] # [id number] Patient: SHONDA ARREDONDO [id number] (Continued) Specimen: [id number] Collected: 02/05/19 Received: 02/05/19 (Continued) Procedure Result Reported Site Zika Screen [facility] Final (continued) 02/13/19824 Flavivirus Polyvalent Microsphere Immunofluorescence Assay (IgG+IgM+IgA)* Results suggest the absence of Zika and dengue antibodies. If recent infection is suspected collect another specimen in three weeks. Zika Polyvalent Microsphere Immunofluorescence Assay [id number] collected 02/05/19Result:Non-Reactive Dengue Polyvalent Microsphere Immunofluorescence Assay [id number] collected 02/05/19Result:Non-Reactive * The performance characteristics of this test were determined by the [facility]. It has not been cleared or approved by the U.S.Food and Drug Administration. Cross reactivity frequently occurs in serologic testing. Test Performed by: [facility] [address] [address] * - [facility] . END OF REPORT DEPARTMENT OF PATHOLOGY, [address] [place] [address] Phi Vazquez M.D. Director [facility] # [id number] 10 SEE RESULT BELOW Name: SHONDA ARREDONDO : [address]: Briseyda Lozano MD Acct: [id number] Unit: [id number] AGE: 33 Location: [facility] Re02/05/19 SEX: F Status: REG REF SPEC: [id number] VON: 02/05/19 [facility] DR: Briseyda Lozano MD REQ: [id number] RECD: 02/05/19 STATUS: COMP _ SOURCE: URINE SPDESC: ORDERED: Zika Screen, Ur COMMENTS: [id number] Procedure Result Reported Site Zika Screen FRANCIS, Rita Final 02/13/19- 08 ML Zika virus RNA by real-time RT-PCR*:NOT DETECTED * The performance characteristics of this test were determined by the [facility]. It has not been cleared or approved by the U.S.Food and Drug Administration. Cross reactivity frequently occurs in serologic testing. Test Performed by: [facility] [address] [place] [address] * ML - Main Lab . END OF REPORT DEPARTMENT OF PATHOLOGY, [address] [place] [address] Phi Vazquez M.D. Director [facility] # [id number] 11 Thank you for submitting this patients Part 1 specimen. Please submit her Part 2 specimen between 02/20/2019-04/16/2019 (15.0 and 22.9 weeks gestation) with 02/20/2019-03/05/2019 (15.0 and 16.9 weeks gestation) being optimal. When submitting Part 2, please include the following Specimen # from Part 1: [id number] This test was developed and its analytical performance characteristics have been determined by [facility]. It has not been cleared or approved by FDA. This assay has been validated pursuant to the CLIA regulations and is used for clinical purposes. For additional information, please refer to http://education.[address]/faq/FAQ20 (This link is being provided for informational/educational purposes only.) It has been observed that patients who smoke cigarettes during may have a slightly increased risk of having a false positive GULILAUME screen for Down Syndrome or trisomy 18. If you have questions concerning this report: For clinical consultation, call ; For technical questions, call ext [phone]; For recalculations, fax to [phone]. 12 SEE RESULT BELOW Name: ARNULFOSHONDA UNDERWOOD : [address]: Xiomara Rivera CNM Acct: [id number] Unit: [id number] AGE: 33 Location: [facility] Re01/19/19 SEX: F Status: REG REF SPEC: [id number] VON: 01/19/[address]: Xiomara Rivera CNM REQ: [id number] RECD: 01/19/19 STATUS: COMP _ SOURCE: URINE SPDESC: ORDERED: Urine Culture COMMENTS: [id number] Urine Source: Random Procedure Result Reported Site Urine Culture Final 01/20/19- 9 ML No Growth (<1,000 CFU/mL) * ML - Main Lab . END OF REPORT DEPARTMENT OF PATHOLOGY, [address] [place] [address] Phi Vazquez M.D. Director [facility] # [id number] 13 ADDITIONAL INFORMATION Testing performed by Inductively Coupled Plasma-Mass Spectrometry (ICP-MS). This test was developed and its performance characteristics determined by [facility] in a manner consistent with CLIA requirements. This test has not been cleared or approved by the U.S. Food and Drug Administration. 14 Test Performed by: [address] [address] Abrasive Worker: Nadir Goodson M.D. Ph.D.; CLIA# [id number] 15 Therapeutic target for the treatment of diabetes mellitus patients is <7% HBA1C, and in selective patients <6.0%. Please refer to [place] Diabetes Association diabetic care guidelines for further [...] 41 1 in 350 1 in 4000 Spiritism 93% 1 in 53 1 in 628 1 in 5000 71% 1 in 66 1 in 121 1 in 3000 R[place]andan 91% 1 in 117 1 in 1061 1 in [address] SUPPLEMENTAL INFORMATION Spinal muscular atrophy (SMA) is [...] genes (SMN1 and SMN2) recommended by the [place] [employer] (ACMG) for population-based SMA carrier screening. Health care providers, please contact your local [facility] genetic counselor or call [employer] [facility] at [id number] ([phone]) for assistance with the interpretation of these [...] analytical performance characteristics have been determined by [facility]. It has not been cleared [...] currently unavailable for all mutations on the [employer] Cystic Fibrosis Expanded Screen. Detection rates may be slightly higher and residual risk rates may be slightly lower than the figures in this table since the estimates are based on a subset of mutations. Racial/Ethnic Detection Carrier Carrier Group Rate, % Rate Risk Before After Testing Negative Test Result Ashkenazi Spiritism 95 05/11461 Non- 90 05/12241 Rwandan 88 1376 78 1292 Rwandan 53 199 Laboratory results and submitted clinical information reviewed by Omar Robledo MD, A, FAC, CGMBS. 20 This assay detects the CF mutations listed below, including the twenty-three core mutations recommended by the [place] [employer] (ACMG) and the [place] [employer] of Obstetricians and Gynecologists (ACOG) for [...] Health care providers, please contact your local [facility]' genetic counselor or call at [address] [place] [address] ([phone]) for assistance with interpretation of these results. [...] (c.595C>T), P205S (c.613C>T), L206W (c.617T>G), Q220X (c.658C>T), 815yem34 (c.094rqd48), 935delA (c.803delA), 936delTA (c.805delAT), V528oiy (c.933delCTT), 1078delT (c.948delT), G330X (c.988G>T), R334W (c.1000C>T), I336K (c.1007T>A), T338I (c.1013C>T), S341P (c.1021T>C), 1154insTC (c.1022insTC), 1161delC (c.1029delC), R347P (c.1040G>C), R347H (c.1040G>A), R352Q (c.1055G>A), 1213delT (c.1081delT), 1248+1G>A (c.1116+1G>A), 1259insA (c.1127insA), 1288insTA (c.1153insAT), W401X (c.1202G>A or c.1203G>A), 1341+1G>A (c.1209+1G>A), 1669bfc2 (c.1329insAGAT), A455E (c.1364C>A), 1525-1G>A (c.1393-1G>A), S466X (c.1397C>A or c.1397C>G), L467P (c.1400T>C), 1548delG (c.1418delG), G480C (c.1438G>T), S489X (c.1466C>A), S492F (c.1475C>T), 1609delCA (c.1477delCA), Q493X (c.1477C>T), W271hya (c.1519delATC), M546cxw (c.1521delCTT), 1677delTA (c.1545delTA), V520F (c.1558G>T), C524X (c.1572C>A), Q525X (c.1573C>T), 1717-1G>A (c.1585-1G>A), 1717-8G>A (c.1585-8G>A), G542X (c.1624G>T), S549R (c.1645A>C or c.1647T>G), S549N (c.1646G>A), G551D (c.1652G>A), Q552X (c.1654C>T), R553X (c.1657C>T), A559T (c.1675G>A), R560K (c.1679G>A), R560T (c.1679G>C), 1811+1.6kbA>G (c.1679+1.6kbA>G), 1812-1G>A (c.1680-1G>A), P574H (c.1721C>A), D579G (c.1736A>G), E585X (c.1753G>T), 1898+1G>T (c.1766+1G>T), 1898+1G>A (c.1766+1G>A), 1898+3A>G (c.1766+3A>G), 1898+5G>T (c.1766+5G>T), 2043delG (c.1911delG), 5476jof4>A (c.3023lus7zwnY), 8920kuo75hyw6 (c.7840uej45jamKGEOG), 2108delA (c.1976delA), 2143delT (c.2011delT), 2183AA>G (c.2051delAAinsG), 2184insA (c.2052insA), 2184delA (c.2052delA), R709X (c.2125C>T), K710X (c.2128A>T), 2307insA (c.2175insA), L732X (c.2195T>G), 2347delG (c.2215delG), R764X (c.2290C>T), 2585delT (c.2453delT), E822X (c.2464G>T), 2622+1G>A (c.2490+1G>A), E831X (c.2491G>T), W846X (c.2537G>A), R851X (c.2551C>T), 2711delT (c.2583delT), 2789+5G>A (c.2657+5G>A), Q890X (c.2668C>T), 2869insG (c.2737insG), L927P (c.2780T>C), S945L (c.2834C>T), 3007delG (c.2875delG), G970R (c.2908G>C), 3120G>A (c.2988G>A), 3120+1G>A (c.2988+1G>A), 3121-1G>A (c.2989-1G>A), 3171delC (c.3039delC), 1994msl2 (c.3067delATAGTG), 3272-26A>G (c.3140-26A>G), L9803J (c.3194T>C), T3091D (c.3196C>T), X0728H (c.3197G>A), B3798X (c.3230T>C), V7986C (c.3266G>A), N8369X (c.3276C>A or c.3276C>G), O4766W (c.3278T>C), K5956S (c.3302T>A), E0128N (c.3310G>T), G4838T (c.3382A>T), Y2770L (c.3435G>A), A5165A (c.3472C>T), N7207H (c.3484C>T), 3659delC (c.3528delC), 1213yav5 (c.3535delACCA), X5471R (c.3587C>G), E7672T (c.3611G>A or c.3612G>A), 3791delC (c.3659delC), 3821delT (c.3691delT), C2789W (c.3700A>G), K6420G (c.3712C>T), 3849+10kbC>T (c.3717+21144G>T), K3379B (c.3731G>A), 3876delA (c.3744delA), Y8028T (c.3752G>A), I3493U (c.3764C>A), 3905insT (c.3773insT), L1354T (c.3846G>A), Q6042G (c.3848G>T), 4005+1G>A (c.3873+1G>A), 4016insT (c.3884insT), U0323Z (c.3909C>G), C3857T (c.3937C>T), HEHJgydf19,23, 4209TGTT>AA (c.4077delTGTTinsAA), 4382delA (c.4251delA) This test was developed and its analytical performance characteristics have been determined by [facility]. It has not been cleared or approved by FDA. This assay has been validated pursuant to the CLIA regulations and is used for clinical purposes. For additional information, please refer to http://education.[address]/faq/BPF466 (This link is being provided for information/educational purposes only.) 22 SEE RESULT BELOW Name: SHONDA ARREDONDO : [address]: Xiomara Rivera CNM Acct: [id number] Unit: [id number] AGE: 33 Location: [facility] Re01/19/19 SEX: F Status: REG REF SPEC: [id number] VON: 01/19/19-1457 [facility] DR: Xiomara Rivera CNM REQ: [id number] RECD: 01/22/19124 STATUS: SOUT _ ORDERED: TP IMAGE ANALYS, HPV/Thin Prep COMMENTS: [id number] FINAL DIAGNOSIS Negative for Intraepithelial lesion or [...] CONTINUED ON NEXT PAGE DEPARTMENT OF PATHOLOGY, [address] [place] [address] Phi Vazquez M.D. Director [facility] # [id number] Previous Abnormal Pap Smears?:N Signed by and Reported on: NIGEL Hill (ASCP) 0872 This Pap test was evaluated with the assistance of the ThinPrep Test Imaging System. Due to cytologic findings at the measurement superintendent microscope, comprehensive manual rescreening by a Food Service Ambassador may be required. The Pap Smear is [...] years. END OF REPORT DEPARTMENT OF PATHOLOGY, [address] [place] [address] Phi Vazquez M.D. Director [facility] # [id number] Procedures Date Code Description Status 07/05/2019 85096 Biophysical Profile Without Non Stress Test Completed 07/05/2019 92183 Echography Uterus Follow-Up Or Repeat Completed 06/28/2019 73091 Biophysical Profile W/ NST Completed 06/28/2019 76185 Non-Stress Test Completed 06/22/2019 22896 Biophysical Profile Without Non Stress Test Completed 06/22/2019 98141 Echography Uterus Limited Completed 06/08/2019 97464 Biophysical Profile Without Non Stress Test Completed 06/08/2019 31081 Echography Uterus Follow-Up Or Repeat Completed 03/26/2019 68707 Echography Uterus Complete Completed 01/19/2019 46968 OB Ultrasound First Trimester Completed Medical Devices [...] Future Appointment(s):07/20/2019 2:00 pm - Nurses at [facility]07/20/2019 2: 30 pm - Ultrasounds at [facility]07/20/2019 3:00 pm - Abida Perez MD at [facility]08/28/2019 11:00 am - Abida Perez MD at [facility]08/01/2019 2 :00 pm - Danika Moncada CNM at [facility]07/25/2019 7:45 am - Abida Perez MD at [facility] [place] [place] O R Functional Status Description No Information Available Mental Status Description No Information Available Referrals Description No Information Available
--- OUTSIDE RECORDS SUMMARY | 2019-07-25 06:05 | XMS REPORT | Continuity of Care Document ---
:1985 External Reference #:[id number] Author Name Dennis Estes M.D. (transmitted by agent of provider Tha Goodson ) Address [address] [place] [address] Problems Active Problems Provider Date Multigravida Danika [...] CPT Code Status Date Vaccine Lot # [id number] Given 06/22/2019 Tetnus, Diptheria Toxoids And Acellular Pertussis, [id number] PT > 7Yrs Old [address] Given 08/10/2016 Tetnus, Diptheria Toxoids And Acellular Pertussis, [id number] PT > 7Yrs Old Vital Signs Date Vital Result Comment 01/19/2019 1:12pm BP Systolic 112 mmHg BP Diastolic 68 mmHg Height 65.50 inches 5'5.50" Weight 137.00 lb BMI (Body Mass Index) 22.4 kg/m2 Last Menstrual Period 7742127 2 Parity 1 12/15/2016 10:50am BP Systolic 108 mmHg BP Diastolic 68 mmHg Height 65.50 inches 5'5.50" Weight 152.00 lb BMI (Body Mass Index) 24.9 kg/m2 Last Menstrual Period 7102935 1 Parity 1 Results Test Acquired Date Facility Test Result H/L Range Note Laboratory test 06/01/2019 [facility] Glucose 1 HR 98 mg/dL Normal 70-160 [address] [place] [address] Post Prandial [phone] CBC With No 06/01/2019 [facility] White Blood 10.0 Normal 3.5- 10.8 [place] [address] Count 10^3/uL [phone] Red Blood Count 3.61 10^6/uL Low 3.70-4.87 [...] 03/26/2019 [facility] Interpretation: SEE NOTE 2 2([place]) Risk for Ontd <1:5000 Age Risk Down Syndrome 1:480 GUILLAUME Down Syndrome Risk <1:5000 <1:270 GUILLAUME Trisomy 18 Risk <1:5000 <1:100 Calc'd Gestational Age 19.9 Afp, Serum 52.4 ng/mL Afp MoM 0.90 3 hCG, Serum 21.3 IU/mL hCG MoM 1.02 Estriol, Free 1.73 ng/mL Estriol MoM 0.95 Inhibin A, Dimeric 151 pg/mL Inhibin A MoM 0.78 Elise-A 58209.5 ng/mL 4 Elise-A MoM 14.50 5 Referring Physician Name CHARLOTTE Referring Physician Phone ON TEST REQ ABOV <SEE NOTE> 6 Referring Physician Npi [id number] Specimen # from Part 1 [id number] Date of 1985 Collection Date 03/26/2019 Maternal Weight 137 lbs Est'd Date of Delivery 08/14/2019 Mother's Ethnic Origin Insulin Depend Diabetic NO Repeat Specimen NO Number of Fetuses 1 Hx Of Neural Tube Defects NOT GIVEN Cigarette smoker NO 7 Laboratory test 03/26/2019 [facility] Enhanced PDF Report SEE IMAGE finding [id number] Laboratory test 02/19/2019 [facility] Miscellaneous Test See Comment [address] [place] [address] [phone] Zika Screen Nysdoh 02/05/2019 [facility] Zika Screen Nysdoh, SEE RESULT 9 [place] [place] [address] Serum BELOW [phone] Zika Screen [facility], Urine SEE RESULT BELOW 10 Serum Integrated Screen, Part 1 ([place]) 02/02/2019 [facility] Comment: SEE NOTE 11 Referring Physician Name DANIKA MONCADA Referring Physician Phone ON ABOVE Referring Physician Npi [id number] Date of 1985 Collection Date 02/02/2019 Maternal Weight 137 lbs Est'd Date of Delivery 08/14/2019 EDITH Determined by LMP Mother's Ethnic Origin Number of Fetuses 1 Insulin Depend Diabetic NO Repeat Specimen NO Hx Of Neural Tube Defects NOT GIVEN Prev Down Synd NO Donor Egg NOT GIVEN Donor Age: Egg Retrieval NOT GIVEN Cigarette smoker NO Laboratory test 02/02/2019 [facility] Enhanced PDF SEE IMAGE finding Report [id number] Urine Culture And 01/19/2019 [facility] Urine Culture SEE RESULT 12 [place] [address] BELOW [phone] HIV 1&2 p24 01/19/2019 [facility] HIV 4th [place] [address] Generation [phone] Lead 01/19/2019 [facility] Lead,Venous, B < 1.0 g/dL 0.0- 4.9 13 [place] [address] [phone] Venous/Capillary Venous Submitting Laboratory Phone [phone] Type And Screen 01/19/2019 [facility] Patient [place] [address] [phone] Antibody Screen NEGATIVE CBC With No 01/19/2019 [facility] White Blood 8.9 10^3/uL Normal 3.5-10.8 [place] [address] Count [phone] Red Blood Count 4.06 10^6/uL Normal 3.70-4.87 Hemoglobin 12.9 g/dL Normal 12.0-16.0 Hematocrit 38 % Normal 35-47 Mean Corpuscular Volume 92 fL Normal 80-97 Mean Corpuscular Hemoglobin 32 pg High 27-31 Mean Corpuscular HGB Conc 34 g/dL Normal 31-36 Red Cell Distribution Width 13 % Normal 10-15 Platelet Count 241 10^3/uL Normal 150-450 Mean Platelet Volume 7.8 fL Normal 7.4-10.4 PNL No 01/19/2019 [facility] Rubella [place] [address] [phone] Hemoglobin A1c 5.3 % Normal 4.0-5.6 15 Hepatitis B Surface Ag Nonreactive Nonreactive Syphillis Igg W/Reflex RPR Negative Negative Laboratory test 01/19/2019 [facility] Enhanced PDF Report SEE IMAGE finding [id number] Sma Carrier Screen 01/19/2019 [facility] Technical Results NEGATIVE Negative 16 SMN1 2 COPIES SMN2 2 COPIES Interpretation SEE NOTE 17 Cfvantage(R) Cystic Fibrosis 01/19/2019 [facility] Ethnicity: Expanded SC CF Result NEGATIVE Negative 18 Interpretation SEE NOTE 19 Additional Information SEE NOTE 20 Mutations Analyzed SEE NOTE 21 GC/Chlamydia Dna 01/19/2019 [facility] Chlamydia [place] [address] trachomatis Esperanza [phone] Neisseria gonorrhoeae (GC) Esperanza Negative Negative Laboratory test 01/19/2019 [facility] Cytology SEE RESULT BELOW [address] [place] [address] [phone] 1 [id number] 2 SCREEN NEGATIVE FOR OPEN NTD, DOWN SYNDROME AND TRISOMY 18. 3 Reference Range: <2.50 IDD <1.90 TWINS <4.00 TWINS IDD <3.50 TRIPLETS <4.50 4 This test was performed using a kit that has not been cleared or approved by the FDA. The analytical performance characteristics of this test have been determined by [facility]. This test should not be [...] technique. Interpretation reviewed by: Sherley Baltazar, Ph.D., [facility]. 6 ON TEST REQ ABOVE 7 [...] . For additional information, please refer to http://Access Closure.Grassroots Unwired/faq/[email or web address] (This link is being provided for informational/educational purposes only.) 8 Test Result Flag Unit RefValue Controlled Substance Monitoring, U List Patient's Not Provided Current Medications ADDITIONAL INFORMATION Accuracy and completeness of declared medications on reports solely dependent on information submitted by client. Creatinine, U 23.2 mg/dL Specific Institute 1.006 pH 5.4 Oxidants Negative REFERENCE VALUE [...] Not Detected ng/mL Cutoff: 25 Tylenol 3 Wumwphc-8-tyff- Not Detected ng/mL glucuronide Metabolite of codeine REFERENCE VALUE Cutoff: 100 Morphine Not Detected ng/mL Cutoff: 25 Luana Ham MS Contin; Also a minor metabolite (10%) of codeine and can be seen in low concentrations (<2,000 ng/mL) with poppy seed ingestion. Tidvvzty-0-sgpv- Not Detected ng/mL glucuronide Metabolite of morphine REFERENCE VALUE Cutoff: 100 6-monoacetylmorphine Not Detected ng/mL Cutoff: 25 Metabolite of heroin Hydrocodone Not Detected ng/mL Cutoff: 25 Lortab, [place], Vicodin; Also a very minor metabolite of [...] Numorphan, Opana; Also a metabolite of oxycodone. Efpdjkrtctm-0-tvtw- Not Detected ng/mL glucuronide Metabolite of oxymorphone REFERENCE VALUE Cutoff: 100 Noroxymorphone Not Detected ng/mL Cutoff: 25 Metabolite of oxymorphone Fentanyl Not Detected ng/mL Cutoff: 2 Actiq, Duragesic, Fentora Norfentanyl Not Detected ng/mL Cutoff: 2 Metabolite of fentanyl Meperidine Not Detected ng/mL Cutoff: 25 Demerol Normeperidine Not Detected ng/mL Cutoff: 25 Metabolite of meperidine Naloxone Not Detected ng/mL Cutoff: 25 Narcan Yziffduk-9-gwjc- Not Detected ng/mL glucuronide Metabolite of naloxone [...] and its performance characteristics determined by [facility] in a manner consistent with CLIA requirements. [...] and its performance characteristics determined by [facility] in a manner consistent with CLIA requirements. This test has not been cleared or approved by the U.S. Food and Drug Administration. Test Performed by: [facility] [place] [address] [place] [address] Media Traffic Manager: Nadir Goodson M.D. Ph.D.; CLIA# [id number] 9 SEE RESULT BELOW Name: SHONDA ARREDONDO : [address]: Briseyda Lozano MD Acct: [id number] Unit: [id number] AGE: 33 Location: [facility] Re02/05/19 SEX: F Status: REG REF SPEC: [id number] VON: 02/05/[address]: Briseyda Lozano MD REQ: [id number] RECD: 02/05/19 STATUS: COMP _ SOURCE: SERUM SPDESC: ORDERED: Zika Josephine, S COMMENTS: [id number] Procedure Result Reported Site Zika Screen [facility], Serum Final 02/13/19- 0825 ML Zika [...] the absence of current or recent infection. [id number] collected: Negative Please see additional information about zika virus at: Fact Sheet for Patients: Understanding Results from theZika IgM Rapid Test http://Quantivo/wp-content/uploads//For-patients.p df Fact Sheet for Healthcare Providers: Interpreting Zika IgM Rapid Test Results http://Quantivo/wp-content/uploads//Sbd-taqkqn-zan e-workes.pdf For detailed test interpretation guidance, please visit: https://health.[place].gov/diseases/zika_virus/providers.htm CONTINUED ON NEXT PAGE DEPARTMENT OF PATHOLOGY, [address] [place] [address] Phi Vazquez M.D. Director [facility] # [id number] Patient: ARNULFOSHONDA [id number] (Continued) Specimen: [id number] Collected: 02/05/19 Received: 02/05/19 (Continued) Procedure Result Reported Site Zika Screen [facility] Final (continued) 02/13/19824 Flavivirus Polyvalent Microsphere Immunofluorescence Assay (IgG+IgM+IgA)* Results suggest the absence of Zika and dengue antibodies. If recent infection is suspected collect another specimen in three weeks. Zika Polyvalent Microsphere Immunofluorescence Assay [id number] collected 02/05/19Result:Non-Reactive Dengue Polyvalent Microsphere Immunofluorescence Assay [id number] collected 02/05/19Result:Non-Reactive * The performance characteristics of this test were determined by the [facility]. It has not been cleared or approved by the U.S.Food and Drug Administration. Cross reactivity frequently occurs in serologic testing. Test Performed by: [facility] [address] [place] [address] * ML - Main Lab . END OF REPORT DEPARTMENT OF PATHOLOGY, [address] [place] [address] Phi Vazquez M.D. Director [facility] # [id number] 10 SEE RESULT BELOW Name: ARNULFOSHONDA : [address]: Briseyda Lozano MD Acct: [id number] Unit: [id number] AGE: 33 Location: [facility] Re02/05/19 SEX: F Status: REG REF SPEC: [id number] VON: 02/05/19 [facility] DR: Briseyda Lozano MD REQ: [id number] RECD: 02/05/198 STATUS: COMP _ SOURCE: URINE SPDESC: ORDERED: Zika Screen, Ur COMMENTS: [id number] Procedure Result Reported Site Zika Screen [facility], Urine Final 02/13/19- 0826 ML Zika virus RNA by real-time RT-PCR*:NOT DETECTED * The performance characteristics of this test were determined by the [facility]. It has not been cleared or approved by the U.S.Food and Drug Administration. Cross reactivity frequently occurs in serologic testing. Test Performed by: [address] [address] * ML - Main Lab . END OF REPORT DEPARTMENT OF PATHOLOGY, [address] [place] [address] Phi Vazquez M.D. Director [facility] # [id number] 11 Thank you for submitting this patients Part 1 specimen. Please submit her Part 2 specimen between 02/20/2019-04/16/2019 (15.0 and 22.9 weeks gestation) with 02/20/2019-03/05/2019 (15.0 and 16.9 weeks gestation) being optimal. When submitting Part 2, please include the following Specimen # from Part 1: [id number] This test was developed and its analytical performance characteristics have been determined by [facility]. It has not been cleared or approved by FDA. This assay has been validated pursuant to the CLIA regulations and is used for clinical purposes. For additional information, please refer to http://education.Grocio.IdealSeat/faq/FAQ91 (This link is being provided for informational/educational purposes only.) It has been observed that patients who smoke cigarettes during may have a slightly increased risk of having a false positive GUILLAUME screen for Down Syndrome or trisomy 18. If you have questions concerning this report: For clinical consultation, call ; For technical questions, call ext [phone]; For recalculations, fax to [phone]. 12 SEE RESULT BELOW Name: SHONDA ARREDONDO : [address]: Xiomara Rivera CNM Acct: [id number] Unit: [id number] AGE: 33 Location: [facility] Re01/19/19 SEX: F Status: REG REF SPEC: [id number] VON: 01/19/[address]: Xiomara Rivera CNM REQ: [id number] RECD: 01/19/19 STATUS: COMP _ SOURCE: URINE [facility]: ORDERED: Urine Culture COMMENTS: [id number] Urine Source: Random Procedure Result Reported Site Urine Culture Final 01/20/19- 1629 ML No Growth (<1,000 CFU/mL) * ML - Main Lab . END OF REPORT DEPARTMENT OF PATHOLOGY, [address] [place] [address] Phi Vazquez M.D. Director [facility] # [id number] 13 ADDITIONAL INFORMATION Testing performed by Inductively Coupled Plasma-Mass Spectrometry (ICP-MS). This test was developed and its performance characteristics determined by [facility] in a manner consistent with CLIA requirements. This test has not been cleared or approved by the U.S. Food and Drug Administration. 14 Test Performed by: [facility] - [address] [address] Media Traffic Manager: Nadir Goodson M.D. Ph.D.; CLIA# [id number] 15 Therapeutic target for the treatment of diabetes mellitus patients is <7% HBA1C, and in selective patients <6.0%. Please refer to [place] Diabetes Association diabetic care guidelines for further [...] 41 1 in 350 1 in 4000 Mormonism 93% 1 in 53 1 in 628 1 in 5000 71% 1 in 66 1 in 121 1 in 3000 [place] 91% 1 in 117 1 in 1061 1 in [address] SUPPLEMENTAL INFORMATION Spinal muscular atrophy (SMA) is [...] genes (SMN1 and SMN2) recommended by the [place] [employer] (ACMG) for population-based SMA carrier screening. Health care providers, please contact your local [facility] genetic counselor or call [employer] at [facility] ([phone]) for assistance with the interpretation of these results. METHODOLOGY: The copy number of the SMA genes (SMN1 and SMN2) is detected by quantitative PCR. Although rare, false positive or false negative results may occur. All results should be interpreted in context of clinical findings, relevant history, and other laboratory data. Laboratory results and submitted clinical information reviewed by Shaggy Hinton, Ph.D., FACMG, [facility], [place]. This test was developed and its analytical performance characteristics have been determined by [facility]. It has not been cleared [...] currently unavailable for all mutations on the [employer]() Cystic Fibrosis Expanded Screen. Detection rates may be slightly higher and residual risk rates may be slightly lower than the figures in this table since the estimates are based on a subset of mutations. Racial/Ethnic Detection Carrier Carrier Group Rate, % Rate Risk Before After Testing Negative Test Result Ashkenazi Mormonism 95 05/11461 Non- 90 05/12 [place] 88 1376 78 292 [place] 53 Laboratory results and submitted clinical information reviewed by Omar Robledo MD, MHA, FACMG, CGMBS. 20 This assay detects the CF mutations listed below, including the twenty-three core mutations recommended by the [place] [employer] (ACMG) and the [place] [employer] Obstetricians and Gynecologists (ACOG) for [...] Health care providers, please contact your local [facility] genetic counselor or call at [employer] ([phone]) for assistance with interpretation of these results. [...] (c.595C>T), P205S (c.613C>T), L206W (c.617T>G), Q220X (c.658C>T), 595uhk38 (c.077qxv10), 935delA (c.803delA), 936delTA (c.805delAT), L499znb (c.933delCTT), 1078delT (c.948delT), G330X (c.988G>T), R334W (c.1000C>T), I336K (c.1007T>A), T338I (c.1013C>T), S341P (c.1021T>C), 1154insTC (c.1022insTC), 1161delC (c.1029delC), R347P (c.1040G>C), R347H (c.1040G>A), R352Q (c.1055G>A), 1213delT (c.1081delT), 1248+1G>A (c.1116+1G>A), 1259insA (c.1127insA), 1288insTA (c.1153insAT), W401X (c.1202G>A or c.1203G>A), 1341+1G>A (c.1209+1G>A), 2862csq4 (c.1329insAGAT), A455E (c.1364C>A), 1525-1G>A (c.1393-1G>A), S466X (c.1397C>A or c.1397C>G), L467P (c.1400T>C), 1548delG (c.1418delG), G480C (c.1438G>T), S489X (c.1466C>A), S492F (c.1475C>T), 1609delCA (c.1477delCA), Q493X (c.1477C>T), G426cpa (c.1519delATC), O551enc (c.1521delCTT), 1677delTA (c.1545delTA), V520F (c.1558G>T), C524X (c.1572C>A), Q525X (c.1573C>T), 1717-1G>A (c.1585-1G>A), 1717-8G>A (c.1585-8G>A), G542X (c.1624G>T), S549R (c.1645A>C or c.1647T>G), S549N (c.1646G>A), G551D (c.1652G>A), Q552X (c.1654C>T), R553X (c.1657C>T), A559T (c.1675G>A), R560K (c.1679G>A), R560T (c.1679G>C), 1811+1.6kbA>G (c.1679+1.6kbA>G), 1812-1G>A (c.1680-1G>A), P574H (c.1721C>A), D579G (c.1736A>G), E585X (c.1753G>T), 1898+1G>T (c.1766+1G>T), 1898+1G>A (c.1766+1G>A), 1898+3A>G (c.1766+3A>G), 1898+5G>T (c.1766+5G>T), 2043delG (c.1911delG), 6200uls7>A (c.6272pab2igwY), 2573adf83ayc7 (c.9901nrz25yrxTGMZG), 2108delA (c.1976delA), 2143delT (c.2011delT), 2183AA>G (c.2051delAAinsG), 2184insA (c.2052insA), 2184delA (c.2052delA), R709X (c.2125C>T), K710X (c.2128A>T), 2307insA (c.2175insA), L732X (c.2195T>G), 2347delG (c.2215delG), R764X (c.2290C>T), 2585delT (c.2453delT), E822X (c.2464G>T), 2622+1G>A (c.2490+1G>A), E831X (c.2491G>T), W846X (c.2537G>A), R851X (c.2551C>T), 2711delT (c.2583delT), 2789+5G>A (c.2657+5G>A), Q890X (c.2668C>T), 2869insG (c.2737insG), L927P (c.2780T>C), S945L (c.2834C>T), 3007delG (c.2875delG), G970R (c.2908G>C), 3120G>A (c.2988G>A), 3120+1G>A (c.2988+1G>A), 3121-1G>A (c.2989-1G>A), 3171delC (c.3039delC), 7612nwq1 (c.3067delATAGTG), 3272-26A>G (c.3140-26A>G), W3716N (c.3194T>C), X9707P (c.3196C>T), R5974S (c.3197G>A), X5166Z (c.3230T>C), T2590F (c.3266G>A), V1979Z (c.3276C>A or c.3276C>G), R2094R (c.3278T>C), U1196O (c.3302T>A), Q4465K (c.3310G>T), Z9313Z (c.3382A>T), L7907S (c.3435G>A), A3654M (c.3472C>T), V4723Y (c.3484C>T), 3659delC (c.3528delC), 0196vsl0 (c.3535delACCA), A8945B (c.3587C>G), X8999U (c.3611G>A or c.3612G>A), 3791delC (c.3659delC), 3821delT (c.3691delT), R2132J (c.3700A>G), S4722L (c.3712C>T), 3849+10kbC>T (c.3717+98599U>T), O4338L (c.3731G>A), 3876delA (c.3744delA), P7857I (c.3752G>A), L3983Y (c.3764C>A), 3905insT (c.3773insT), W1526U (c.3846G>A), Z6401Y (c.3848G>T), 4005+1G>A (c.3873+1G>A), 4016insT (c.3884insT), M4742G (c.3909C>G), Q2619A (c.3937C>T), UPDZgyla07,23, 4209TGTT>AA (c.4077delTGTTinsAA), 4382delA (c.4251delA) This test was developed and its analytical performance characteristics have been determined by [facility]. It has not been cleared or approved by FDA. This assay has been validated pursuant to the CLIA regulations and is used for clinical purposes. For additional information, please refer to http://education.Grocio.IdealSeat/faq/CGS066 (This link is being provided for information/educational purposes only.) 22 SEE RESULT BELOW Name: SHONDA ARREDONDO : [address]: Xiomara Rivera CNM Acct: [id number] Unit: [id number] AGE: 33 Location: [facility] Re01/19/19 SEX: F Status: REG REF SPEC: [id number] VON: 01/19/19-[address]: Xiomara Rivera CNM REQ: [id number] RECD: 01/22/19 STATUS: SOUT _ ORDERED: TP IMAGE ANALYS, HPV/Thin Prep COMMENTS: [id number] FINAL DIAGNOSIS Negative for Intraepithelial lesion or [...] CONTINUED ON NEXT PAGE DEPARTMENT OF PATHOLOGY, [address] [place] [address] Phi Vazquez M.D. Director [facility] # [id number] Previous Abnormal Pap Smears?:N Signed by and Reported on: NIGEL Hill (ASCP) 1706 This Pap test was evaluated with the assistance of the ThinPrep Test Imaging System. Due to cytologic findings at the welder repair microscope, comprehensive manual rescreening by a Warehouse Worker 2Nd Shift may be required. The Pap Smear is [...] years. END OF REPORT DEPARTMENT OF PATHOLOGY, [address] [place] [address] Phi Vazquez M.D. Director [facility] # [id number] Procedures Date Code Description Status 06/22/2019 50110 Biophysical Profile Without Non Stress Test Completed 06/22/2019 90046 Echography Uterus Limited Completed 06/08/2019 14455 Biophysical Profile Without Non Stress Test Completed 06/08/2019 71748 Echography Uterus Follow-Up Or Repeat Completed 03/26/2019 29528 Echography Uterus Complete Completed 01/19/2019 45347 OB Ultrasound First Trimester Completed Medical Devices Description No Information Available Encounters Description No Information Available Assessments Date Code Description Provider 06/22/2019 O44.13 Complete placenta previa with hemorrhage, [...] Complete placenta previa NOS or without Xiomara Stork, CNM hemorrhage, third trimester 06/08/2019 O44.02 Complete [...] Ultrasounds first trimester Plan of Treatment Future Appointment(s):07/06/2019 2:45 pm - Mary Ann Rios MD at [facility] Functional Status Description No Information Available Mental Status Description No Information Available Referrals Description No Information Available
--- OUTSIDE RECORDS SUMMARY | 2019-07-25 06:05 | XMS REPORT | Continuity of Care Document ---
:1985 External Reference #:[id number] Author Name Ricci Rudolph JR, DO (transmitted by agent of provider Makayla Serrano) Address [address] [facility] [place] [address] Problems Active Problems Provider Date Multigravida Danika [...] CPT Code Status Date Vaccine Lot # [id number] Given 06/22/2019 Tetnus, Diptheria Toxoids And Acellular Pertussis, [id number] PT > 7Yrs Old 10291 Given 08/10/2016 Tetnus, Diptheria Toxoids And Acellular Pertussis, [id number] PT > 7Yrs Old Vital Signs Date Vital Result Comment 01/19/2019 1:12pm BP Systolic 112 mmHg BP Diastolic 68 mmHg Height 65.50 inches 5'5.50" Weight 137.00 lb BMI (Body Mass Index) 22.4 kg/m2 Last Menstrual Period 1730676 2 Parity 1 12/15/2016 10:50am BP Systolic 108 mmHg BP Diastolic 68 mmHg Height 65.50 inches 5'5.50" Weight 152.00 lb BMI (Body Mass Index) 24.9 kg/m2 Last Menstrual Period 4344160 1 Parity 1 Results Test Acquired Date Facility Test Result H/L Range Note Laboratory test 07/11/2019 [facility] Genital For SEE RESULT 1 [place] [address] GRP B Strep BELOW [phone] Only Laboratory test 06/01/2019 [facility] Glucose 1 HR 98 mg/dL Normal 70-160 2 [place] [address] Post Prandial [phone] CBC With No 06/01/2019 [facility] White Blood 10.0 Normal 3.5- 10.8 [place] [address] Count 10^3/uL [phone] Red Blood Count 3.61 10^6/uL Low 3.70-4.87 [...] Part 03/26/2019 [facility] Interpretation: SEE NOTE 3 2(MA) Risk for Ontd <1:5000 Age Risk Down Syndrome 1:480 GUILLAUME Down Syndrome Risk <1:5000 <1:270 GUILLAUME Trisomy 18 Risk <1:5000 <1:100 Calc'd Gestational Age 19.9 Afp, Serum 52.4 ng/mL Afp MoM 0.90 4 hCG, Serum 21.3 IU/mL hCG MoM 1.02 Estriol, Free 1.73 ng/mL Estriol MoM 0.95 Inhibin A, Dimeric 151 pg/mL Inhibin A MoM 0.78 Elise-A 09332.5 ng/mL 5 Elise-A MoM 14.50 6 Referring Physician Name PERRYRALD Referring Physician Phone ON TEST REQ ABOV <SEE NOTE> 7 Referring Physician Npi [id number] Specimen # from Part 1 [id number] Date of 1985 Collection Date 03/26/2019 Maternal Weight 137 lbs Est'd Date of Delivery 08/14/2019 Mother's Ethnic Origin Insulin Depend Diabetic NO Repeat Specimen NO Number of Fetuses 1 Hx Of Neural Tube Defects NOT GIVEN Cigarette smoker NO 8 Laboratory test 03/26/2019 [facility] Enhanced PDF Report SEE IMAGE finding [id number] Laboratory test 02/19/2019 [facility] Miscellaneous Test See Comment 9 [place] [address] [phone] Zika Screen Nysdoh 02/05/2019 [facility] Zika Screen Nysdoh, SEE RESULT 10 [place] [place] [address] Serum BELOW [phone] Zika Screen Nysdoh, Urine SEE RESULT BELOW 11 Laboratory test finding 02/02/2019 [facility] Enhanced PDF Report SEE IMAGE [id number] Serum Integrated 02/02/2019 [facility] Comment: SEE NOTE 12 Screen, Part 1 (MA) Referring Physician Name DANIKA MONCADA Referring Physician Phone ON ABOVE Referring Physician Npi [id number] Date of 1985 Collection Date 02/02/2019 Maternal Weight 137 lbs Est'd Date of Delivery 08/14/2019 EDITH Determined by LMP Mother's Ethnic Origin Number of Fetuses 1 Insulin Depend Diabetic NO Repeat Specimen NO Hx Of Neural Tube Defects NOT GIVEN Prev Down Synd NO Donor Egg NOT GIVEN Donor Age: Egg Retrieval NOT GIVEN Cigarette smoker NO Urine Culture 01/19/2019 [facility] Urine SEE RESULT [address] [place] [address] Culture BELOW Sensitivities [phone] HIV 1&2 p24 01/19/2019 [facility] HIV 4th [place] [address] Generation [phone] Lead 01/19/2019 [facility] Lead,Venous, < 1.0 g/dL 0.0-4.9 14 [place] [address] B [phone] Venous/Capillary Venous Submitting Laboratory Phone [phone] Type And Screen 01/19/2019 [facility] Patient [place] [address] [phone] Antibody Screen NEGATIVE CBC With No 01/19/2019 [facility] White Blood 8.9 10^3/uL Normal 3.5-10.8 [place] [address] Count [phone] Red Blood Count 4.06 10^6/uL Normal 3.70-4.87 Hemoglobin 12.9 g/dL Normal 12.0-16.0 Hematocrit 38 % Normal 35-47 Mean Corpuscular Volume 92 fL Normal 80-97 Mean Corpuscular Hemoglobin 32 pg High 27-31 Mean Corpuscular HGB Conc 34 g/dL Normal 31-36 Red Cell Distribution Width 13 % Normal 10-15 Platelet Count 241 10^3/uL Normal 150-450 Mean Platelet Volume 7.8 fL Normal 7.4-10.4 PNL No 01/19/2019 [facility] Rubella Screen [place] [address] [phone] Hemoglobin A1c 5.3 % Normal 4.0-5.6 16 Hepatitis B Surface Ag Nonreactive Nonreactive Syphillis Igg W/Reflex RPR Negative Negative Laboratory test 01/19/2019 [facility] Enhanced PDF Report SEE IMAGE finding [id number] Sma Carrier Screen 01/19/2019 [facility] Technical Results NEGATIVE Negative 17 SMN1 2 COPIES SMN2 2 COPIES Interpretation SEE NOTE 18 Cfvantage(R) Cystic Fibrosis 01/19/2019 [facility] Ethnicity: Expanded SC CF Result NEGATIVE Negative 19 Interpretation SEE NOTE 20 Additional Information SEE NOTE 21 Mutations Analyzed SEE NOTE 22 GC/Chlamydia Dna 01/19/2019 [facility] Chlamydia [place] [address] trachomatis Esperanza [phone] Neisseria gonorrhoeae (GC) Esperanza Negative Negative Laboratory test 01/19/2019 [facility] Cytology SEE RESULT BELOW [address] [place] [address] [phone] 1 SEE RESULT BELOW Name: SHONDA ARREDONDO : [address]: Ricci Rudolph DO Acct: [id number] Unit: [id number] AGE: 33 Location: [facility] Re07/11/19 SEX: F Status: REG REF SPEC: [id number] VON: 07/11/19-[address]: Ricci Rudolph DO REQ: [id number] RECD: 07/11/19 STATUS: COMP _ SOURCE: RAJ/ANEESH/RE SPDESC: ORDERED: Blanca Felder Scrn COMMENTS: [id number] QUERIES: Is Patient Penicillin Allergic? N Is patient penicillin allergic and/or sensitivities needed? N Provider Requisition # C77#[id number]_ Procedure Result Reported Site Group B Strep Culture Screen Final 07/13/19- 0809 ML Group B Strep Screen Negative * ML - Main Lab . END OF REPORT DEPARTMENT OF PATHOLOGY, [address] [place] [address] Phi Vazquez M.D. Director [facility] # [id number] 2 [id number] SCREEN NEGATIVE FOR OPEN NTD, DOWN SYNDROME AND TRISOMY 18. 4 Reference Range: <2.50 IDD <1.90 TWINS <4.00 TWINS IDD <3.50 TRIPLETS <4.50 5 This test was performed using a kit that has not been cleared or approved by the FDA. The analytical performance characteristics of this test have been determined by [facility]. This test should not be used for diagnosis without confirmation by other medically established means. 6 The Serum Integrated Screen combines ELISE-A in [...] technique. Interpretation reviewed by: Sherley Baltazar, Ph.D., [facility]. 7 ON TEST REQ ABOVE 8 This is a screening test, not a [...] call ; For technical questions, call ext [phone]; For recalculations, fax to . For additional information, please refer to http://education.Utopia/faq/FAQ93 (This link is being provided for informational/educational purposes only.) 9 Test Result Flag Unit RefValue Controlled Substance Monitoring, U List Patient's Not Provided Current Medications ADDITIONAL INFORMATION Accuracy and completeness of declared medications on reports solely dependent on information submitted by client. Creatinine, U 23.2 mg/dL Specific [place] 1.006 pH 5.4 Oxidants Negative REFERENCE VALUE [...] Not Detected ng/mL Cutoff: 25 Tylenol 3 Wyoikez-6-ffop- Not Detected ng/mL glucuronide Metabolite of codeine REFERENCE VALUE Cutoff: 100 Morphine Not Detected ng/mL Cutoff: 25 Luana Ham MS Contin; Also a minor metabolite (10%) of codeine and can be seen in low concentrations (<2,000 ng/mL) with poppy seed ingestion. Vprdhmng-3-jtqv- Not Detected ng/mL glucuronide Metabolite of morphine REFERENCE VALUE Cutoff: 100 6-monoacetylmorphine Not Detected ng/mL Cutoff: 25 Metabolite of heroin Hydrocodone Not Detected ng/mL Cutoff: 25 Lortab, [place], Vicodin; Also a very minor metabolite of [...] Numorphan, Opana; Also a metabolite of oxycodone. Ouguijxuysy-8-krgt- Not Detected ng/mL glucuronide Metabolite of oxymorphone REFERENCE VALUE Cutoff: 100 Noroxymorphone Not Detected ng/mL Cutoff: 25 Metabolite of oxymorphone Fentanyl Not Detected ng/mL Cutoff: 2 Actiq, Duragesic, [place] Norfentanyl Not Detected ng/mL Cutoff: 2 Metabolite of fentanyl Meperidine Not Detected ng/mL Cutoff: 25 Demerol Normeperidine Not Detected ng/mL Cutoff: 25 Metabolite of meperidine Naloxone Not Detected ng/mL Cutoff: 25 Narcan Qclayefr-3-tqrg- Not Detected ng/mL glucuronide Metabolite of naloxone [...] its performance characteristics determined by [facility] in a manner consistent with CLIA [...] its performance characteristics determined by [facility] in a manner consistent with CLIA requirements. This test has not been cleared or approved by the U.S. Food and Drug Administration. Test Performed by: [facility] [place] [address] Print Decorator: Nadir Goodson M.D. Ph.D.; CLIA# [id number] 10 SEE RESULT BELOW Name: SHONDA ARREDONDO : [address]: Briseyda Lozano MD Acct: [id number] Unit: [id number] AGE: 33 Location: [facility] Re02/05/19 SEX: F Status: REG REF SPEC: [id number] VON: 02/05/19 [facility] DR: Briseyda Lozano MD REQ: [id number] RECD: 02/05/19 STATUS: COMP _ SOURCE: SERUM SPDESC: ORDERED: Zika Screen, S COMMENTS: [id number] Procedure Result Reported Site Zika Screen [facility], Serum Final 02/13/19- 25 ML Zika virus RNA by real-time RT-PCR*:NOT [...] the absence of current or recent infection. [id number] collected: Negative Please see additional information about zika virus at: Fact Sheet for Patients: Understanding Results from theZika IgM Rapid Test http://CoScale.Woto/wp-content/uploads//For-patients.p df Fact Sheet for Healthcare Providers: Interpreting Zika IgM Rapid Test Results http://[employer]/wp-content/uploads//Tdl-hlmtuj-umv e-workes.pdf For detailed test interpretation guidance, please visit: https://health.[place].gov/diseases/zika_virus/providers.htm CONTINUED ON NEXT PAGE DEPARTMENT OF PATHOLOGY, [address] [place] [address] Phi Vazquez M.D. Director [facility] # [id number] Patient: SHONDA ARREDONDO [id number] (Continued) Specimen: [id number] Collected: 02/05/19 Received: 02/05/19 (Continued) Procedure Result Reported Site Zika Screen [facility], Serum Final (continued) 02/13/19- 824 Flavivirus Polyvalent Microsphere Immunofluorescence Assay (IgG+IgM+IgA)* Results suggest the absence of Zika and dengue antibodies. If recent infection is suspected collect another specimen in three weeks. Zika Polyvalent Microsphere Immunofluorescence Assay [id number] collected 02/05/19Result:Non-Reactive Dengue Polyvalent Microsphere Immunofluorescence Assay [id number] collected 02/05/19Result:Non-Reactive * The performance characteristics of this test were determined by the [facility]. It has not been cleared or approved by the U.S.Food and Drug Administration. Cross reactivity frequently occurs in serologic testing. Test Performed by: [place] [address] * - [facility] . END OF REPORT DEPARTMENT OF PATHOLOGY, [address] [place] [address] Phi Vazquez M.D. Director [facility] # [id number] 11 SEE RESULT BELOW Name: SHONDA ARREDONDO : [address]: Briseyda Lozano MD Acct: [id number] Unit: [id number] AGE: 33 Location: [facility] Re02/05/19 SEX: F Status: REG REF SPEC: [id number] VON: 02/05/19 [facility] DR: Briseyda Lozano MD REQ: [id number] RECD: 02/05/19 STATUS: COMP _ SOURCE: URINE SPDESC: ORDERED: Zika Screen, Ur COMMENTS: [id number] Procedure Result Reported Site Zika Screen [facility], Urine Final 02/13/19- 825 ML Zika virus RNA by real-time RT-PCR*:NOT DETECTED * The performance characteristics of this test were determined by the [facility]. It has not been cleared or approved by the U.S.Food and Drug Administration. Cross reactivity frequently occurs in serologic testing. Test Performed by: [facility] of [address] [address] * - [facility] . END OF REPORT DEPARTMENT OF PATHOLOGY, [address] [place] [address] Phi Vazquez M.D. Director [facility] # [id number] 12 Thank you for submitting this patients Part 1 specimen. Please submit her Part 2 specimen between 02/20/2019-04/16/2019 (15.0 and 22.9 weeks gestation) with 02/20/2019-03/05/2019 (15.0 and 16.9 weeks gestation) being optimal. When submitting Part 2, please include the following Specimen # from Part 1: [id number] This test was developed and its analytical performance characteristics have been determined by [facility]. It has not been cleared or approved by FDA. This assay has been validated pursuant to the CLIA regulations and is used for clinical purposes. For additional information, please refer to http://education.Utopia/faq/FAQ91 (This link is being provided for informational/educational purposes only.) It has been observed that patients who smoke cigarettes during may have a slightly increased risk of having a false positive GUILLAUME screen for Down Syndrome or trisomy 18. If you have questions concerning this report: For clinical consultation, call ; For technical questions, call ext [phone]; For recalculations, fax to [phone]. 13 SEE RESULT BELOW Name: SHONDA ARREDONDO : [address]: Xiomara Rivera CNM Acct: [id number] Unit: [id number] AGE: 33 Location: [facility] Re01/19/19 SEX: F Status: REG REF SPEC: [id number] VON: 01/19/[address]: TOSHIA Charles REQ: [id number] RECD: 01/19/19 STATUS: COMP _ SOURCE: URINE SPDESC: ORDERED: Urine Culture COMMENTS: [id number] Urine Source: Random Procedure Result Reported Site Urine Culture Final 01/20/19- 1629 ML No Growth (<1,000 CFU/mL) * ML - Main Lab . END OF REPORT DEPARTMENT OF PATHOLOGY, [address] [place] [address] Phi Vazquez M.D. Director [facility] # [id number] 14 ADDITIONAL INFORMATION Testing performed by Inductively Coupled Plasma-Mass Spectrometry (ICP-MS). This test was developed and its performance characteristics determined by [facility] in a manner consistent with CLIA requirements. This test has not been cleared or approved by the U.S. Food and Drug Administration. 15 Test Performed by: [facility] - [address] [address] Print Decorator: Nadir Goodson M.D. Ph.D.; CLIA# [id number] 16 Therapeutic target for the treatment of diabetes mellitus patients is <7% HBA1C, and in selective patients <6.0%. Please refer to [place] [employer] Association diabetic care guidelines for further information. 17 NEGATIVE; AT LEAST TWO COPIES OF THE SMN1 GENE DETECTED 18 This analysis identified at least two (2) [...] 41 1 in 350 1 in 4000 Jainism 93% 1 in 53 1 in 628 1 in 5000 71% 1 in 66 1 in 121 1 in 3000 Spanish 91% 1 in 117 1 in 1061 1 in [address] SUPPLEMENTAL INFORMATION Spinal muscular atrophy (SMA) is [...] genes (SMN1 and SMN2) recommended by the [employer] (ACMG) for population-based SMA carrier screening. Health care providers, please contact your local [facility] genetic counselor or call [facility] Client Services at [facility] ([phone]) for assistance with the interpretation of these results. METHODOLOGY: The copy number of the SMA genes (SMN1 and SMN2) is detected by quantitative PCR. Although rare, false positive or false negative results may occur. All results should be interpreted in context of clinical findings, relevant history, and other laboratory data. Laboratory results and submitted clinical information reviewed by Shaggy Hinton, Ph.D., FAC, [facility]uan[facility], YONI. This test was developed and its analytical performance characteristics have been determined by [facility]. It has not been cleared or approved by FDA. This assay has been validated pursuant to the CLIA regulations and is used for clinical purposes. 19 NEGATIVE; NONE OF THE MUTATIONS LISTED BELOW WERE DETECTED 20 This result does not rule out the [...] currently unavailable for all mutations on the [place] [employer](TM) Cystic Fibrosis Expanded Screen. Detection rates may be slightly higher and residual risk rates may be slightly lower than the figures in this table since the estimates are based on a subset of mutations. Racial/Ethnic Detection Carrier Carrier Group Rate, % Rate Risk Before After Testing Negative Test Result Ashkenazi Jainism 95 05/11461 Non- 90 05/12 Spanish 88 1376 78 292 Spanish 53 Laboratory results and submitted clinical information reviewed by Omar Robledo MD, MHA, FACMG, CGMBS. 21 This assay detects the CF mutations listed below, including the twenty-three core mutations recommended by the [place] [employer] (ACMG) and the [place] [employer] Obstetricians [employer] Gynecologists (ACOG) for [...] Health care providers, please contact your local [facility] genetic counselor or call at [facility] ([phone]) for assistance with interpretation of these results. 22 M1V (c.1A>G), CFTRdele2,3, Q39X (c.115C>T), 296+2T>A (c.164+2T>A), [...] (c.595C>T), P205S (c.613C>T), L206W (c.617T>G), Q220X (c.658C>T), 875vqq97 (c.203vcy35), 935delA (c.803delA), 936delTA (c.805delAT), R064dih (c.933delCTT), 1078delT (c.948delT), G330X (c.988G>T), R334W (c.1000C>T), I336K (c.1007T>A), T338I (c.1013C>T), S341P (c.1021T>C), 1154insTC (c.1022insTC), 1161delC (c.1029delC), R347P (c.1040G>C), R347H (c.1040G>A), R352Q (c.1055G>A), 1213delT (c.1081delT), 1248+1G>A (c.1116+1G>A), 1259insA (c.1127insA), 1288insTA (c.1153insAT), W401X (c.1202G>A or c.1203G>A), 1341+1G>A (c.1209+1G>A), 2707rnk0 (c.1329insAGAT), A455E (c.1364C>A), 1525-1G>A (c.1393-1G>A), S466X (c.1397C>A or c.1397C>G), L467P (c.1400T>C), 1548delG (c.1418delG), G480C (c.1438G>T), S489X (c.1466C>A), S492F (c.1475C>T), 1609delCA (c.1477delCA), Q493X (c.1477C>T), R738sjx (c.1519delATC), Y826swf (c.1521delCTT), 1677delTA (c.1545delTA), V520F (c.1558G>T), C524X (c.1572C>A), Q525X (c.1573C>T), 1717-1G>A (c.1585-1G>A), 1717-8G>A (c.1585-8G>A), G542X (c.1624G>T), S549R (c.1645A>C or c.1647T>G), S549N (c.1646G>A), G551D (c.1652G>A), Q552X (c.1654C>T), R553X (c.1657C>T), A559T (c.1675G>A), R560K (c.1679G>A), R560T (c.1679G>C), 1811+1.6kbA>G (c.1679+1.6kbA>G), 1812-1G>A (c.1680-1G>A), P574H (c.1721C>A), D579G (c.1736A>G), E585X (c.1753G>T), 1898+1G>T (c.1766+1G>T), 1898+1G>A (c.1766+1G>A), 1898+3A>G (c.1766+3A>G), 1898+5G>T (c.1766+5G>T), 2043delG (c.1911delG), 7446tbi6>A (c.9007jdt3tcjI), 0472ioa48ydy1 (c.4783ryi90nszIFUUC), 2108delA (c.1975delA), 2143delT (c.2011delT), 2183AA>G (c.205elAAinsG), 2184insA (c.2051insA), 2184delA (c.2052delA), R709X (c.2125C>T), K710X (c.2128A>T), 2307insA (c.2175insA), L732X (c.2195T>G), 2347delG (c.2215delG), R764X (c.2290C>T), 2585delT (c.2453delT), E822X (c.2464G>T), 2622+1G>A (c.2490+1G>A), E831X (c.2491G>T), W846X (c.2537G>A), R851X (c.2551C>T), 2711delT (c.2583delT), 2789+5G>A (c.2657+5G>A), Q890X (c.2668C>T), 2869insG (c.2737insG), L927P (c.2780T>C), S945L (c.2834C>T), 3007delG (c.2875delG), G970R (c.2908G>C), 3120G>A (c.2988G>A), 3120+1G>A (c.2988+1G>A), 3121-1G>A (c.2989-1G>A), 3171delC (c.3039delC), 7360zea7 (c.3067delATAGTG), 3272-26A>G (c.3140-26A>G), D7127Q (c.3194T>C), V6301L (c.3196C>T), D9271E (c.3197G>A), T2398W (c.3230T>C), C0095N (c.3266G>A), U3985C (c.3276C>A or c.3276C>G), P2524X (c.3278T>C), Z3675H (c.3302T>A), B8340B (c.3310G>T), S1985I (c.3382A>T), G9869C (c.3435G>A), F8888Y (c.3472C>T), P9703Y (c.3484C>T), 3659delC (c.3528delC), 3775qto6 (c.3535delACCA), D3231Z (c.3587C>G), M0813G (c.3611G>A or c.3612G>A), 3791delC (c.3659delC), 3821delT (c.3691delT), B0332P (c.3700A>G), N9200F (c.3712C>T), 3849+10kbC>T (c.3717+16546N>T), D7684H (c.3731G>A), 3876delA (c.3744delA), I5655W (c.3752G>A), U7724N (c.3764C>A), 3905insT (c.3773insT), N6121Q (c.3846G>A), I8027E (c.3848G>T), 4005+1G>A (c.3873+1G>A), 4016insT (c.3884insT), O5947Z (c.3909C>G), Z3002J (c.3937C>T), GRFRrlrg99,23, 4209TGTT>AA (c.4077delTGTTinsAA), 4382delA (c.4251delA) This test was developed and its analytical performance characteristics have been determined by [facility]. It has not been cleared or approved by FDA. This assay has been validated pursuant to the CLIA regulations and is used for clinical purposes. For additional information, please refer to http://education.10sec.Woto/faq/ODN998 (This link is being provided for information/educational purposes only.) 23 SEE RESULT BELOW Name: SHONDA ARREDONDO : [address]: Xiomara Rivera CNM Acct: [id number] Unit: [id number] AGE: 33 Location: [facility] Re01/19/19 SEX: F Status: REG REF SPEC: [id number] VON: 01/19/[address]: Xiomara Rivera CNM REQ: [id number] RECD: 01/22/19 STATUS: SOUT _ ORDERED: TP IMAGE ANALYS, HPV/Thin Prep COMMENTS: [id number] FINAL DIAGNOSIS Negative for Intraepithelial lesion or [...] CONTINUED ON NEXT PAGE DEPARTMENT OF PATHOLOGY, [facility] [address] [place] [address] Phi Vazquez M.D. Director [facility] # [id number] Previous Abnormal Pap Smears?:N Signed by and Reported on: NIGEL Hill (ASCP) 1432 This Pap test was evaluated with the assistance of the Sproomp Test Imaging System. Due to cytologic findings at the aviation safety inspector microscope, comprehensive manual rescreening by a Boat Officer may be required. The Pap Smear is [...] years. END OF REPORT DEPARTMENT OF PATHOLOGY, [facility] [address] [place], [place] [address] Phi Vazquez M.D. Director [facility] # [id number] Procedures Date Code Description Status 07/05/2019 03224 Biophysical Profile Without Non Stress Test Completed 07/05/2019 56049 Echography Uterus Follow-Up Or Repeat Completed 06/28/2019 97348 Biophysical Profile W/ NST Completed 06/28/2019 85016 Non-Stress Test Completed 06/22/2019 46006 Biophysical Profile Without Non Stress Test Completed 06/22/2019 93288 Echography Uterus Limited Completed 06/08/2019 36919 Biophysical Profile Without Non Stress Test Completed 06/08/2019 02485 Echography Uterus Follow-Up Or Repeat Completed 03/26/2019 82873 Echography Uterus Complete Completed 01/19/2019 54743 OB Ultrasound First Trimester Completed Medical Devices Description No Information Available Encounters Description No Information Available Assessments Date Code Description Provider 07/11/2019 O44.03 Complete placenta previa NOS or [...] placenta previa NOS or without Ricci Rudolph JR DO hemorrhage, second trimester 06/08/2019 O44.03 Complete [...] for supervision of other normal Maryanne Pappas, LUIS , second trimester 02/05/2019 Z36.9 Encounter for [...] Future Appointment(s):07/20/2019 2:00 pm - Nurses at [facility]07/20/2019 2: 30 pm - Ultrasounds at [facility]07/20/2019 3:00 pm - Abida Perez MD at [facility]08/28/2019 11:00 am - Abida Perez MD at [facility]08/01/2019 2 :00 pm - Danika Moncada CNM at [facility]07/25/2019 7:45 am - [place] [facility] [place] Functional Status Description No Information Available Mental Status Description No Information Available Referrals Description No Information Available
--- OUTSIDE RECORDS SUMMARY | 2019-07-25 06:05 | XMS REPORT | Continuity of Care Document ---
:1985 External Reference #:[id number] Author Name Mary Ann Rios MD (transmitted by agent of provider Makayla Serrano) Address [address] [place] [id number] Problems Active Problems Provider Date Multigravida Danika [...] CPT Code Status Date Vaccine Lot # [id number] Given 06/22/2019 Tetnus, Diptheria Toxoids And Acellular Pertussis, [id number] PT > 7Yrs Old [address] Given 08/10/2016 Tetnus, Diptheria Toxoids And Acellular Pertussis, [id number] PT > 7Yrs Old Vital Signs Date Vital Result Comment 01/19/2019 1:12pm BP Systolic 112 mmHg BP Diastolic 68 mmHg Height 65.50 inches 5'5.50" Weight 137.00 lb BMI (Body Mass Index) 22.4 kg/m2 Last Menstrual Period 8503246 2 Parity 1 12/15/2016 10:50am BP Systolic 108 mmHg BP Diastolic 68 mmHg Height 65.50 inches 5'5.50" Weight 152.00 lb BMI (Body Mass Index) 24.9 kg/m2 Last Menstrual Period 5391086 1 Parity 1 Results Test Acquired Date Facility Test Result H/L Range Note Laboratory test 07/11/2019 [facility] Genital For SEE RESULT 1 [place] [address] GRP B Strep BELOW [phone] Only Laboratory test 06/01/2019 [facility] Glucose 1 HR 98 mg/dL Normal 70-160 2 [place] [address] Post Prandial [phone] CBC With No 06/01/2019 [facility] White Blood 10.0 Normal 3.5- 10.8 [place] [address] Count 10^3/uL [phone] Red Blood Count 3.61 10^6/uL Low 3.70-4.87 [...] 03/26/2019 [facility] Interpretation: SEE NOTE 3 2(IN) Risk for Ontd <1:5000 Age Risk Down Syndrome 1:480 GUILLAUME Down Syndrome Risk <1:5000 <1:270 GUILLAUME Trisomy 18 Risk <1:5000 <1:100 Calc'd Gestational Age 19.9 Afp, Serum 52.4 ng/mL Afp MoM 0.90 4 hCG, Serum 21.3 IU/mL hCG MoM 1.02 Estriol, Free 1.73 ng/mL Estriol MoM 0.95 Inhibin A, Dimeric 151 pg/mL Inhibin A MoM 0.78 Elise-A 31933.5 ng/mL 5 Elise-A MoM 14.50 6 Referring Physician Name CHARLOTTE Referring Physician Phone ON TEST REQ ABOV <SEE NOTE> 7 Referring Physician Npi [id number] Specimen # from Part 1 [id number] Date of 1985 Collection Date 03/26/2019 Maternal Weight 137 lbs Est'd Date of Delivery 08/14/2019 Mother's Ethnic Origin Insulin Depend Diabetic NO Repeat Specimen NO Number of Fetuses 1 Hx Of Neural Tube Defects NOT GIVEN Cigarette smoker NO 8 Laboratory test 03/26/2019 [facility] Enhanced PDF Report SEE IMAGE finding [id number] Laboratory test 02/19/2019 [facility] Miscellaneous Test See Comment 9 [place] [address] [phone] Zika Screen Nysdoh 02/05/2019 [facility] Zika Screen Nysdoh, SEE RESULT 10 ([facility] [place] [place] [address] Serum BELOW [phone] Zika Screen Nysdoh, Urine SEE RESULT BELOW 11 Laboratory test finding 02/02/2019 [facility] Enhanced PDF Report SEE IMAGE [id number] Serum Integrated 02/02/2019 [facility] Comment: SEE NOTE 12 Screen, Part 1 (IN) Referring Physician Name DANIKA MONCADA Referring Physician Phone ON ABOVE Referring Physician Npi [id number] Date of 1985 Collection Date 02/02/2019 Maternal Weight 137 lbs Est'd Date of Delivery 08/14/2019 EDITH Determined by LMP Mother's Ethnic Origin Number of Fetuses 1 Insulin Depend Diabetic NO Repeat Specimen NO Hx Of Neural Tube Defects NOT GIVEN Prev Down Synd NO Donor Egg NOT GIVEN Donor Age: Egg Retrieval NOT GIVEN Cigarette smoker NO Urine Culture 01/19/2019 [facility] Urine SEE RESULT 13 [place] [address] Culture BELOW Sensitivities [phone] HIV 1&2 p24 01/19/2019 [facility] HIV 4th [place] [address] Generation [phone] Lead 01/19/2019 [facility] Lead,Venous, < 1.0 g/dL 0.0-4.9 14 [place] [address] B [phone] Venous/Capillary Venous Submitting Laboratory Phone [phone] Type And Screen 01/19/2019 [facility] Patient [place] [address] [phone] Antibody Screen NEGATIVE CBC With No 01/19/2019 [facility] White Blood 8.9 10^3/uL Normal 3.5-10.8 [place] [address] Count [phone] Red Blood Count 4.06 10^6/uL Normal 3.70-4.87 [...] fL Normal 7.4-10.4 PNL No 01/19/2019 [facility] Rubella Screen [place] [address] [phone] Hemoglobin A1c 5.3 % Normal 4.0-5.6 16 Hepatitis B Surface Ag Nonreactive Nonreactive Syphillis Igg W/Reflex RPR Negative Negative Laboratory test 01/19/2019 [facility] Enhanced PDF Report SEE IMAGE finding [id number] Sma Carrier Screen 01/19/2019 [facility] Technical Results NEGATIVE Negative 17 SMN1 2 COPIES SMN2 2 COPIES Interpretation SEE NOTE 18 Cfvantage(R) Cystic Fibrosis 01/19/2019 [facility] Ethnicity: Expanded SC CF Result NEGATIVE Negative 19 Interpretation SEE NOTE 20 Additional Information SEE NOTE 21 Mutations Analyzed SEE NOTE 22 GC/Chlamydia Dna 01/19/2019 [facility] Chlamydia [place] [address] trachomatis Esperanza [phone] Neisseria gonorrhoeae (GC) Esperanza Negative Negative Laboratory test 01/19/2019 [facility] Cytology SEE RESULT BELOW 23 [place] [address] [phone] 1 SEE RESULT BELOW Name: SHONDA ARREDONDO : [address]: Ricci Rudolph DO Acct: [id number] Unit: [id number] AGE: 33 Location: [facility] Re07/11/19 SEX: F Status: REG REF SPEC: [id number] VON: 07/11/19-1126 [facility] DR: Ricci Rudolph DO REQ: [id number] RECD: 07/11/19 STATUS: COMP _ SOURCE: RAJ/ANEESH/RE SPDESC: ORDERED: Blanca Wang COMMENTS: [id number] QUERIES: Is Patient Penicillin Allergic? N Is patient penicillin allergic and/or sensitivities needed? N Provider Requisition # C77#[id number]_ Procedure Result Reported Site Group B Strep Culture Screen Final 07/13/19- 0809 ML Group B Strep Screen Negative * - Main Lab . END OF REPORT DEPARTMENT OF PATHOLOGY, [address] [place] [address] Phi Vazquez M.D. Director [facility] # [id number] 2 [id number] 3 SCREEN NEGATIVE FOR OPEN NTD, DOWN SYNDROME AND TRISOMY 18. 4 Reference Range: <2.50 IDD <1.90 TWINS <4.00 TWINS IDD <3.50 TRIPLETS <4.50 5 This test was performed using a kit that has not been cleared or approved by the FDA. The analytical performance characteristics of this test have been determined by [facility]. This test should not be used for diagnosis without confirmation by other medically established means. 6 The Serum Integrated Screen combines ELSIE-A in the first trimester with AFP, unconjugated [...] technique. Interpretation reviewed by: Sherley Baltazar, Ph.D., [facility]. 7 ON TEST REQ ABOVE 8 [...] call ; For technical questions, call ext [phone]; For recalculations, fax to . For additional information, please refer to http://education.Vega-Chi.OpenSky/faq/FAQ93 (This link is being provided for informational/educational purposes only.) 9 Test Result Flag Unit RefValue Controlled Substance Monitoring, U List Patient's Not Provided Current Medications ADDITIONAL INFORMATION Accuracy and completeness of declared medications on reports solely dependent on information submitted by client. Creatinine, U 23.2 mg/dL Specific [place] 1.006 pH 5.4 Oxidants Negative REFERENCE VALUE [...] Not Detected ng/mL Cutoff: 25 Tylenol 3 Mjqnmbf-6-yuul- Not Detected ng/mL glucuronide Metabolite of codeine REFERENCE VALUE Cutoff: 100 Morphine Not Detected ng/mL Cutoff: 25 Luana Ham MS Contin; Also a minor metabolite (10%) of codeine and can be seen in low concentrations (<2,000 ng/mL) with poppy seed ingestion. Eugubbae-7-tgsm- Not Detected ng/mL glucuronide Metabolite of morphine REFERENCE VALUE Cutoff: 100 6-monoacetylmorphine Not Detected ng/mL Cutoff: 25 Metabolite of heroin Hydrocodone Not Detected ng/mL Cutoff: 25 Lortab, Mansura, Vicodin; Also a very minor metabolite of [...] Numorphan, Opana; Also a metabolite of oxycodone. Figsmmihxme-2-piwl- Not Detected ng/mL glucuronide Metabolite of oxymorphone REFERENCE VALUE Cutoff: 100 Noroxymorphone Not Detected ng/mL Cutoff: 25 Metabolite of oxymorphone Fentanyl Not Detected ng/mL Cutoff: 2 Actiq, Duragesic, Fentora Norfentanyl Not Detected ng/mL Cutoff: 2 Metabolite of fentanyl Meperidine Not Detected ng/mL Cutoff: 25 Demerol Normeperidine Not Detected ng/mL Cutoff: 25 Metabolite of meperidine Naloxone Not Detected ng/mL Cutoff: 25 Narcan Keicxzeq-5-mpsw- Not Detected ng/mL glucuronide Metabolite of naloxone [...] its performance characteristics determined by [facility] in a manner consistent with CLIA requirements. [...] its performance characteristics determined by [facility] in a manner consistent with CLIA requirements. This test has not been cleared or approved by the U.S. Food and Drug Administration. Test Performed by: [facility] [place] [address] Mechanical Service Technician: Nadir Goodson M.D. Ph.D.; CLIA# [id number] 10 SEE RESULT BELOW Name: SHONDA ARREDONDO : [address]: Briseyda Lozano MD Acct: [id number] Unit: [id number] AGE: 33 Location: [facility] Re02/05/19 SEX: F Status: REG REF SPEC: [id number] VON: 02/05/19 [facility] DR: Briseyda Lozano MD REQ: [id number] RECD: 02/05/19 STATUS: COMP _ SOURCE: SERUM SPDESC: ORDERED: Zika Screen, S COMMENTS: [id number] Procedure Result Reported Site Zika Screen [facility], Serum Final 02/13/19- 0825 ML Zika [...] the absence of current or recent infection. [id number] collected: Negative Please see additional information about zika virus at: Fact Sheet for Patients: Understanding Results from theZika IgM Rapid Test http://Sr.Pago/wp-content/uploads//For-patients.p df Fact Sheet for Healthcare Providers: Interpreting Zika IgM Rapid Test Results http://Sr.Pago/wp-content/uploads//Sjd-bomdsm-uig e-workes.pdf For detailed test interpretation guidance, please visit: https://health.[place].gov/diseases/zika_virus/providers.htm CONTINUED ON NEXT PAGE DEPARTMENT OF PATHOLOGY, [address] [place] [address] Phi Vazquez M.D. Director [facility] # [id number] Patient: SHONDA ARREDONDO [id number] (Continued) Specimen: [id number] Collected: 02/05/19 Received: 02/05/19 (Continued) Procedure Result Reported Site Natan Kim (continued) 02/13/19824 Flavivirus Polyvalent Microsphere Immunofluorescence Assay (IgG+IgM+IgA)* Results suggest the absence of Zika and dengue antibodies. If recent infection is suspected collect another specimen in three weeks. Zika Polyvalent Microsphere Immunofluorescence Assay [id number] collected 02/05/19Result:Non-Reactive Dengue Polyvalent Microsphere Immunofluorescence Assay [id number] collected 02/05/19Result:Non-Reactive * The performance characteristics of this test were determined by the [facility]. It has not been cleared or approved by the U.S.Food and Drug Administration. Cross reactivity frequently occurs in serologic testing. Test Performed by: [place] [address] * - [facility] . END OF REPORT DEPARTMENT OF PATHOLOGY, [address] [place] [address] Phi Vazquez M.D. Director [facility] # [id number] 11 SEE RESULT BELOW Name: SHONDA ARREDONDO : [address]: Briseyda Lozano MD Acct: [id number] Unit: [id number] AGE: 33 Location: [facility] Re02/05/19 SEX: F Status: REG REF SPEC: [id number] VON: 02/05/19 [facility] DR: Briseyda Lozano MD REQ: [id number] RECD: 02/05/19 STATUS: COMP _ S[facility] ORDERED: Zika Screen, Ur COMMENTS: [id number] Procedure Result Reported Site Zika Screen [place], Urine Final 02/13/19- 825 ML Zika virus RNA by real-time RT-PCR*:NOT DETECTED * The performance characteristics of this test were determined by the [facility]. It has not been cleared or approved by the U.S.Food and Drug Administration. Cross reactivity frequently occurs in serologic testing. Test Performed by: [facility] of [address] [address] * - Main Lab . END OF REPORT DEPARTMENT OF PATHOLOGY, [address] [place] [address] Phi Vazquez M.D. Director [facility] # [id number] 12 Thank you for submitting this patients Part 1 specimen. Please submit her Part 2 specimen between 02/20/2019-04/16/2019 (15.0 and 22.9 weeks gestation) with 02/20/2019-03/05/2019 (15.0 and 16.9 weeks gestation) being optimal. When submitting Part 2, please include the following Specimen # from Part 1: [id number] This test was developed and its analytical performance characteristics have been determined by [facility]. It has not been cleared or approved by FDA. This assay has been validated pursuant to the CLIA regulations and is used for clinical purposes. For additional information, please refer to http://education.GCT Semiconductor/faq/FAQ91 (This link is being provided for informational/educational purposes only.) It has been observed that patients who smoke cigarettes during may have a slightly increased risk of having a false positive GUILLAUME screen for Down Syndrome or trisomy 18. If you have questions concerning this report: For clinical consultation, call ; For technical questions, call ext [phone]; For recalculations, fax to [phone]. 13 SEE RESULT BELOW Name: SHONDA ARREDONDO : [address]: Xiomara Rivera CNM Acct: [id number] Unit: [id number] AGE: 33 Location: [facility] Re01/19/19 SEX: F Status: REG REF SPEC: [id number] VON: 01/19/19 [facility] DR: Xiomara Rivera [facility] REQ: [id number] RECD: 01/19/19 STATUS: COMP _ SOURCE: URINE SPDESC: ORDERED: Urine Culture COMMENTS: [id number] Urine Source: Random Procedure Result Reported Site Urine Culture Final 01/20/19- 1629 ML No Growth (<1,000 CFU/mL) * ML - Main Lab . END OF REPORT DEPARTMENT OF PATHOLOGY, [address] [place] [address] Phi Vazquez M.D. Director [facility] # [id number] 14 ADDITIONAL INFORMATION Testing performed by Inductively Coupled Plasma-Mass Spectrometry (ICP-MS). This test was developed and its performance characteristics determined by [facility] in a manner consistent with CLIA requirements. This test has not been cleared or approved by the U.S. Food and Drug Administration. 15 Test Performed by: [facility] - [address] [address] Mechanical Service Technician: Nadir Goodson M.D. Ph.D.; CLIA# [id number] 16 Therapeutic target for the treatment of diabetes mellitus patients is <7% HBA1C, and in selective patients <6.0%. Please refer to Citizen Of [place] Diabetes Association diabetic care guidelines for further [...] 41 1 in 350 1 in 4000 Confucianist 93% 1 in 53 1 in 628 1 in 5000 71% 1 in 66 1 in 121 1 in 3000 Citizen Of [place] 91% 1 in 117 1 in 1061 1 in [address] SUPPLEMENTAL INFORMATION Spinal muscular atrophy (SMA) is [...] genes (SMN1 and SMN2) recommended by the [place] [employer] (ACMG) for population-based SMA carrier screening. Health care providers, please contact your local [facility] genetic counselor or call [employer] [facility] at [employer] ([phone]) for assistance with the interpretation of these results. METHODOLOGY: The copy number of the SMA genes (SMN1 and SMN2) is detected by quantitative PCR. Although rare, false positive or false negative results may occur. All results should be interpreted in context of clinical findings, relevant history, and other laboratory data. Laboratory results and submitted clinical information reviewed by Shaggy Hinton, Ph.D., FAC, [facility]PITALJuanpablo, CGYONI. This test was developed and its analytical performance characteristics have been determined by [facility]. It has not been cleared or approved [...] currently unavailable for all mutations on the Cloud[employer]ix[employer](TM) Cystic Fibrosis Expanded Screen. Detection rates may be slightly higher and residual risk rates may be slightly lower than the figures in this table since the estimates are based on a subset of mutations. Racial/Ethnic Detection Carrier Carrier Group Rate, % Rate Risk Before After Testing Negative Test Result Ashkenazi Confucianist 95 05/11461 Non- 90 05/12 Citizen Of [place] 88 [phone] Citizen [place] 53 1199 Laboratory results and submitted clinical information reviewed by Omar Robledo MD, A, FACMG, CGMBS. 21 This assay detects the CF mutations listed below, including the twenty-three core mutations recommended by the [place] [employer] (ACMG) and the [place] Congress of Obstetricians and Gynecologists (ACOG) for [...] Health care providers, please contact your local [facility] genetic counselor or call at [employer] ([phone]) for assistance with interpretation of these results. [...] (c.595C>T), P205S (c.613C>T), L206W (c.617T>G), Q220X (c.658C>T), 134sgv72 (c.151ggq14), 935delA (c.803delA), 936delTA (c.805delAT), A118dcx (c.933delCTT), 1078delT (c.948delT), G330X (c.988G>T), R334W (c.1000C>T), I336K (c.1007T>A), T338I (c.1013C>T), S341P (c.1021T>C), 1154insTC (c.1022insTC), 1161delC (c.1029delC), R347P (c.1040G>C), R347H (c.1040G>A), R352Q (c.1055G>A), 1213delT (c.1081delT), 1248+1G>A (c.1116+1G>A), 1259insA (c.1127insA), 1288insTA (c.1153insAT), W401X (c.1202G>A or c.1203G>A), 1341+1G>A (c.1209+1G>A), 5603ebj3 (c.1329insAGAT), A455E (c.1364C>A), 1525-1G>A (c.1393-1G>A), S466X (c.1397C>A or c.1397C>G), L467P (c.1400T>C), 1548delG (c.1418delG), G480C (c.1438G>T), S489X (c.1466C>A), S492F (c.1475C>T), 1609delCA (c.1477delCA), Q493X (c.1477C>T), O519uxh (c.1519delATC), A060orc (c.1521delCTT), 1677delTA (c.1545delTA), V520F (c.1558G>T), C524X (c.1572C>A), Q525X (c.1573C>T), 1717-1G>A (c.1585-1G>A), 1717-8G>A (c.1585-8G>A), G542X (c.1624G>T), S549R (c.1645A>C or c.1647T>G), S549N (c.1646G>A), G551D (c.1652G>A), Q552X (c.1654C>T), R553X (c.1657C>T), A559T (c.1675G>A), R560K (c.1679G>A), R560T (c.1679G>C), 1811+1.6kbA>G (c.1679+1.6kbA>G), 1812-1G>A (c.1680-1G>A), P574H (c.1721C>A), D579G (c.1736A>G), E585X (c.1753G>T), 1898+1G>T (c.1766+1G>T), 1898+1G>A (c.1766+1G>A), 1898+3A>G (c.1766+3A>G), 1898+5G>T (c.1766+5G>T), 2043delG (c.1911delG), 8876hnx0>A (c.3533tnm3zkhW), 5181apd83kne2 (c.7907dud18ymkNJRYJ), 2108delA (c.1975delA), 2143delT (c.2011delT), 2183AA>G (c.205elAAinsG), 2184insA (c.2051insA), 2184delA (c.2052delA), R709X (c.2125C>T), K710X (c.2128A>T), 2307insA (c.2175insA), L732X (c.2195T>G), 2347delG (c.2215delG), R764X (c.2290C>T), 2585delT (c.2453delT), E822X (c.2464G>T), 2622+1G>A (c.2490+1G>A), E831X (c.2491G>T), W846X (c.2537G>A), R851X (c.2551C>T), 2711delT (c.2583delT), 2789+5G>A (c.2657+5G>A), Q890X (c.2668C>T), 2869insG (c.2737insG), L927P (c.2780T>C), S945L (c.2834C>T), 3007delG (c.2875delG), G970R (c.2908G>C), 3120G>A (c.2988G>A), 3120+1G>A (c.2988+1G>A), 3121-1G>A (c.2989-1G>A), 3171delC (c.3039delC), 1723fpq4 (c.3067delATAGTG), 3272-26A>G (c.3140-26A>G), M6078D (c.3194T>C), D5059F (c.3196C>T), Y0636I (c.3197G>A), Y1487Y (c.3230T>C), I2426T (c.3266G>A), V8179V (c.3276C>A or c.3276C>G), R2748T (c.3278T>C), F3751R (c.3302T>A), Z1336C (c.3310G>T), Q4520L (c.3382A>T), V9585C (c.3435G>A), I8795B (c.3472C>T), S5957Q (c.3484C>T), 3659delC (c.3528delC), 4181axe8 (c.3535delACCA), Q9492L (c.3587C>G), D9550F (c.3611G>A or c.3612G>A), 3791delC (c.3659delC), 3821delT (c.3691delT), K6134D (c.3700A>G), R1953U (c.3712C>T), 3849+10kbC>T (c.3717+66444K>T), H0104E (c.3731G>A), 3876delA (c.3744delA), T9870B (c.3752G>A), V8808F (c.3764C>A), 3905insT (c.3773insT), J9064R (c.3846G>A), M2120P (c.3848G>T), 4005+1G>A (c.3873+1G>A), 4016insT (c.3884insT), I8947X (c.3909C>G), Y5677L (c.3937C>T), TJMXiojf82,23, 4209TGTT>AA (c.4077delTGTTinsAA), 4382delA (c.4251delA) This test was developed and its analytical performance characteristics have been determined by [facility]. It has not been cleared or approved by FDA. This assay has been validated pursuant to the CLIA regulations and is used for clinical purposes. For additional information, please refer to http://education.[employer]/faq/DPH553 (This link is being provided for information/educational purposes only.) 23 SEE RESULT BELOW Name: SHONDA ARREDONDO : [address]: Xiomara Rviera CNM Acct: [id number] Unit: [id number] AGE: 33 Location: [facility] Re01/19/19 SEX: F Status: REG REF SPEC: [id number] VON: 01/19/[address]: Xiomara Rivera CNM REQ: [id number] RECD: 01/22/19 STATUS: SOUT _ ORDERED: TP IMAGE ANALYS, HPV/Thin Prep COMMENTS: [id number] FINAL DIAGNOSIS Negative for Intraepithelial lesion or [...] CONTINUED ON NEXT PAGE DEPARTMENT OF PATHOLOGY, [facility] [employer] [place] [address] Phi Vazquez M.D. Director [facility] # [id number] Previous Abnormal Pap Smears?:N Signed by and Reported on: NIGEL Hill (ASCP) 1432 This Pap test was evaluated with the assistance of the [employer] Test Imaging System. Due to cytologic findings at the overlock collar setter microscope, comprehensive manual rescreening by a [employer] may be required. The Pap Smear is [...] years. END OF REPORT DEPARTMENT OF PATHOLOGY, [facility] [employer] [place], [place] [address] Phi Vazquez M.D. Director [facility] # [id number] Procedures Date Code Description Status 07/05/2019 22552 Biophysical Profile Without Non Stress Test Completed 07/05/2019 66210 Echography Uterus Follow-Up Or Repeat Completed 06/28/2019 92215 Biophysical Profile W/ NST Completed 06/28/2019 40731 Non-Stress Test Completed 06/22/2019 28703 Biophysical Profile Without Non Stress Test Completed 06/22/2019 08196 Echography Uterus Limited Completed 06/08/2019 49688 Biophysical Profile Without Non Stress Test Completed 06/08/2019 56642 Echography Uterus Follow-Up Or Repeat Completed 03/26/2019 89727 Echography Uterus Complete Completed 01/19/2019 45629 OB Ultrasound First Trimester Completed Medical Devices [...] Complete placenta previa NOS or without Xiomara Rivera CNM hemorrhage, third trimester 06/08/2019 O44.02 Complete [...] Encounter for supervision of other normal Maryanne LUIS Pappas , second trimester 02/05/2019 Z36.9 Encounter for [...] Encounter for supervision of other normal Xiomara LUIS Rivera , first trimester 01/19/2019 O26.91 related conditions, unspecified, Ultrasounds first trimester Plan of Treatment Future Appointment(s):07/20/2019 2:00 pm - Nurses at [facility]07/20/2019 2: 30 pm - Ultrasounds at [facility]07/20/2019 3:00 pm - Abida Perez MD at [facility]08/28/2019 11:00 am - Abida Perez MD at [facility]08/01/2019 2 :00 pm - Danika Moncada CNM at [facility]07/25/2019 7:45 am - Abida Perez MD at [facility] R Functional Status Description No Information Available Mental Status Description No Information Available Referrals Description No Information Available
[2019-07-25 06:56] LABS: Urine Benzodiazepine Screen None Detected (None Detect); Urine Buprenorphine Screen None Detected (None Detect); Urine Fentanyl Screen None Detected (None Detect); Urine Hydrocodone Screen None Detected (None Detect); Urine Opiates Screen None Detected (None Detect)
[2019-07-25] MEDS ORDERED: ceFAZolin* 2 GM* ONE DOSE (Duplex) IVPB (07:00)
[2019-07-25] MEDS ORDERED: Buffered Lidocaine 1% SYRIN* 1 ML/SYRINGE INTRADERM ONE (07:22)
[2019-07-25] MEDS ORDERED: Sodium Citrate/Citric Acid* 15 ML UDC PO ONE (07:22)
[2019-07-25] MEDS ORDERED: Ondansetron INJ* 2 MG/ML VIAL IV ONE (07:22)
[2019-07-25] MEDS ORDERED: Morphine PF AMP (0.5MG/ML)* 5 MG/10 ML AMP ONE (07:49)
[2019-07-25] MEDS ORDERED: fentaNYL* 50 MCG/ML 2 ML VIAL (100 MCG VIAL) ONE (07:50)
[2019-07-25] MEDS ORDERED: Lactated Ringers 1000 ML Bag* 1,000 ML IV SCH ×2 (08:00→15:00)
[2019-07-25] MEDS ORDERED: OXYTOCIN* 10 UNITS/ML 1 ML VIAL ONE (08:35)
[2019-07-25] MEDS ORDERED: Phenylephrine 40 MCG/ML SYRINGE ONE (08:48)
[2019-07-25] MEDS ORDERED: Naloxone* 0.4 MG/ML 1 ML VIAL IV PRN ×2 (08:56→08:57)
[2019-07-25] MEDS ORDERED: oxyCODONE TAB* 5 MG TAB PO PRN ×2 (08:56→08:57)
[2019-07-25] MEDS ORDERED: Metoclopramide IV* 5 MG/ML 2 ML VIAL IV PRN (08:56)
[2019-07-25] MEDS ORDERED: fentaNYL* 50 MCG/ML 2 ML VIAL (100 MCG VIAL) IV PRN (08:56)
[2019-07-25] MEDS ORDERED: Acetaminophen TAB* 325 MG PO PRN (08:57)
[2019-07-25] MEDS ORDERED: Nalbuphine* 10 MG/ML 1 ML VIAL IV PRN (08:57)
[2019-07-25] MEDS ORDERED: Naloxone* 2 MG in NS 0.9% 250 ML* 250 ML IV PRN (08:57)
[2019-07-25] MEDS: Ibuprofen TAB* 600 MG PO SCH ×3 (12:30→18:16)
[2019-07-25] MEDS ORDERED: Witch Hazel PAD* JAR TOPICAL PRN (14:04)
[2019-07-25] MEDS: Docusate CAP* 100 MG PO SCH ×2 (14:44→21:23)
[2019-07-25] MEDS: Simethicone TAB* 80 MG TAB.CHEW PO SCH ×3 (14:44→21:23)
--- NOTE | 2019-07-25 15:31 | OP ---
OPERATIVE REPORT: DATE OF OPERATION: 07/25/19 DATE OF : 87 SURGEON: Abida Perez MD RIVET CATCHER: Maryanne Pappas CNM ANESTHESIA: Spinal. PRE-OP DIAGNOSES: Intrauterine gestation at 37 weeks, complete placenta previa with anterior placent a. POST-OP DIAGNOSES: Intrauterine gestation at 37 weeks, complete placenta previa with anterior placen ta. OPERATIVE PROCEDURE: Primary lower transverse section. ESTIMATED BLOOD LOSS: 700 mL. SPECIMEN: Placenta. FLUIDS: Crystalloid. DRAINS: Tinajero catheter. FINDINGS: Female , Apgars 9 and 9, weight 6 pounds 1 ounce, anterior normal appearing placenta . DESCRIPTION OF PROCEDURE: After informed consent was signed, the patient was taken to the operating room where she was given spinal anesthesia, that was found to be adequate. She was prepped and drape d in the dorsal supine position with leftward tilt. A Pfannenstiel skin incision was made with a sca lpel and carried down to the underlying layer of fascia. The fascia was incised on either side of th e midline and the incision extended laterally with blunt pressure. The inferior edge of the fascial incision was grasped with Lyle clamps, tented up, and dissected down with blunt dissection. Then, the superior edge of the fascial incision was grasped with Lyle clamps, tented up, and dissected do wn with a combination of sharp and blunt dissection. The rectus muscles were in the midlin e and the peritoneum was entered bluntly. The peritoneal incision was extended laterally with blunt pressure. A transverse incision was made in the lower uterine segment and the incision was extended superiorly and inferiorly with blunt pressure. The placenta was noted immediately on entrance into t he uterus and continued dissection through the placenta allowed to push the placenta up and delivered the baby's head in cephalic presentation through the incision with fundal pressure followed quickly by the shoulders and the rest of the body. The placenta then delivered quickly and appeared to be co mplete. The cord was milked quickly and then clamped x2 and cut and the baby was handed to the neona tologist. The uterus was exteriorized and cleared of clots and debris. The uterine incision was jessica sed with 0-Vicryl in a running locked fashion with a second layer suture imbricating the first. The abdomen was irrigated, the uterus was then placed back into the abdominal cavity and the incision was inspected and good hemostasis was noted. The peritoneum was closed with 3-0 Vicryl in a running unl ocked fashion. The fascia was closed with 0 Vicryl in a running unlocked fashion and the skin was cl osed with 4-0 Monocryl in a running subcuticular fashion. The incision was cleaned and dressed, the patient was moved to the stretcher and taken to the recovery room in stable condition. [id number]/[facility] #: [id number]
[2019-07-26 05:25] LABS: Hematocrit 32 % (35-47); Hemoglobin 10.7 g/dL (12.0-16.0); Mean Corpuscular HGB Conc 34 g/dL (31-36); Mean Corpuscular Hemoglobin 31 pg (27-31); Mean Corpuscular Volume 92 fL (80-97); Mean Platelet Volume 7.8 fL (7.4-10.4); Platelet Count 170 10^3/uL (150-450); Red Blood Count 3.45 10^6 /uL (3.70-4.87); Red Cell Distribution Width 13 % (10-15)
[2019-07-26] MEDS: Acetaminophen TAB* 325 MG PO PRN ×3 (05:49→19:54)
[2019-07-26] MEDS: oxyCODONE TAB* 5 MG TAB PO PRN ×4 (05:49→23:22)
[2019-07-26] MEDS: Ibuprofen TAB* 600 MG PO SCH (07:40)
[2019-07-26] MEDS: Ferrous Gluconate TAB* 324 MG TAB PO SCH (07:41)
[2019-07-26] MEDS: Simethicone TAB* 80 MG TAB.CHEW PO SCH ×4 (07:41→19:54)
[2019-07-26] MEDS: Docusate CAP* 100 MG PO SCH ×3 (07:41→19:54)
[2019-07-26 08:14] LABS: ABS Eosinophils 0.1 10^3/ul (0-0.6); ABS Lymphocytes 1.4 10^3/ul (1.0-4.8); ABS Monocytes 1.6 10^3/ul (0-0.8); ABS Neutrophils 10.8 10^3/ul (1.5-7.7); Eosinophil % 0.5 %; Lymphocyte % 10.2 %
[2019-07-26] MEDS: Ibuprofen TAB* 600 MG PO PRN ×3 (10:48→22:01)
[2019-07-27] MEDS: Ibuprofen TAB* 600 MG PO PRN ×3 (05:22→19:16)
[2019-07-27] MEDS: Ferrous Gluconate TAB* 324 MG TAB PO SCH ×2 (07:56→09:03)
[2019-07-27] MEDS: Docusate CAP* 100 MG PO SCH ×3 (09:02→21:07)
[2019-07-27] MEDS: Simethicone TAB* 80 MG TAB.CHEW PO SCH ×4 (09:02→21:07)
[2019-07-27] MEDS: Acetaminophen TAB* 325 MG PO PRN ×2 (09:02→21:07)
[2019-07-27] MEDS: oxyCODONE TAB* 5 MG TAB PO PRN ×3 (12:32→22:31)
[2019-07-28] MEDS: Ibuprofen TAB* 600 MG PO PRN ×2 (01:39→08:12)
[2019-07-28] MEDS: Acetaminophen TAB* 325 MG PO PRN ×3 (01:39→12:56)
[2019-07-28] MEDS: Docusate CAP* 100 MG PO SCH (08:11)
[2019-07-28] MEDS: Simethicone TAB* 80 MG TAB.CHEW PO SCH (08:12)
[2019-07-28 08:53] VITALS: BP 118/75
[2019-07-28] MEDS: oxyCODONE TAB* 5 MG TAB PO PRN (12:56)
== END 2019-07-28 13:36 | disposition home or self-care (01) | DRG 540 ==
LOC: MCHOB 06:00
PROVIDERS: ADMIT Obstetrics & Gynecology; ATTEND Obstetrics & Gynecology
PROC: 10D00Z1 Extraction of Products of Conception, Low, Open Approach (ICD-10-PCS; principal; 2019-07-25 07:45)
DX: O44.03 Complete placenta previa NOS or without hemorrhage, third trimester (principal); Z3A.37 37 weeks gestation of pregnancy; Z37.0 Single live birth
CPT/HCPCS: 36415; 80307; 85025; 88307; A9270-GY; G0480; J0690; J2405; J2590; J3010